=== PATIENT | female | born 1965 | race Caucasian/White ===

== ENCOUNTER 2016-04-26 01:48 | Inpatient (IN) | payer OTHER ==
[~2016-04-26] VITALS: Ht 167.6 cm; Wt 76.4 kg
[~2016-04-26 01:48] MED LIST: CLON-379 PO; DOXY-220 PO; Digoxin PO; FAMO-95 PO; LISI-523 PO; PROP40TA4 PO; RIVA20TA PO; TAP5 PO
--- NOTE | 2016-04-26 02:28 | RADRPT ---
PROCEDURE: XR Chest. CLINICAL INDICATION: Patient experiencing possible Sepsis TECHNIQUE: Portable single view of the chest COMPARISON: 08/25/2015 FINDINGS: Shallower lung inflation accentuates the heart size which likely remains top normal or minimally enl arged. There is slight right base subsegmental atelectasis. Early right base infiltrate is also po ssible. Top normal pulmonary vascularity. No left lung infiltrate or large effusion. There may be a tiny right effusion. No acute bony abnormality. IMPRESSION: Shallow lung inflation. Right base atelectasis and possible early infiltrate. Possible tiny right effusion. RPTAT: [facility] Physician Kayla Date Time Electronically viewed and signed by Carline Owusu Physician on 04/26/2016 02:28 XIMENA/
[2016-04-26] MEDS ORDERED: DILTIAZEM 25 MG INJ IV ONE (02:30)
[2016-04-26 02:46] LABS: BASOPHIL # 0.1 10^3/ul (0.0-0.1); BASOPHILS % 0.7 % (0.0-2.0); EOSINOPHILS % 0.5 % (0.0-7.0); HEMATOCRIT 35.5 % (37.0-47.0); HEMOGLOBIN 11.3 g/dl (12.0-16.0); LYMPHOCYTES # 2.6 10^3/ul (0.8-2.9); LYMPHOCYTES % 29.1 % (15.0-51.0); MEAN CORPUSCULAR HGB CONC 31.7 g/dl (32.0-37.0); MEAN PLATELET VOLUME 8.2 fl (7.4-10.4); MONOCYTE # 0.8 10^3/ul (0.3-0.9); NEUTROPHIL # 5.5 10^3/ul (1.6-7.5); NEUTROPHILS % 60.7 % (39.0-77.0); PLATELET COUNT 316 10^3/UL (140-440); RED CELL DISTRIBUTION WIDTH 16.6 % (11.5-14.5)
[2016-04-26 02:47] LABS: ALBUMIN 3.5 g/dl (3.3-4.9)
[2016-04-26 02:48] LABS: POTASSIUM 4.5 mmol/L (3.5-5.1)
[2016-04-26 02:49] LABS: INR 1.44; PROTIME 17.6 Sec (12.2-14.2); PT RATIO 1.4
[2016-04-26 02:50] LABS: ALBUMIN/GLOBULIN RATIO 0.94; BILIRUBIN,INDIRECT 0.6 mg/dl (0-1.1); BILIRUBIN,TOTAL 0.6 mg/dl (0.2-1.3); CREATININE 0.8 mg/dl (0.44-1.00); TOTAL PROTEIN 7.2 g/dl (6.1-8.1)
[2016-04-26 02:51] LABS: CALCIUM 9.7 mg/dl (8.4-10.2)
[2016-04-26 02:55] LABS: CONDITION 1; LH ANALYZER COMMENTS 1
[2016-04-26 02:59] LABS: PARTIAL THROMBOPLASTIN TIME 24.2 Sec (25.0-35.0)
[2016-04-26 03:05] LABS: TROPONIN-I 0.585 ng/ml (0.00-0.12)
[2016-04-26] MEDS ORDERED: CEFEPIME 2GM/50 ML (PMX) 50 ML IVPB STA (03:23)
[2016-04-26] MEDS ORDERED: SODIUM CHLORIDE 0.9% 1L BAG IV* STA (03:23)
[2016-04-26] MEDS ORDERED: VANCOMYCIN 1 GM (PMX) 250 ML IVPB ONE (03:30)
[2016-04-26] MEDS ORDERED: ONDANSETRON 4 MG INJ IV STA (03:55)
[2016-04-26] MEDS ORDERED: ONDANSETRON 4 MG INJ ONE (03:57)
--- NOTE | 2016-04-26 04:19 | ERA ---
ER Documentation Chief Complaint Date/Time DATE: 04/26/16 TIME: 04:16 Chief Complaint FLU LIKE SYMPTOMS FOR PAST WEEKS WITH RAPID HEART RATE DENIES CP, SOB HPI This is a 50-year-old female with flulike symptoms for the past week. Patient is homeless. Brought in by rescue. Patient also says that she has had a rapid heart rate. She denies chest pain. She denies shortness of breath. Complains she has had a runny nose and a nonproductive cough. ROS All systems reviewed and are negative except as per history of present illness. Medications Home Meds Active Scripts Doxycycline Monohydrate* (Doxycycline Monohydrate*) 100 Mg Tablet, 100 MG PO BID for 5 Days, TAB Prov:REGPUNEETRKASSIE 08/29/15 Propranolol Hcl* (Propranolol Hcl*) 40 Mg Tab, 40 MG PO QID for 30 Days, TAB Prov:REGIDORKASSIE 08/29/15 Rivaroxaban* (Xarelto*) 20 Mg Tablet, 20 MG PO WITH DINNER for 30 Days, TAB Prov:REGIDORKASSIE 08/29/15 Methimazole* (Methimazole*) 5 Mg Tab, 30 MG PO DAILY for 30 Days, TAB Prov:REGIDORKASSIE 08/29/15 Lisinopril* (Zestril*) 5 Mg Tab, 2.5 MG PO DAILY for 3 Days, TAB Prov:REGIDORKASSIE 08/29/15 Famotidine* (Pepcid* AC) 20 Mg Tab, 20 MG PO BID for 30 Days, TAB Prov:REGPUNEETRKASSIE 08/29/15 Clonidine Hcl* (Clonidine Hcl*) 0.1 Mg Tab, 0.1 MG PO Q4H Y for sbp>160, #20 TAB Prov:REGPUNEETRKASSIE 08/29/15 [Digoxin] 0.25 MG TAB No Conflict Check, 0.25 MG PO DAILY@13 for 30 Days, TAB Prov:REGPUNEETRKASSIE 08/29/15 Allergies Allergies: Coded Allergies: No Known Allergy (Unverified , 03/11/14) PMhx/Soc History of Surgery: Yes Anesthesia Reaction: No Hx Neurological Disorder: No Hx Respiratory Disorders: No Hx Cardiac Disorders: Yes Hx Psychiatric Problems: No Hx Miscellaneous Medical Probl: No Hx Alcohol Use: No Hx Substance Use: No Hx Tobacco Use: No Smoking Status: Current every day smoker Physical Exam Vitals Vital Signs Date Time Temp Pulse Resp B/P Pulse Ox O2 Delivery O2 Flow Rate FiO2 04/26/16 01:51 98.8 125 18 126/64 97 04/26/16 01:51 Nasal Cannula 4 04/26/16 01:51 98.6 125 18 123/64 97 Nasal Cannula 4.0 Physical Exam Const: [] Head: Atraumatic Eyes: Normal Conjunctiva ENT: Normal External Ears, Nose and Mouth. Neck: Full range of motion..~ No meningismus. Resp: Clear to auscultation bilaterally Cardio: Regular rate and rhythm, no murmurs Abd: Soft, non tender, non distended. Normal bowel sounds Skin: No petechiae or rashes Back: No midline or flank tenderness Ext: No cyanosis, or edema Neur: Awake and alert Psych: Normal Mood and Affect Result Diagram: 04/26/1622204/26/16222 Results 24 hrs Laboratory Tests Test 04/26/16 02:23 Activated Partial Thromboplast Time 24.2Sec Alanine Aminotransferase (ALT/SGPT) 56IU/L Albumin 3.5g/dl Albumin/Globulin Ratio 0.94 Alkaline Phosphatase 177IU/L Anion Gap 19 Aspartate Amino Transf (AST/SGOT) 47IU/L Basophils # 0.110^3/ul Basophils % 0.7% Blood Morphology Comment Blood Urea Nitrogen 22mg/dl Calcium Level 9.7mg/dl Carbon Dioxide Level 23mmol/L Chloride Level 101mmol/L Creatinine 0.80mg/dl Direct Bilirubin 0.00mg/dl Eosinophils # 0.010^3/ul Eosinophils % 0.5% Globulin 3.70g/dl Glucose Level 99mg/dl Hematocrit 35.5% Hemoglobin 11.3g/dl INR International Normalized Ratio 1.44 Indirect Bilirubin 0.6mg/dl Lactic Acid Level 2.3mmol/L Lymphocytes # 2.610^3/ul Lymphocytes % 29.1% Mean Corpuscular Hemoglobin 25.0pg Mean Corpuscular Hemoglobin Concent 31.7g/dl Mean Corpuscular Volume 79.0fl Mean Platelet Volume 8.2fl Monocytes # 0.810^3/ul Monocytes % 9.0% Neutrophils # 5.510^3/ul Neutrophils % 60.7% Nucleated Red Blood Cells # 0.010^3/ul Nucleated Red Blood Cells % 0.0/100WBC Platelet Count 71402^3/UL Potassium Level 4.5mmol/L Prothrombin Time 17.6Sec Prothrombin Time Ratio 1.4 Red Blood Count 4.5010^6/ul Red Cell Distribution Width 16.6% Sodium Level 138mmol/L Total Bilirubin 0.6mg/dl Total Protein 7.2g/dl Troponin I 0.585ng/ml White Blood Count 9.010^3/ul Current Medications Medications (Trade) Dose Ordered Sig/Nichol Route PRN Reason Start Time Stop Time Status Last Admin Dose Admin Diltiazem HCl (Cardizem Iv) 20 mg ONCE ONCE IV 04/26/16 02:30 04/26/16 02:31 DC 04/26/16 03:10 Sodium Chloride 2020 ml 2,020 ml BOLUS OVER 2 HOURS STAT IV* 04/26/16 03:23 04/26/16 03:29 DC 04/26/16 03:50 Cefepime HCl 50 ml @ 100 mls/hr ONCE STAT IVPB 04/26/16 03:23 04/26/16 03:52 DC 04/26/16 03:45 Vancomycin HCl (Vancocin) 250 ml @ 125 mls/hr ONCE ONCE IVPB 04/26/16 03:30 04/26/16 05:29 Ondansetron HCl (Zofran Inj) 4 mg ONCE STAT IV 04/26/16 03:55 04/26/16 03:59 DC 04/26/16 04:03 Ondansetron HCl (Zofran Inj) 4 mg STK-MED ONCE .ROUTE 04/26/16 03:57 04/26/16 03:58 DC Procedures/MDM EKG: Rate/Rhythm: Irregular rate, tachycardic at 1 44 bpm QRS, ST, T-waves: [No changes consistent w/ acute ischemia] Impression: A. fib with RVR Chest X-ray 1V Interpreted by me: Soft Tissue: No acute abnormalities Bones: No acute abnormalities Mediastinum/Cardiac Silhouette/Lungs: Right lower lobe pneumonia Patient's infectious symptoms have not stabilized and the patient is at risk of rapid decompensation. The patient will be admitted for careful hydration, antibiotic therapy, and infectious source control. Severe Sepsis Assessment: Infectious Source: Pneumonia End organ damage indicated by: [Lactate > 2.0 mmol/L Severe Sepsis Managment: Blood Cultures X 2 before broad spectrum antibiotics initiated within 3 hours of recognition. 30 ml/kg NS bolus Completed Initial Lactate: 2.3 Repeat Lactate pending Critical Care: Time: 45 minutes Treatments/Evaluations: Emergent fluid management, while maintaining close respiratory support. Immediate broad spectrum antibiotic therapy. Simultaneous assessment for possible sources in order to direct therapy. Consideration for invasive and chemical support to prevent respiratory or cardiac collapse. Septic Shock Assessment (1 hour post 30 ml/kg fluid bolus): Hypotension (SBP < 90 or 40 mmHg drop, MAP < 65): [No] Lactic acid > 4.0 [No] Perfusion Reassessment for Septic Shock: Temp 98.6, Pulse 120], RR 18, BP 137/87 Heart Exam: [Tachycardic] Lung Exam: [No Crackles] Capillary Refill: [Delayed] Peripheral Pulses: [Radially present] Skin: [Mottled, pale] Patient also has atrial fibrillation with rapid ventricular response. Patient has known history of A. fib, but has been noncompliant. Patient has a positive troponin. Patient's non-STEMI has been treated with aspirin therapy. hospitalist made aware Accepting Care Team: Current data and ongoing care discussed. Time: 4 AM Primary Provider: geovanna Consulting: None Outstanding Data: none Departure Diagnosis: Primary Impression: Sepsis Qualified Code: A41.9 - Sepsis, due to unspecified organism Additional Impressions: Atrial fibrillation with rapid ventricular response Non-STEMI (non-ST elevated myocardial infarction) Pneumonia Qualified Code: J18.9 - Pneumonia of right lower lobe due to infectious organism Condition: Critical ZARI VALLADARES Apr 26, 2016 04:19
[2016-04-26] MEDS ORDERED: ASPIRIN 81 MG TAB PO ONE (04:30)
[2016-04-26] MEDS ORDERED: DILTIAZEM-D5W 125MG/125ML DRIP 125 ML IV SCH (07:00)
[2016-04-26] MEDS ORDERED: SOD CHLORIDE 0.9% 1,000 ML IV SCH (08:00)
[2016-04-26 08:30] LABS: CK-MB 4.37 ng/ml (0.0-2.4)
[2016-04-26 08:35] LABS: TOTAL PROTEIN 6.4 g/dl (6.1-8.1)
[2016-04-26 08:39] LABS: TROPONIN-I 0.522 ng/ml (0.00-0.12)
[2016-04-26] MEDS ORDERED: SOD CHLORIDE 0.9% 1,000 ML IV STA (08:48)
[2016-04-26 08:52] LABS: IRON 77 ug/dl (35-150)
[2016-04-26] MEDS: LISINOPRIL 5 MG TAB PO SCH (09:00)
[2016-04-26] MEDS ORDERED: PROPRANOLOL 40 MG TAB PO SCH (09:00)
[2016-04-26] MEDS: ASPIRIN (EC) 81 MG TAB PO SCH (09:00)
[2016-04-26] MEDS: FAMOTIDINE 20 MG TAB PO SCH ×2 (09:00→22:37)
[2016-04-26 09:02] LABS: TOTAL IRON BINDING CAPACITY 391 ug/dl (241-421)
--- NOTE | 2016-04-26 09:24 | HP ---
DATE OF ADMISSION: 04/26/2016 PRESENTING COMPLAINT: Flu-like symptoms, palpitations and a feeling of having a rapid heart rate. HISTORY OF PRESENTING COMPLAINT: This is a 50-year-old female known to our service because of a his tory thyrotoxicosis, atrial fibrillation, noncompliance with therapy, who was brought in today by [facility] [place] because of runny nose, cold and cough, congestion and palpitations. In the emergency r oom, she was found to be in atrial fibrillation with rapid ventricular response and a preliminary wo rkup did show she has an elevated troponin and she is being admitted for further management and inte rvention. PAST MEDICAL HISTORY: Positive for the followin. Thyrotoxicosis, hypothyroidism, likely secondary to Graves' disease. 2. Atrial fibrillation, chronic. 3. High blood pressure. 4. Chronic heart failure secondary to thyroid disease as well as AFib. 5. Chronic tobacco dependence. PAST SURGICAL HISTORY: Positive for and tumor removal on her scalp. ALLERGIES: THE PATIENT HAS NO KNOWN DRUG ALLERGIES. SOCIAL HISTORY: She is a current every day smoker. Denies illicit drug use or alcohol use. The pat ely has remote history of cocaine and methamphetamine use in the past. She is also sober at this t [facility], used to drink alcohol heavily in the past as well FAMILY HISTORY: Positive for heart disease in her grandmother, diabetes in her mother. PHYSICAL EXAMINATION VITAL SIGNS: Temperature 98.8, pulse anywhere from 133 to 155, respirations 18, blood pressure 119/ 80, saturations 99% on room air. GENERAL: I found a somewhat frail lady who is sleepy at time of my review, but arousable and once a roused, able to answer questions appropriately. HEENT: Head is normocephalic. Pupils equal and reactive with mild conjunctival pallor. RESPIRATORY: Clear to auscultation with good air entry. CARDIOVASCULAR: Tachycardic with irregularly irregular rhythm. No murmurs noted though. Trace low er extremity edema bilaterally. ABDOMEN: Soft, nontender, nondistended with normoactive bowel sounds. EXTREMITIES: She has no joint swelling or deformities. NEUROLOGIC: She has no focal deficits other than that she was lethargic and sleepy. SKIN: Negative for ____ . LABORATORY VALUES: The following abnormalities were pertinent: 1. BUN of 22. 2. Troponin 0.585, which is elevated. 3. Elevated AST of 47 as well as an alkaline phosphatase of 177. 4. Hypochromic microcytic anemia that is chronic for her, with a hemoglobin of 11, which is actuall y better than her previous baseline. IMAGING: EKG shows atrial fibrillation with rapid ventricular response. Chest x-ray shows shallow lung inflation with right base atelectasis and a possible early infiltrate on the right and echocardiogram July of 2015 showed EF of 35%. Moderate mitral regurgitation, peak arterial pressure of 24, normal, mild concentric left ventricular hypertrophy and trace tricuspid r egurgitation. IMPRESSION: A 50-year-old female with the followin. Atrial fibrillation with rapid ventricular response, likely secondary to #3. 2. Non-ST elevation myocardial infarction, likely secondary to #1. 3. Hypothyroidism with likely thyrotoxicosis thought to be secondary to underlying Graves' disease with probable noncompliance with therapy. 4. Chronic cardiomyopathy with last known ejection fraction of 35%, drug induced versus ischemic. 5. Probable mild congestive heart failure exacerbation. It is an acute variable systolic congestive heart failure exacerbation. 6. Acute community-acquired pneumonia with probable early sepsis and lactic acidosis with tachycard ia and lactic acidosis. 7. The patient has history of polysubstance abuse to include meth, heroin as well as alcohol. PLAN: Admit the patient to telemetry floor, complete ACS rule out. Continue the patient on anticoagu lation with home Xarelto, and patient will be also continued on digoxin therapy. The patient to be resumed on her home medication propranolol as well as methimazole and continue her ANGELIQUE inhibitor whi le she is here. Throughout time the patient was here, she was also on Lasix therapy daily. This does not reflect in her home meds. I will go ahead and resume that and I will barry culture her to include blood and urin e cultures and also commence empiric antibiotics for community-acquired pneumonia until our antibiot ics according to our findings. For her rapid AFib she is put on a Cardizem drip while we wait for he r oral medications to kick in and she will need close monitoring and further interventions will depe nd on our findings. For prophylaxis she is on Xarelto and Pepcid and further interventions will dep end on clinical course. Consultations will be obtained with cardiology, Dr. Umana and endocrinology, Dr. Santos. Dictated By: JOSE PALOMINO MD BA/NTS Conf#: [id number] DID#: [id number]
[2016-04-26] MEDS ORDERED: DIGOXIN 500 MCG INJ IV ONE ×3 (10:00→22:00)
[2016-04-26] MEDS ORDERED: ESMOLOL 250 ML IV SCH (10:00)
--- NOTE | 2016-04-26 10:08 | QN ---
Documentation Comment Observation Note: Time: 4 hours Family Hx: Negative for diabetes Evaluation: Multiple exams showed improving symptoms and no evidence of clinical decompensation. ROYAL DINERO MD Apr 26, 2016 10:08
--- NOTE | 2016-04-26 10:15 | CONS ---
Date/Time of Note Date/Time of Note DATE: 04/26/16 TIME: 10:05 Assessment/Plan Assessment/Plan Chief Complaint/Hosp Course Acute on chronic systolic/diastolic heart failure: The patient is decompensated currently. Her EF is known to be ~35%. Unclear what the trigger was but possibly thyrotoxicosis leading to afib with RVR leading to CHF. Needs diuresis Afib with RVR: Secondary to thyrotoxicosis but exacerbating and exacerbated by heart failure Thyrotoxicosis NSTEMI: type 2 in setting of all three above. EF known to be low. As she is asymptomatic, at this time further ischemic evaluation may be difficult as she has multiple admissions due to noncompliance and if she would need a stent, this would make the situation more difficult. Once she has established outpt follow up she certainly needs ischemic eval. Cardiomyopathy: EF 35%. Most likely nonischemic but needs ischemic eval at some point Hyperthyroidism -stop IVF -start lasix 40mg IV BID -switch cardizem drip to esmolol as the pt has low EF and heart failure and would be better for her thyrotoxicosis as well -reload with digoxin as her levels are low and pt admits to not taking her meds -increase propranolol to 80mg q6h. Ideally eventually should be switched to a BB approved for cardiomyopathy Problems: Consultation Date/Type/Reason Admit Date/Time Date of Consultation: Apr 26, 2016 Type of Consultation: Cardiology Referring Provider: JOSE PALOMINO Hx of Present Illness 50 yo homeless female with a h/o med noncompliance, hyperthyroidism, afib on Xarelto, chronic systolic heart failure (EF 35%), who presented with "flu like symptoms" and was found to have thyrotoxicosis, afib with RVR, NSTEMI. The patient notes that she does not receive outpt follow up and so has not been taking any of her meds. She notes that she has been having a "flu" which she notes is associate with SOB, rapid heart rate, nausea/vomiting/diarrhea. She currently still feels ill. She denies ever having chest pain. per HPI Past Medical History per HPI Past Surgical History Past Surgical Hx: other Social History Smoking Status: Current every day smoker Exam/Review of Systems Vital Signs Vitals Vital Signs Date Time Temp Pulse Resp B/P Pulse Ox O2 Delivery O2 Flow Rate FiO2 04/26/16 09:18 120 20 107/43 99 Room Air 04/26/16 01:51 98.8 04/26/16 01:51 4 Exam Constitutional: alert, distress (mild respiratory ), oriented, other ( disheveled, unkempt) Head: atraumatic, normocephalic Neck: jvd (10cm) Respiratory: crackles/rales, wheezing, No clear to auscultation Cardiovascular: edema (1+), No regular rate and rhythm (IRIR, tachycardic), No systolic murmur Gastrointestinal: distended, non-tender, soft Neurological: nl mental status, nl speech Skin: No rash or lesions Results Result Diagram: 04/26/1622204/26/16222 Results 24 hrs Laboratory Tests Test 04/26/16 02:23 04/26/16 07:55 Activated Partial Thromboplast Time 24.2 L Alanine Aminotransferase (ALT/SGPT) 56 55 Albumin 3.5 3.0 L Albumin/Globulin Ratio 0.94 Alkaline Phosphatase 177 H 159 H Anion Gap 19 H Aspartate Amino Transf (AST/SGOT) 47 H 61 H Basophils # 0.1 Basophils % 0.7 Blood Morphology Comment Blood Urea Nitrogen 22 H Calcium Level 9.7 Carbon Dioxide Level 23 Chloride Level 101 Creatinine 0.80 Direct Bilirubin 0.00 0.00 Eosinophils # 0.0 Eosinophils % 0.5 Globulin 3.70 H Glucose Level 99 Hematocrit 35.5 L Hemoglobin 11.3 L INR International Normalized Ratio 1.44 Indirect Bilirubin 0.6 1.0 Lactic Acid Level 2.3 H 2.5 H Lymphocytes # 2.6 Lymphocytes % 29.1 Mean Corpuscular Hemoglobin 25.0 L Mean Corpuscular Hemoglobin Concent 31.7 L Mean Corpuscular Volume 79.0 L Mean Platelet Volume 8.2 Monocytes # 0.8 Monocytes % 9.0 Neutrophils # 5.5 Neutrophils % 60.7 Nucleated Red Blood Cells # 0.0 Nucleated Red Blood Cells % 0.0 Platelet Count 316 # Potassium Level 4.5 Prothrombin Time 17.6 H Prothrombin Time Ratio 1.4 Red Blood Count 4.50 Red Cell Distribution Width 16.6 H Sodium Level 138 Total Bilirubin 0.6 1.0 Total Protein 7.2 6.4 Troponin I 0.585 *H 0.522 *H White Blood Count 9.0 # Creatine Kinase 55 Creatine Kinase Index 7.9 Creatinine Kinase MB (Mass) 4.37 H Digoxin Level < 0.4 L Iron Level 77 Magnesium Level 1.5 L Percent Iron Saturation 20 L Thyroid Stimulating Hormone (TSH) < 0.015 L Total Iron Binding Capacity 391 Medications Medications Current Medications Famotidine (Pepcid) 20 mg BID PO ; Start 04/26/16 at 09:00 Lisinopril (Zestril) 2.5 mg DAILY PO ; Start 04/26/16 at 09:00 Methimazole (Tapazole) 30 mg DAILY PO ; Start 04/26/16 at 09:00; Status UNV Propranolol HCl (Inderal) 40 mg QID PO ; Start 04/26/16 at 09:00 Digoxin (Digoxin) 0.25 mg DAILY@13 PO ; Start 04/26/16 at 13:00 Aspirin 81 mg 81 mg DAILY PO ; Start 04/26/16 at 09:00 Sodium Chloride 1,000 ml @ 100 mls/hr Q10H IV ; Start 04/26/16 at 08:00; Stop 04/26/16 at 17:59 Diltiazem HCl 125 ml @ 5 mls/hr TITRATE IV Last administered on 04/26/16at 07: 33; Admin Dose 5 MLS/HR; Start 04/26/16 at 07:00 Ceftriaxone Sodium 50 ml @ 100 mls/hr Q24H IVPB ; Start 04/26/16 at 09:00 Azithromycin (Zithromax 500mg/ NS (Pmx)) 250 ml @ 250 mls/hr Q24H IVPB ; Start 04/26/16 at 08:00 JELLY COOK Apr 26, 2016 10:15
[2016-04-26] MEDS ORDERED: MAGNESIUM SULFATE 2 GM/50 ML 50 ML IVPB ONE (10:30)
--- NOTE | 2016-04-26 10:31 | RADRPT ---
Echocardiogram Report Patient Name: CHRISTOPHER NOGUEIRA Gender: Female Date: 1965 Study Date: 26-Apr-2016 Wool Grader: Fallon Degroot RDCS Location: [facility] Ref. Physician: JOSE PALOMINO Quality: Good Procedures: Transthoracic echocardiogram with complete 2D, M-Mode, and doppler examination. Indications: NSTEMI. 2D/M Mode Doppler Measurement Value Normal Ranges Measurement Value Normal Ranges LVIDd 2D 5.5 3.5 - 5.6 cm AV Peak Kris 1.2 m/sec LVIDs 2D 3.9 2.1 - 4.1 cm AV Peak PG 6.0 mmHg LVPWd 2D 1.0 0.6 - 1.1 cm LVOT Peak Kris 0.8 m/sec IVSd 2D 1.0 0.6 - 1.1 cm LVOT Peak PG 2.4 mmHg AoR Diam 2D 2.7 2.0 - 3.7 cm TR Peak Kris 3.3 m/sec EDV 2D 145.7 cm3 TR Peak PG 44.8 mmHg ESV 2D 60.7 cm3 RVSP 60.0 mmHg LA Dimen 2D 3.8 2.3 - 4.0 cm Findings Left Ventricle: Normal left ventricular wall thickness. Mild enlargement of left ventricle cavity. Severe left ventricular systolic dysfunction. Ejection fraction is visually estimated at 3035 %. Resting Segmental Wall Motion Analysis: Overall global hypokinesis but the septum appears worse. Right Ventricle: Mild enlargement of right ventricle. Mild right ventricular hypokinesis. Left Atrium: There is severe enlargement of left atrium. Right Atrium: There is moderate enlargement of right atrium. Mitral Valve: Mitral valve leaflets appear mildly thickened. Severe mitral valve regurgitation. Aortic Valve: Normal appearance of the aortic valve. No significant aortic stenosis or insufficiency. Tricuspid Valve: Normal appearance of the tricuspid valve. Estimated peak PA systolic pressure 65 mmHg. There is moderate to severe tricuspid regurgitation. Pulmonic Valve: Normal pulmonic valve appearance. There is trace pulmonic regurgitation. Pericardium: Normal pericardium with no significant pericardial effusion. Aorta: Normal aortic root. IVC: Dilated IVC without respiratory collapse consistent with elevated right atrial pressure. Pulmonary Artery: Normal pulmonary artery size. Conclusions 1.Normal left ventricular wall thickness. Mild enlargement of left ventricle cavity. Severe left ventricular systolic dysfunction. Ejection fraction is visually estimated at 30-35 %. Overall global hypokinesis but the septum appears worse. 2.Mild enlargement of right ventricle. Mild right ventricular hypokinesis. 3.Severe mitral valve regurgitation. 4.There is moderate to severe tricuspid regurgitation. 5.There is severe enlargement of left atrium. There is moderate enlargement of the right atrium. 6.PAP is estimated to be 65 mmHg based on RA pressure of 15 mmHg. Electronically Signed By: Francisco Javier Adames 26-Apr-2016 10:30:20 -0800 Patient Name: CHRISTOPHER NOGUEIRA Study Date: 26-Apr-2016 [id number]
[2016-04-26] MEDS: ONDANSETRON 4 MG INJ IV PRN (10:56)
[2016-04-26] MEDS: CEFTRIAXONE 1 GM/50 ML (PMX) 50 ML IVPB SCH (11:14)
[2016-04-26 11:21] LABS: T3 UPTAKE 48.9 % (23.5-40.5)
--- NOTE | 2016-04-26 11:41 | QN ---
Documentation Comment Received a call from laboratory at approximately 11:20 AM with a lactic acid of 5.6. This would change the diagnosis from sepsis to septic shock. Time of diagnosis of septic shock at 11:20 AM. The patient already had fluid bolus and reperfusion examination done by Dr. Aguirre. ROYAL DINERO MD Apr 26, 2016 11:41
[2016-04-26] MEDS: AZITHROMYCIN 500MG/NS (PMX) 250 ML IVPB SCH (11:57)
[2016-04-26] MEDS: PROPRANOLOL 40 MG TAB PO SCH ×2 (12:49→17:00)
[2016-04-26] MEDS ORDERED: DIGOXIN 0.25 MG TAB PO SCH (13:00)
[2016-04-26 16:23] VITALS: TEMP 97.2
[2016-04-26 17:12] LABS: CK-MB 4.15 ng/ml (0.0-2.4)
[2016-04-26 17:16] LABS: TROPONIN-I 0.42 ng/ml (0.00-0.12)
[2016-04-26] MEDS: METHIMAZOLE 5 MG TAB PO SCH (18:26)
--- NOTE | 2016-04-26 18:30 | CONS ---
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 Pt. already on esmolol drip. Pt. not in thyroid storm by criteria. Pt. NEEDS radioactive iodine ablation of her gland and this will not be done here, inpatient or outpatient. Therefore, she must be sent to a [facility] facility for this intervention. Qualifiers: Qualified Code: E05.00 - Thyrotoxicosis with diffuse goiter and without thyroid storm Consultation Date/Type/Reason Admit Date/Time 04/26/2016 @ ? Date of Consultation: Apr 26, 2016 Type of Consultation: Endocrinology Reason for Consultation Thyrotoxicosis Referring Provider: JOSE PALOMINO Hx of Present Illness 50 y/o C F w/ h/o Graves disease x 20 y, homelessness, IVDA, in [facility] until 8 months ago when she was admitted to [facility] w/ her 1st episode of A-fib w/ RVR and CHF. Pt. treated, stabilized and d/c'ed. At that time I instructed the pt. to self-refer to [facility] to get radioactive iodine therapy for her Grave's disease. Pt. admits that after that she felt well so she decided not to go. Notes that 3 months ago began to have SOB. [place] it could not be PNA b/c was too warm outside. SOB worsening off and on over the last 3 months until last night when it became severe and was associated w/ chest pains. Pt. had a friend call 911. Brought in to [facility] where she was found to be in A-fib w/ RVR, CHF, troponins (+). ECHO shows depressed LV systolic fxn, MVR, LAE, elevated PA pressures. Constitutional: no complaints Eyes: no complaints ENT: no complaints Respiratory: pleuritic pain, shortness of breath Cardiovascular: chest pain, palpitations Gastrointestinal: no complaints Genitourinary: no complaints Musculoskeletal: no complaints Neurologic: no complaints Past Medical History Medical History: congestive heart failure, hyperthyroid, other (A-fib) Past Surgical History Past Surgical Hx: other ( section as well as scalp tumor removal) Family History Significant Family History: heart disease, diabetes, other (colitis) Social History b. 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, , 3 children Alcohol Use: sober (used to drink heavily) Smoking Status: Current every day smoker Drug Use: cocaine (quit), other (meth, quit) Exam/Review of Systems Vital Signs Vitals VS - Last 72 Hours, by Label Date Time Temp Pulse Resp B/P Pulse Ox O2 Delivery O2 Flow Rate FiO2 04/26/16 16:23 97.2 109 20 145/95 100 Room Air 04/26/16 15:12 97 21 99/65 96 Room Air 04/26/16 13:27 102 25 95/68 95 Room Air 04/26/16 11:58 97.5 104 22 124/80 99 Room Air 04/26/16 11:43 97 112/91 04/26/16 11:14 120 103/75 04/26/16 11:06 119 102/72 04/26/16 09:54 118 105/81 04/26/16 09:18 120 20 107/43 99 Room Air 04/26/16 08:21 128 121/92 04/26/16 07:52 158 111/73 04/26/16 06:50 132 23 103/90 96 Room Air 04/26/16 04:31 155 18 119/88 99 Room Air 04/26/16 01:51 98.8 125 18 126/64 97 04/26/16 01:51 Nasal Cannula 4 04/26/16 01:51 98.6 125 18 123/64 97 Nasal Cannula 4.0 Vital Signs Date Time Temp Pulse Resp B/P Pulse Ox O2 Delivery O2 Flow Rate FiO2 04/26/16 16:23 97.2 109 20 145/95 100 Room Air 04/26/16 01:51 4 Exam Constitutional: alert, frail, oriented Psych: nl mood/affect, no complaints Eyes: EOMI, PERRL, nl conjunctiva, nl lids, nl sclera ENMT: mucosa pink and moist, nl external ears & nose Neck: non-tender, supple, No bruits, No masses, No thyromegaly Respiratory: crackles/rales (R base) Cardiovascular: irregular rhythm (and tachycardic), No edema, No murmurs/extra sounds, No regular rate and rhythm, No rub Gastrointestinal: bowel sounds, nl liver, spleen, non-tender, soft, No mass, No rebound or guarding Musculoskeletal: nl extremities to inspection Extremities: normal pulses, No clubbing, No cyanosis, No edema Neurological: MACHINIST BENCH II-XII intact, nl mental status, nl speech, nl strength Results Result Diagram: 04/26/163 04/26/16222 Results 24 hrs Laboratory Tests Test 04/26/16 02:23 04/26/16 07:55 04/26/16 11:10 04/26/16 16:30 Activated Partial Thromboplast Time 24.2 L Alanine Aminotransferase (ALT/SGPT) 56 55 Albumin 3.5 3.0 L Albumin/Globulin Ratio 0.94 Alkaline Phosphatase 177 H 159 H Anion Gap 19 H Aspartate Amino Transf (AST/SGOT) 47 H 61 H Basophils # 0.1 Basophils % 0.7 Blood Morphology Comment Blood Urea Nitrogen 22 H Calcium Level 9.7 Carbon Dioxide Level 23 Chloride Level 101 Creatinine 0.80 Direct Bilirubin 0.00 0.00 Eosinophils # 0.0 Eosinophils % 0.5 Free Thyroxine Index 9.24 H Globulin 3.70 H Glucose Level 99 Hematocrit 35.5 L Hemoglobin 11.3 L INR International Normalized Ratio 1.44 Indirect Bilirubin 0.6 1.0 Lactic Acid Level 2.3 H 2.5 H 5.6 *H Lymphocytes # 2.6 Lymphocytes % 29.1 Mean Corpuscular Hemoglobin 25.0 L Mean Corpuscular Hemoglobin Concent 31.7 L Mean Corpuscular Volume 79.0 L Mean Platelet Volume 8.2 Monocytes # 0.8 Monocytes % 9.0 Neutrophils # 5.5 Neutrophils % 60.7 Nucleated Red Blood Cells # 0.0 Nucleated Red Blood Cells % 0.0 Platelet Count 316 # Potassium Level 4.5 Prothrombin Time 17.6 H Prothrombin Time Ratio 1.4 Red Blood Count 4.50 Red Cell Distribution Width 16.6 H Sodium Level 138 Thyroxine (T4) 18.9 H Total Bilirubin 0.6 1.0 Total Protein 7.2 6.4 Triiodothyronine (T3) Uptake 48.9 H Troponin I 0.585 *H 0.522 *H 0.420 *H White Blood Count 9.0 # Creatine Kinase 55 50 Creatine Kinase Index 7.9 8.3 Creatinine Kinase MB (Mass) 4.37 H 4.15 H Digoxin Level < 0.4 L Iron Level 77 Magnesium Level 1.5 L Percent Iron Saturation 20 L Thyroid Stimulating Hormone (TSH) < 0.015 L Total Iron Binding Capacity 391 Medications Medications Current Medications Famotidine (Pepcid) 20 mg BID PO Last administered on 04/26/16at 09:00; Admin Dose 20 MG; Start 04/26/16 at 09:00 Lisinopril (Zestril) 2.5 mg DAILY PO ; Start 04/26/16 at 09:00 Methimazole (Tapazole) 30 mg DAILY PO ; Start 04/26/16 at 09:00; Status UNV Aspirin 81 mg 81 mg DAILY PO ; Start 04/26/16 at 09:00 Diltiazem HCl 125 ml @ 5 mls/hr TITRATE IV Last administered on 04/26/16at 07: 33; Admin Dose 5 MLS/HR; Start 04/26/16 at 07:00 Ceftriaxone Sodium 50 ml @ 100 mls/hr Q24H IVPB Last administered on at 11:14; Admin Dose 100 MLS/HR; Start 04/26/16 at 09:00 Azithromycin (Zithromax 500mg/ NS (Pmx)) 250 ml @ 250 mls/hr Q24H IVPB Last administered on 04/26/16at 11:57; Admin Dose 250 MLS/HR; Start 04/26/16 at 08: 00 Digoxin (Digoxin) 0.25 mg DAILY@13 PO ; Start 04/27/16 at 13:00 Propranolol HCl (Inderal) 80 mg QID PO ; Start 04/26/16 at 13:00 Digoxin 250 mcg 250 mcg ONCE ONCE IV ; Start 04/26/16 at 22:00; Stop at 22:01 Esmolol HCl/ Sodium Chloride (Brevibloc) 250 ml @ 0 mls/hr TITRATE IV Last administered on 04/26/16at 10:50; Admin Dose 19.5 MLS/HR; Start 04/26/16 at 10: 00 Ondansetron HCl (Zofran Inj) 4 mg Q4 PRN IV nausea Last administered on at 10:56; Admin Dose 4 MG; Start 04/26/16 at 11:00 VIRI ROSALES MD Apr 26, 2016 18:30
[2016-04-26] MEDS: FUROSEMIDE 40 MG INJ IV SCH ×2 (18:42→18:43)
[2016-04-26] MEDS: RIVAROXABAN 20 MG TABLET PO SCH (18:45)
[2016-04-26 21:30] VITALS: BP 128/78; RESP 20
[2016-04-26 21:41] VITALS: PULSE 102
[2016-04-26 23:18] VITALS: PULSE 167
[2016-04-27] VITALS (13 sets, daily range): BP systolic 107–122; BP diastolic 62–82; PULSE 36–122; RESP 18–20; Ht 167.6 cm; Wt 76.4 kg
[2016-04-27] MEDS: PROPRANOLOL 40 MG TAB PO SCH ×2 (00:20→08:38)
[2016-04-27 00:25] LABS: ADD UMIC YES; URINE BILIRUBIN (Dip) NEGATIVE (NEGATIVE); URINE BLOOD (Dip) TRACE (NEGATIVE); URINE COLOR LT. YELLOW (YELLOW); URINE GLUCOSE (Dip) NEGATIVE (NEGATIVE); URINE KETONES (Dip) NEGATIVE (NEGATIVE); URINE LEUKOCYTE ESTERASE (Dip) NEGATIVE (NEGATIVE); URINE NITRITE (Dip) NEGATIVE (NEGATIVE); URINE TOTAL PROTEIN (Dip) NEGATIVE (NEGATIVE); URINE UROBILINOGEN (Dip) 0.2 E.U./dL (0.1-1.0)
[2016-04-27 01:09] LABS: MUCUS,URINE FEW; SQUAMOUS EPITHELIAL CELL,UR FEW
[2016-04-27 01:23] LABS: BARBITURATES NEGATIVE (NEGATIVE); BENZODIAZEPINES NEGATIVE (NEGATIVE); CANNABINOIDS NEGATIVE (NEGATIVE); COCAINE NEGATIVE (NEGATIVE); OPIATES NEGATIVE (NEGATIVE)
[2016-04-27] MEDS: FUROSEMIDE 40 MG INJ IV SCH ×2 (05:37→17:16)
[2016-04-27 07:38] LABS: BASOPHILS % 0.6 % (0.0-2.0); EOSINOPHILS # 0.1 10^3/ul (0.0-0.5); EOSINOPHILS % 1.8 % (0.0-7.0); HEMATOCRIT 30.6 % (37.0-47.0); HEMOGLOBIN 9.7 g/dl (12.0-16.0); LYMPHOCYTES % 14.9 % (15.0-51.0); MEAN CORPUSCULAR HEMOGLOBIN 25.3 pg (29.0-33.0); MEAN CORPUSCULAR HGB CONC 31.6 g/dl (32.0-37.0); MEAN PLATELET VOLUME 8.1 fl (7.4-10.4); MONOCYTE # 0.7 10^3/ul (0.3-0.9); MONOCYTES % 10.2 % (0.0-11.0); NEUTROPHIL # 5.1 10^3/ul (1.6-7.5); NEUTROPHILS % 72.5 % (39.0-77.0); PLATELET COUNT 254 10^3/UL (140-440); RED BLOOD COUNT 3.82 10^6/ul (4.20-5.40); RED CELL DISTRIBUTION WIDTH 16.9 % (11.5-14.5)
[2016-04-27 07:39] LABS: CONDITION 1; LH ANALYZER COMMENTS 1
[2016-04-27 07:51] LABS: POTASSIUM 4.1 mmol/L (3.5-5.1)
[2016-04-27 07:53] LABS: CREATININE 0.86 mg/dl (0.44-1.00)
[2016-04-27 07:54] LABS: CALCIUM 8.9 mg/dl (8.4-10.2); CHOL/HDL RATIO 3.4 RATIO
[2016-04-27] MEDS: METHIMAZOLE 5 MG TAB PO SCH (08:37)
[2016-04-27] MEDS: LISINOPRIL 5 MG TAB PO SCH (08:38)
[2016-04-27] MEDS: ASPIRIN (EC) 81 MG TAB PO SCH (08:38)
[2016-04-27] MEDS: FAMOTIDINE 20 MG TAB PO SCH ×2 (08:38→21:23)
[2016-04-27] MEDS: CEFTRIAXONE 1 GM/50 ML (PMX) 50 ML IVPB SCH (08:46)
[2016-04-27] MEDS: AZITHROMYCIN 500MG/NS (PMX) 250 ML IVPB SCH (09:52)
--- NOTE | 2016-04-27 11:19 | CONS ---
Date/Time of Note Date/Time of Note DATE: 04/27/16 TIME: 11:15 Assessment/Plan Assessment/Plan Chief Complaint/Hosp Course Acute on chronic systolic/diastolic heart failure: The patient is decompensated currently. Her EF is ~30-35%. Unclear what the trigger was but possibly thyrotoxicosis leading to afib with RVR leading to CHF. Needs diuresis but improving Afib with RVR: Secondary to thyrotoxicosis but exacerbating and exacerbated by heart failure. 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 EF 30-35%. As she is asymptomatic , at this time further ischemic evaluation may be difficult as she has multiple admissions due to noncompliance and if she would need a stent, this would make the situation more difficult. Once she has established outpt follow up she certainly needs ischemic eval. Cardiomyopathy: EF 35%. Most likely nonischemic but needs ischemic eval at some point Hyperthyroidism -continue lasix 40mg IV BID -continue digoxin, check level tomorrow -switch propranolol to bisoprolol 10mg daily as better for cardiomyopathy as well -will follow Problems: Consultation Date/Type/Reason Admit Date/Time Apr 26, 2016 at 03:59 Initial Consult Date 04/26/16 Type of Consultation: Cardiology Referring Provider: JOSE PALOMINO 24 HR Interval Summary Free Text/Dictation HR much better controlled and now off esmolol drip. No I/O recorded but pt notes that she is urinating frequently. Exam/Review of Systems Vital Signs Vitals Vital Signs Date Time Temp Pulse Resp B/P Pulse Ox O2 Delivery O2 Flow Rate FiO2 04/27/16 08:39 77 04/27/16 07:52 97.8 18 122/74 94 04/26/16 20:22 Room Air 04/26/16 01:51 4 Intake and Output 04/26/16 04/26/16 04/27/16 14:59 22:59 06:59 Intake Total 450 ml Balance 450 ml Exam Constitutional: alert, oriented Psych: no complaints Neck: jvd (10cm) Respiratory: crackles/rales Cardiovascular: edema (1+), systolic murmur (2/6 systolic ), No regular rate and rhythm (regular rate, irregular rhythm ) Gastrointestinal: non-tender, soft Neurological: nl mental status, nl speech Results Result Diagram: 04/27/16 0655 04/27/16 0655 Results 24 hrs Laboratory Tests Test 04/26/16 16:30 04/26/16 23:30 04/27/16 06:55 04/27/16 10:34 Creatine Kinase 50 Creatine Kinase Index 8.3 Creatinine Kinase MB (Mass) 4.15 H Troponin I 0.420 *H Urine Amphetamines Screen NEGATIVE Urine Barbiturates NEGATIVE Urine Benzodiazepines Screen NEGATIVE Urine Bilirubin NEGATIVE Urine Cannabinoids NEGATIVE Urine Clarity CLEAR Urine Cocaine Screen NEGATIVE Urine Color LT. YELLOW Urine Glucose NEGATIVE Urine Hemoglobin TRACE Urine Ketones NEGATIVE Urine Leukocyte Esterase NEGATIVE Urine Microscopic RBC 2-5 Urine Microscopic WBC 0-2 Urine Mucus FEW Urine Nitrite NEGATIVE Urine Opiates Screen NEGATIVE Urine Specific [place] 1.010 Urine Squamous Epithelial Cells FEW Urine Total Protein NEGATIVE Urine Urobilinogen 0.2 E.U./dL Urine pH 5.5 Anion Gap 17 H Basophils # 0.0 Basophils % 0.6 Blood Morphology Comment Blood Urea Nitrogen 26 H Calcium Level 8.9 Carbon Dioxide Level 23 Chloride Level 101 Cholesterol Level 83 L Cholesterol/HDL Ratio 3.4 Creatinine 0.86 Eosinophils # 0.1 Eosinophils % 1.8 Glucose Level 92 HDL Cholesterol 24 L Hematocrit 30.6 L Hemoglobin 9.7 L LDL Cholesterol, Calculated 45 Lymphocytes # 1.0 Lymphocytes % 14.9 L Mean Corpuscular Hemoglobin 25.3 L Mean Corpuscular Hemoglobin Concent 31.6 L Mean Corpuscular Volume 80.0 L Mean Platelet Volume 8.1 Monocytes # 0.7 Monocytes % 10.2 Neutrophils # 5.1 Neutrophils % 72.5 Nucleated Red Blood Cells # 0.0 Nucleated Red Blood Cells % 0.0 Platelet Count 254 Potassium Level 4.1 Red Blood Count 3.82 L Red Cell Distribution Width 16.9 H Sodium Level 137 Triglycerides Level 71 White Blood Count 7.0 # Lactic Acid Level 3.7 H Medications Medications Current Medications Famotidine (Pepcid) 20 mg BID PO Last administered on 04/27/16at 08:38; Admin Dose 20 MG; Start 04/26/16 at 09:00 Lisinopril (Zestril) 2.5 mg DAILY PO Last administered on 04/27/16at 08:38; Admin Dose 2.5 MG; Start 04/26/16 at 09:00 Methimazole (Tapazole) 30 mg DAILY PO Last administered on 04/27/16 08:37; Admin Dose 30 MG; Start 04/26/16 at 18:00 Aspirin 81 mg 81 mg DAILY PO Last administered on 04/27/16 08:38; Admin Dose 81 MG; Start 04/26/16 at 09:00 Diltiazem HCl 125 ml @ 5 mls/hr TITRATE IV Last administered on 04/26/16 07: 33; Admin Dose 5 MLS/HR; Start 04/26/16 at 07:00 Ceftriaxone Sodium 50 ml @ 100 mls/hr Q24H IVPB Last administered on 08:46; Admin Dose 100 MLS/HR; Start 04/26/16 at 09:00 Azithromycin (Zithromax 500mg/ NS (Pmx)) 250 ml @ 250 mls/hr Q24H IVPB Last administered on 04/27/16 09:52; Admin Dose 250 MLS/HR; Start 04/26/16 at 08: 00 Digoxin (Digoxin) 0.25 mg DAILY@13 PO ; Start 04/27/16 at 13:00 Propranolol HCl (Inderal) 80 mg QID PO Last administered on 04/27/16 08:38; Admin Dose 80 MG; Start 04/26/16 at 13:00 Ondansetron HCl (Zofran Inj) 4 mg Q4 PRN IV nausea Last administered on 10:56; Admin Dose 4 MG; Start 04/26/16 at 11:00 JELLY COOK Apr 27, 2016 11:19
[2016-04-27] MEDS: BISOPROLOL 5 MG TAB PO SCH (13:08)
[2016-04-27] MEDS: DIGOXIN 0.25 MG TAB PO SCH (13:08)
--- NOTE | 2016-04-27 13:16 | PN ---
Date/Time of Note Date/Time of Note DATE: 04/27/16 TIME: 13:11 Assessment/Plan VTE Prophylaxis VTE Prophylaxis Intervention: heparin Lines/Catheters IV Catheter Type (from Nrsg): Saline Lock Assessment/Plan Assessment/Plan 1. Atrial fibrillation with rapid ventricular response, likely secondary to #3. 2. Non-ST elevation myocardial infarction 3. Hypothyroidism with thyrotoxicosis thought to be secondary to underlying Graves' disease with probable noncompliance with therapy. 4. Cardiomyopathy with last known ejection fraction of 35%, drug induced versus ischemic. 5. Congestive heart failure exacerbation. It is an acute variable systolic congestive heart failure exacerbation. 6. Acute community-acquired pneumonia with probable early sepsis and lactic acidosis with tachycardia and lactic acidosis. 7. Hx of Polysubstance abuse to include meth, heroin as well as alcohol. PLAN Cont current medical mgmt. Rate is controlled. Appreciate cardiology and endocrine Cont telemetry monitoring Cont abx. will trend lactate. will give IVF bolus Subjective 24 Hr Interval Summary Free Text/Dictation c/o dizziness when ambulating Exam/Review of Systems Vital Signs Vitals Vital Signs Date Time Temp Pulse Resp B/P Pulse Ox O2 Delivery O2 Flow Rate FiO2 04/27/16 12:01 98.2 69 18 107/66 96 04/26/16 20:22 Room Air 04/26/16 01:51 4 Intake and Output 04/26/16 04/26/16 04/27/16 14:59 22:59 06:59 Intake Total 450 ml Balance 450 ml Exam Constitutional: alert, oriented, other (appears weak and sleepy) Head: atraumatic, normocephalic Eyes: EOMI, PERRL Respiratory: clear to auscultation, normal air movement Cardiovascular: nl pulses, regular rate and rhythm Gastrointestinal: non-tender, soft Extremities: normal pulses Results Result Diagram: 04/27/16 0655 04/27/16 0655 Results 24 hrs Laboratory Tests Test 04/26/16 16:30 04/26/16 23:30 04/27/16 06:55 04/27/16 10:34 Creatine Kinase 50 Creatine Kinase Index 8.3 Creatinine Kinase MB (Mass) 4.15 H Troponin I 0.420 *H Urine Amphetamines Screen NEGATIVE Urine Barbiturates NEGATIVE Urine Benzodiazepines Screen NEGATIVE Urine Bilirubin NEGATIVE Urine Cannabinoids NEGATIVE Urine Clarity CLEAR Urine Cocaine Screen NEGATIVE Urine Color LT. YELLOW Urine Glucose NEGATIVE Urine Hemoglobin TRACE Urine Ketones NEGATIVE Urine Leukocyte Esterase NEGATIVE Urine Microscopic RBC 2-5 Urine Microscopic WBC 0-2 Urine Mucus FEW Urine Nitrite NEGATIVE Urine Opiates Screen NEGATIVE Urine Specific [place] 1.010 Urine Squamous Epithelial Cells FEW Urine Total Protein NEGATIVE Urine Urobilinogen 0.2 E.U./dL Urine pH 5.5 Anion Gap 17 H Basophils # 0.0 Basophils % 0.6 Blood Morphology Comment Blood Urea Nitrogen 26 H Calcium Level 8.9 Carbon Dioxide Level 23 Chloride Level 101 Cholesterol Level 83 L Cholesterol/HDL Ratio 3.4 Creatinine 0.86 Eosinophils # 0.1 Eosinophils % 1.8 Glucose Level 92 HDL Cholesterol 24 L Hematocrit 30.6 L Hemoglobin 9.7 L LDL Cholesterol, Calculated 45 Lymphocytes # 1.0 Lymphocytes % 14.9 L Mean Corpuscular Hemoglobin 25.3 L Mean Corpuscular Hemoglobin Concent 31.6 L Mean Corpuscular Volume 80.0 L Mean Platelet Volume 8.1 Monocytes # 0.7 Monocytes % 10.2 Neutrophils # 5.1 Neutrophils % 72.5 Nucleated Red Blood Cells # 0.0 Nucleated Red Blood Cells % 0.0 Platelet Count 254 Potassium Level 4.1 Red Blood Count 3.82 L Red Cell Distribution Width 16.9 H Sodium Level 137 Triglycerides Level 71 White Blood Count 7.0 # Lactic Acid Level 3.7 H Medications Medications Current Medications Famotidine (Pepcid) 20 mg BID PO Last administered on 04/27/16 08:38; Admin Dose 20 MG; Start 04/26/16 at 09:00 Lisinopril (Zestril) 2.5 mg DAILY PO Last administered on 04/27/16 08:38; Admin Dose 2.5 MG; Start 04/26/16 at 09:00 Methimazole (Tapazole) 30 mg DAILY PO Last administered on 04/27/16 08:37; Admin Dose 30 MG; Start 04/26/16 at 18:00 Aspirin 81 mg 81 mg DAILY PO Last administered on 04/27/16 08:38; Admin Dose 81 MG; Start 04/26/16 at 09:00 Diltiazem HCl 125 ml @ 5 mls/hr TITRATE IV Last administered on 04/26/16 07: 33; Admin Dose 5 MLS/HR; Start 04/26/16 at 07:00 Ceftriaxone Sodium 50 ml @ 100 mls/hr Q24H IVPB Last administered on 08:46; Admin Dose 100 MLS/HR; Start 04/26/16 at 09:00 Azithromycin (Zithromax 500mg/ NS (Pmx)) 250 ml @ 250 mls/hr Q24H IVPB Last administered on 04/27/16 09:52; Admin Dose 250 MLS/HR; Start 04/26/16 at 08: 00 Digoxin (Digoxin) 0.25 mg DAILY@13 PO Last administered on 04/27/16at 13:08; Admin Dose 0.25 MG; Start 04/27/16 at 13:00 Ondansetron HCl (Zofran Inj) 4 mg Q4 PRN IV nausea Last administered on at 10:56; Admin Dose 4 MG; Start 04/26/16 at 11:00 Bisoprolol Fumarate 10 mg 10 mg DAILY PO Last administered on 04/27/16 13:08 ; Admin Dose 10 MG; Start 04/27/16 at 13:00 Sodium Chloride (NS) 500 ml @ 500 mls/hr Q1H ONCE IV ; Start 04/27/16 at 13:30 ; Stop 04/27/16 at 14:29; Status UNV ZARI NUNO MD Apr 27, 2016 13:16
--- NOTE | 2016-04-27 13:24 | CONS ---
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 methimazole 30 mg/d. Now that pt. is off esmolol is on bisoprolol and HR in good control. Pt. needs good guidance to get to [facility] after d/c to get radioactive iodine definitive therapy for her thyroid, regardless of etiology of thyrotoxicosis after 20 years of the disease. Qualifiers: Thyrotoxicosis type: with diffuse goiter Qualified Code: E05.00 - Thyrotoxicosis with diffuse goiter and without thyroid storm Consultation Date/Type/Reason Admit Date/Time Apr 26, 2016 at 03:59 Initial Consult Date 04/26/16 Type of Consultation: Endocrinology Reason for Consultation Thyrotoxicosis Referring Provider: JOSE PALOMINO 24 HR Interval Summary Constitutional: improved, no complaints Detailed Summary Respiratory: no complaints, No pleuritic pain, No shortness of breath Cardiovascular: no complaints, No chest pain Gastrointestinal: no complaints Genitourinary: no complaints Musculoskeletal: no complaints Neurologic: other (diffuse weakness on standing) Exam/Review of Systems Vital Signs Vitals VS - Last 72 Hours, by Label Date Time Temp Pulse Resp B/P Pulse Ox O2 Delivery O2 Flow Rate FiO2 04/27/16 12:16 80 04/27/16 12:01 98.2 69 18 107/66 96 04/27/16 08:39 77 04/27/16 07:52 97.8 65 18 122/74 94 04/27/16 04:05 78 04/27/16 03:21 97.5 87 18 117/69 95 04/27/16 01:46 36 04/27/16 00:09 97.6 110 18 122/82 96 04/27/16 00:05 122 04/26/16 23:18 167 04/26/16 21:41 102 04/26/16 21:30 97.4 82 20 128/78 98 04/26/16 20:52 99 142/76 04/26/16 20:22 139 23 129/112 95 Room Air 04/26/16 16:23 97.2 109 20 145/95 100 Room Air 04/26/16 15:12 97 21 99/65 96 Room Air 04/26/16 13:27 102 25 95/68 95 Room Air 04/26/16 11:58 97.5 104 22 124/80 99 Room Air 04/26/16 11:43 97 112/91 04/26/16 11:14 120 103/75 04/26/16 11:06 119 102/72 04/26/16 09:54 118 105/81 04/26/16 09:18 120 20 107/43 99 Room Air 04/26/16 08:21 128 121/92 04/26/16 07:52 158 111/73 04/26/16 06:50 132 23 103/90 96 Room Air 04/26/16 04:31 155 18 119/88 99 Room Air 04/26/16 01:51 98.8 125 18 126/64 97 04/26/16 01:51 Nasal Cannula 4 04/26/16 01:51 98.6 125 18 123/64 97 Nasal Cannula 4.0 Vital Signs Date Time Temp Pulse Resp B/P Pulse Ox O2 Delivery O2 Flow Rate FiO2 04/27/16 12:16 80 04/27/16 12:01 98.2 18 107/66 96 04/26/16 20:22 Room Air 04/26/16 01:51 4 Intake and Output 04/26/16 04/26/16 04/27/16 15:00 23:00 07:00 Intake Total 450 ml Balance 450 ml Exam Constitutional: alert, oriented, well developed Psych: nl mood/affect, no complaints Respiratory: clear to auscultation, normal air movement Cardiovascular: nl pulses, regular rate and rhythm, No edema, No murmurs/extra sounds, No rub Gastrointestinal: bowel sounds, nl liver, spleen, non-tender, soft, No mass, No rebound or guarding Musculoskeletal: nl extremities to inspection Extremities: normal pulses, No clubbing, No cyanosis, No edema Neurological: SPECIALIST PHYSICIAN II-XII intact, nl mental status, nl speech, nl strength Results Result Diagram: 04/27/1655 04/27/16 0655 Results 24 hrs Laboratory Tests Test 04/26/16 16:30 04/26/16 23:30 04/27/16 06:55 04/27/16 10:34 Creatine Kinase 50 Creatine Kinase Index 8.3 Creatinine Kinase MB (Mass) 4.15 H Troponin I 0.420 *H Urine Amphetamines Screen NEGATIVE Urine Barbiturates NEGATIVE Urine Benzodiazepines Screen NEGATIVE Urine Bilirubin NEGATIVE Urine Cannabinoids NEGATIVE Urine Clarity CLEAR Urine Cocaine Screen NEGATIVE Urine Color LT. YELLOW Urine Glucose NEGATIVE Urine Hemoglobin TRACE Urine Ketones NEGATIVE Urine Leukocyte Esterase NEGATIVE Urine Microscopic RBC 2-5 Urine Microscopic WBC 0-2 Urine Mucus FEW Urine Nitrite NEGATIVE Urine Opiates Screen NEGATIVE Urine Specific [place] 1.010 Urine Squamous Epithelial Cells FEW Urine Total Protein NEGATIVE Urine Urobilinogen 0.2 E.U./dL Urine pH 5.5 Anion Gap 17 H Basophils # 0.0 Basophils % 0.6 Blood Morphology Comment Blood Urea Nitrogen 26 H Calcium Level 8.9 Carbon Dioxide Level 23 Chloride Level 101 Cholesterol Level 83 L Cholesterol/HDL Ratio 3.4 Creatinine 0.86 Eosinophils # 0.1 Eosinophils % 1.8 Glucose Level 92 HDL Cholesterol 24 L Hematocrit 30.6 L Hemoglobin 9.7 L LDL Cholesterol, Calculated 45 Lymphocytes # 1.0 Lymphocytes % 14.9 L Mean Corpuscular Hemoglobin 25.3 L Mean Corpuscular Hemoglobin Concent 31.6 L Mean Corpuscular Volume 80.0 L Mean Platelet Volume 8.1 Monocytes # 0.7 Monocytes % 10.2 Neutrophils # 5.1 Neutrophils % 72.5 Nucleated Red Blood Cells # 0.0 Nucleated Red Blood Cells % 0.0 Platelet Count 254 Potassium Level 4.1 Red Blood Count 3.82 L Red Cell Distribution Width 16.9 H Sodium Level 137 Triglycerides Level 71 White Blood Count 7.0 # Lactic Acid Level 3.7 H Medications Medications Current Medications Famotidine (Pepcid) 20 mg BID PO Last administered on 04/27/16 08:38; Admin Dose 20 MG; Start 04/26/16 at 09:00 Lisinopril (Zestril) 2.5 mg DAILY PO Last administered on 04/27/16 08:38; Admin Dose 2.5 MG; Start 04/26/16 at 09:00 Methimazole (Tapazole) 30 mg DAILY PO Last administered on 04/27/16 08:37; Admin Dose 30 MG; Start 04/26/16 at 18:00 Aspirin 81 mg 81 mg DAILY PO Last administered on 04/27/16 08:38; Admin Dose 81 MG; Start 04/26/16 at 09:00 Diltiazem HCl 125 ml @ 5 mls/hr TITRATE IV Last administered on 04/26/16 07: 33; Admin Dose 5 MLS/HR; Start 04/26/16 at 07:00 Ceftriaxone Sodium 50 ml @ 100 mls/hr Q24H IVPB Last administered on 08:46; Admin Dose 100 MLS/HR; Start 04/26/16 at 09:00 Azithromycin (Zithromax 500mg/ NS (Pmx)) 250 ml @ 250 mls/hr Q24H IVPB Last administered on 04/27/16 09:52; Admin Dose 250 MLS/HR; Start 04/26/16 at 08: 00 Digoxin (Digoxin) 0.25 mg DAILY@13 PO Last administered on 04/27/16 13:08; Admin Dose 0.25 MG; Start 04/27/16 at 13:00 Ondansetron HCl (Zofran Inj) 4 mg Q4 PRN IV nausea Last administered on at 10:56; Admin Dose 4 MG; Start 04/26/16 at 11:00 Bisoprolol Fumarate 10 mg 10 mg DAILY PO Last administered on 04/27/16 13:08 ; Admin Dose 10 MG; Start 04/27/16 at 13:00 Sodium Chloride (NS) 500 ml @ 500 mls/hr Q1H ONCE IV ; Start 04/27/16 at 13:30 ; Stop 04/27/16 at 14:29 VIRI ROSALES MD Apr 27, 2016 13:24
[2016-04-27] MEDS ORDERED: SOD CHLORIDE 0.9% 500 ML IV ONE (13:30)
[2016-04-27] MEDS: RIVAROXABAN 20 MG TABLET PO SCH (17:16)
[2016-04-27] MEDS: ACETAMINOPHEN 325 MG TAB PO PRN (17:28)
[2016-04-28] VITALS (12 sets, daily range): BP systolic 119–135; BP diastolic 63–83; PULSE 76–101; RESP 18–22
[2016-04-28] MEDS: DIPHENOXYLATE/ATROPINE TAB PO PRN (00:13)
[2016-04-28] MEDS: FUROSEMIDE 40 MG INJ IV SCH ×2 (05:46→17:54)
[2016-04-28 06:48] LABS: EOSINOPHILS # 0.2 10^3/ul (0.0-0.5); EOSINOPHILS % 3.1 % (0.0-7.0); HEMATOCRIT 28.9 % (37.0-47.0); HEMOGLOBIN 9.3 g/dl (12.0-16.0); LYMPHOCYTES # 0.7 10^3/ul (0.8-2.9); LYMPHOCYTES % 12.3 % (15.0-51.0); MEAN CORPUSCULAR HEMOGLOBIN 25.6 pg (29.0-33.0); MEAN CORPUSCULAR VOLUME 80.1 fl (82.0-101.0); MEAN PLATELET VOLUME 8.1 fl (7.4-10.4); MONOCYTE # 0.4 10^3/ul (0.3-0.9); MONOCYTES % 7.1 % (0.0-11.0); NEUTROPHIL # 4.5 10^3/ul (1.6-7.5); NEUTROPHILS % 77.5 % (39.0-77.0); PLATELET COUNT 239 10^3/UL (140-440); RED BLOOD COUNT 3.61 10^6/ul (4.20-5.40); RED CELL DISTRIBUTION WIDTH 16.6 % (11.5-14.5); UNCORRECTED WBC 5.8 10^3/ul (4.8-10.8); WHITE BLOOD COUNT 5.8 10^3/ul (4.8-10.8)
[2016-04-28 06:55] LABS: POTASSIUM 3.6 mmol/L (3.5-5.1)
[2016-04-28 06:57] LABS: CREATININE 0.99 mg/dl (0.44-1.00)
[2016-04-28 06:58] LABS: CALCIUM 8.3 mg/dl (8.4-10.2)
[2016-04-28 07:01] LABS: CONDITION 1; LH ANALYZER COMMENTS 1
[2016-04-28] MEDS: AZITHROMYCIN 500MG/NS (PMX) 250 ML IVPB SCH (08:43)
[2016-04-28] MEDS: FAMOTIDINE 20 MG TAB PO SCH ×2 (08:44→21:29)
[2016-04-28] MEDS: METHIMAZOLE 5 MG TAB PO SCH (08:44)
[2016-04-28] MEDS: LISINOPRIL 5 MG TAB PO SCH (08:44)
[2016-04-28] MEDS: ASPIRIN (EC) 81 MG TAB PO SCH (08:44)
[2016-04-28] MEDS: BISOPROLOL 5 MG TAB PO SCH (08:45)
[2016-04-28] MEDS: CEFTRIAXONE 1 GM/50 ML (PMX) 50 ML IVPB SCH (08:45)
[2016-04-28] MEDS: ACETAMINOPHEN 325 MG TAB PO PRN (08:49)
[2016-04-28] MEDS ORDERED: POTASSIUM CHLORIDE 20 MEQ POWDER FOR ORAL SOLN PO ONE (09:00)
--- NOTE | 2016-04-28 09:09 | CONS ---
Date/Time of Note Date/Time of Note DATE: 04/28/16 TIME: 09:06 Assessment/Plan Assessment/Plan Chief Complaint/Hosp Course Acute on chronic systolic/diastolic heart failure: The patient is decompensated currently. Her EF is ~30-35%. Unclear what the trigger was but possibly thyrotoxicosis leading to afib with RVR leading to CHF. Improving but still volume overloaded Afib with RVR: Secondary to thyrotoxicosis but exacerbating and exacerbated by heart failure. 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 EF 30-35%. As she is asymptomatic , at this time further ischemic evaluation may be difficult as she has multiple admissions due to noncompliance and if she would need a stent, this would make the situation more difficult. Once she has established outpt follow up she certainly needs ischemic eval. Cardiomyopathy: EF 35%. Most likely nonischemic but needs ischemic eval at some point Hyperthyroidism -continue lasix 40mg IV BID -continue digoxin, check level today -decrease bisoprolol to 5mg daily (already received 10mg this am) Problems: Consultation Date/Type/Reason Admit Date/Time Apr 26, 2016 at 03:59 Initial Consult Date 04/26/16 Type of Consultation: Endocrinology Referring Provider: JOSE PALOMINO 24 HR Interval Summary Free Text/Dictation Doing much better. HR controlled. Had radha down to 30s while sleeping this am. Exam/Review of Systems Vital Signs Vitals Vital Signs Date Time Temp Pulse Resp B/P Pulse Ox O2 Delivery O2 Flow Rate FiO2 04/28/16 08:27 88 04/28/16 07:54 99.5 18 124/83 96 04/26/16 20:22 Room Air 04/26/16 01:51 4 Intake and Output 04/27/16 04/27/16 04/28/16 15:00 23:00 07:00 Intake Total 1450 ml 650 ml Balance 1450 ml 650 ml Exam Constitutional: alert, oriented Psych: no complaints Head: atraumatic, normocephalic Neck: jvd (8cm) Respiratory: crackles/rales, No clear to auscultation Cardiovascular: No regular rate and rhythm Gastrointestinal: non-tender, soft Neurological: nl mental status, nl speech Results Result Diagram: 04/28/16 0536 04/28/16529 Results 24 hrs Laboratory Tests Test 04/27/16 10:34 04/27/16 18:08 04/28/16 05:30 04/28/16 05:36 Lactic Acid Level 3.7 H 3.5 H Anion Gap 16 Blood Urea Nitrogen 22 H Calcium Level 8.3 L Carbon Dioxide Level 26 Chloride Level 101 Creatinine 0.99 Glucose Level 113 Potassium Level 3.6 Sodium Level 139 Basophils # 0.0 Basophils % 0.0 Blood Morphology Comment Eosinophils # 0.2 Eosinophils % 3.1 Hematocrit 28.9 L Hemoglobin 9.3 L Lymphocytes # 0.7 L Lymphocytes % 12.3 L Mean Corpuscular Hemoglobin 25.6 L Mean Corpuscular Hemoglobin Concent 32.0 Mean Corpuscular Volume 80.1 L Mean Platelet Volume 8.1 Monocytes # 0.4 Monocytes % 7.1 Neutrophils # 4.5 Neutrophils % 77.5 H Nucleated Red Blood Cells # 0.0 Nucleated Red Blood Cells % 0.0 Platelet Count 239 Red Blood Count 3.61 L Red Cell Distribution Width 16.6 H White Blood Count 5.8 Medications Medications Current Medications Famotidine (Pepcid) 20 mg BID PO Last administered on 04/28/16 08:44; Admin Dose 20 MG; Start 04/26/16 at 09:00 Lisinopril (Zestril) 2.5 mg DAILY PO Last administered on 04/28/16 08:44; Admin Dose 2.5 MG; Start 04/26/16 at 09:00 Methimazole (Tapazole) 30 mg DAILY PO Last administered on 04/28/16 08:44; Admin Dose 30 MG; Start 04/26/16 at 18:00 Aspirin 81 mg 81 mg DAILY PO Last administered on 04/28/16 08:44; Admin Dose 81 MG; Start 04/26/16 at 09:00 Diltiazem HCl 125 ml @ 5 mls/hr TITRATE IV Last administered on 04/26/16 07: 33; Admin Dose 5 MLS/HR; Start 04/26/16 at 07:00 Ceftriaxone Sodium 50 ml @ 100 mls/hr Q24H IVPB Last administered on 08:45; Admin Dose 100 MLS/HR; Start 04/26/16 at 09:00 Azithromycin (Zithromax 500mg/ NS (Pmx)) 250 ml @ 250 mls/hr Q24H IVPB Last administered on 04/28/16 08:43; Admin Dose 250 MLS/HR; Start 04/26/16 at 08: 00 Digoxin (Digoxin) 0.25 mg DAILY@13 PO Last administered on 04/27/16 13:08; Admin Dose 0.25 MG; Start 04/27/16 at 13:00 Ondansetron HCl (Zofran Inj) 4 mg Q4 PRN IV nausea Last administered on 10:56; Admin Dose 4 MG; Start 04/26/16 at 11:00 Bisoprolol Fumarate (Zebeta) 10 mg DAILY PO Last administered on 04/28/16 08: 45; Admin Dose 10 MG; Start 04/27/16 at 13:00 Acetaminophen (Tylenol Tab) 650 mg Q6H PRN PO PAIN AND OR ELEVATED TEMP Last administered on 04/28/16 08:49; Admin Dose 650 MG; Start 04/27/16 at 17:30 Diphenoxylate HCl/ Atropine (Lomotil) 2 tab Q6H PRN PO DIARRHEA Last administered on 04/28/16 00:13; Admin Dose 2 TAB; Start 04/27/16 at 23:30 Potassium Chloride (Potassium Chloride Pwd/Soln) 40 meq ONCE ONCE PO Last administered on 04/28/16 08:53; Admin Dose 40 MEQ; Start 04/28/16 at 09:00; Stop 04/28/16 at 09:01 JELLY COOK Apr 28, 2016 09:09
[2016-04-28] MEDS: ONDANSETRON 4 MG INJ IV PRN (09:29)
[2016-04-28] MEDS: METOCLOPRAMIDE 10 MG INJ IV PRN (10:12)
[2016-04-28] MEDS: LORAZEPAM 2 MG INJ IV PRN (10:12)
[2016-04-28] MEDS ORDERED: ONDANSETRON INJ 8 MG in DEXTROSE 5% 50 ML IV PRN (10:30)
--- NOTE | 2016-04-28 11:37 | PN ---
Date/Time of Note Date/Time of Note DATE: 04/28/16 TIME: 11:36 Assessment/Plan VTE Prophylaxis VTE Prophylaxis Intervention: SCD's Lines/Catheters IV Catheter Type (from Nrs): Saline Lock Assessment/Plan Assessment/Plan IMPRESSION 1. Atrial fibrillation with rapid ventricular response, likely secondary to #3. 2. Non-ST elevation myocardial infarction 3. Hypothyroidism with thyrotoxicosis thought to be secondary to underlying Graves' disease with probable noncompliance with therapy. 4. Cardiomyopathy with last known ejection fraction of 35%, drug induced versus ischemic. 5. Congestive heart failure exacerbation. It is an acute variable systolic congestive heart failure exacerbation. 6. Acute community-acquired pneumonia with probable early sepsis and lactic acidosis with tachycardia and lactic acidosis. 7. Hx of Polysubstance abuse to include meth, heroin as well as alcohol. PLAN Cont current medical mgmt. Rate is controlled. Appreciate cardiology and endocrine Cont telemetry monitoring Cont abx. will trend lactate. will give IVF bolus Subjective 24 Hr Interval Summary Free Text/Dictation pt c/o anxiety and vomiting Exam/Review of Systems Vital Signs Vitals Vital Signs Date Time Temp Pulse Resp B/P Pulse Ox O2 Delivery O2 Flow Rate FiO2 04/28/16 08:27 88 04/28/16 07:54 99.5 18 124/83 96 04/26/16 20:22 Room Air 04/26/16 01:51 4 Intake and Output 04/27/16 04/27/16 04/28/16 15:00 23:00 07:00 Intake Total 1450 ml 650 ml Balance 1450 ml 650 ml Exam Constitutional: alert, oriented, other (appears weak and sleepy) Head: atraumatic, normocephalic Eyes: EOMI, PERRL Respiratory: clear to auscultation, normal air movement Cardiovascular: nl pulses, regular rate and rhythm Gastrointestinal: non-tender, soft Extremities: normal pulses Results Result Diagram: 04/28/16 0536 04/28/16 0530 Results 24 hrs Laboratory Tests Test 04/27/16 18:08 04/28/16 05:30 04/28/16 05:36 Lactic Acid Level 3.5 H Anion Gap 16 Blood Urea Nitrogen 22 H Calcium Level 8.3 L Carbon Dioxide Level 26 Chloride Level 101 Creatinine 0.99 Glucose Level 113 Potassium Level 3.6 Sodium Level 139 Basophils # 0.0 Basophils % 0.0 Blood Morphology Comment Eosinophils # 0.2 Eosinophils % 3.1 Hematocrit 28.9 L Hemoglobin 9.3 L Lymphocytes # 0.7 L Lymphocytes % 12.3 L Mean Corpuscular Hemoglobin 25.6 L Mean Corpuscular Hemoglobin Concent 32.0 Mean Corpuscular Volume 80.1 L Mean Platelet Volume 8.1 Monocytes # 0.4 Monocytes % 7.1 Neutrophils # 4.5 Neutrophils % 77.5 H Nucleated Red Blood Cells # 0.0 Nucleated Red Blood Cells % 0.0 Platelet Count 239 Red Blood Count 3.61 L Red Cell Distribution Width 16.6 H White Blood Count 5.8 Medications Medications Current Medications Famotidine (Pepcid) 20 mg BID PO Last administered on 04/28/16 08:44; Admin Dose 20 MG; Start 04/26/16 at 09:00 Lisinopril (Zestril) 2.5 mg DAILY PO Last administered on 04/28/16 08:44; Admin Dose 2.5 MG; Start 04/26/16 at 09:00 Methimazole (Tapazole) 30 mg DAILY PO Last administered on 04/28/16 08:44; Admin Dose 30 MG; Start 04/26/16 at 18:00 Aspirin 81 mg 81 mg DAILY PO Last administered on 04/28/16 08:44; Admin Dose 81 MG; Start 04/26/16 at 09:00 Diltiazem HCl 125 ml @ 5 mls/hr TITRATE IV Last administered on 04/26/16 07: 33; Admin Dose 5 MLS/HR; Start 04/26/16 at 07:00 Ceftriaxone Sodium 50 ml @ 100 mls/hr Q24H IVPB Last administered on 08:45; Admin Dose 100 MLS/HR; Start 04/26/16 at 09:00 Azithromycin (Zithromax 500mg/ NS (Pmx)) 250 ml @ 250 mls/hr Q24H IVPB Last administered on 04/28/16 08:43; Admin Dose 250 MLS/HR; Start 04/26/16 at 08: 00 Digoxin (Digoxin) 0.25 mg DAILY@13 PO Last administered on 04/27/16 13:08; Admin Dose 0.25 MG; Start 04/27/16 at 13:00 Acetaminophen (Tylenol Tab) 650 mg Q6H PRN PO PAIN AND OR ELEVATED TEMP Last administered on 04/28/16 08:49; Admin Dose 650 MG; Start 04/27/16 at 17:30 Diphenoxylate HCl/ Atropine (Lomotil) 2 tab Q6H PRN PO DIARRHEA Last administered on 04/28/16 00:13; Admin Dose 2 TAB; Start 04/27/16 at 23:30 Bisoprolol Fumarate 5 mg 5 mg DAILY PO ; Start 04/29/16 at 09:00 Ondansetron HCl/ Dextrose (Zofran Inj/D5W) 54 ml @ 108 mls/hr Q6H PRN IV NAUSEA AND/OR VOMITING; Start 04/28/16 at 10:30 Metoclopramide HCl (Reglan) 10 mg Q6H PRN IV N/V Last administered on 10:12; Admin Dose 10 MG; Start 04/28/16 at 10:30 Lorazepam (Ativan) 1 mg Q3H PRN IV anxiety Last administered on 04/28/16 10: 12; Admin Dose 1 MG; Start 04/28/16 at 10:30 ZARI NUNO MD Apr 28, 2016 11:37
--- NOTE | 2016-04-28 12:41 | CONS ---
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 w/ controlled heart rate w/ beta blockade. Cont. methimazole 30 mg daily. Will need radioactive iodine ablation at [facility] [place] as soon as she is discharged. Qualifiers: Thyrotoxicosis type: with diffuse goiter Qualified Code: E05.00 - Thyrotoxicosis with diffuse goiter and without thyroid storm Consultation Date/Type/Reason Admit Date/Time Apr 26, 2016 at 03:59 Initial Consult Date 04/26/16 Type of Consultation: Endocrinology Reason for Consultation Thyrotoxicosis Referring Provider: JOSE PALOMINO 24 HR Interval Summary Subjective hx not possible: pt non-verbal (sleeping) Exam/Review of Systems Vital Signs Vitals VS - Last 72 Hours, by Label Date Time Temp Pulse Resp B/P Pulse Ox O2 Delivery O2 Flow Rate FiO2 04/28/16 12:23 80 04/28/16 11:54 98.4 79 18 135/63 94 04/28/16 08:27 88 04/28/16 07:54 99.5 104 18 124/83 96 04/28/16 04:19 76 04/28/16 04:00 97.6 86 22 132/66 97 04/28/16 00:54 77 04/28/16 00:00 98.1 71 22 134/68 98 04/27/16 20:11 87 04/27/16 19:37 97.4 76 18 111/62 95 04/27/16 16:29 84 04/27/16 15:46 96.3 82 20 116/77 93 04/27/16 12:16 80 04/27/16 12:01 98.2 69 18 107/66 96 04/27/16 08:39 77 04/27/16 07:52 97.8 65 18 122/74 94 04/27/16 04:05 78 04/27/16 03:21 97.5 87 18 117/69 95 04/27/16 01:46 36 04/27/16 00:09 97.6 110 18 122/82 96 04/27/16 00:05 122 04/26/16 23:18 167 04/26/16 21:41 102 04/26/16 21:30 97.4 82 20 128/78 98 04/26/16 20:52 99 142/76 04/26/16 20:22 139 23 129/112 95 Room Air 04/26/16 16:23 97.2 109 20 145/95 100 Room Air 04/26/16 15:12 97 21 99/65 96 Room Air 04/26/16 13:27 102 25 95/68 95 Room Air 04/26/16 11:58 97.5 104 22 124/80 99 Room Air 04/26/16 11:43 97 112/91 04/26/16 11:14 120 103/75 04/26/16 11:06 119 102/72 04/26/16 09:54 118 105/81 04/26/16 09:18 120 20 107/43 99 Room Air 04/26/16 08:21 128 121/92 04/26/16 07:52 158 111/73 04/26/16 06:50 132 23 103/90 96 Room Air 04/26/16 04:31 155 18 119/88 99 Room Air 04/26/16 01:51 98.8 125 18 126/64 97 04/26/16 01:51 Nasal Cannula 4 04/26/16 01:51 98.6 125 18 123/64 97 Nasal Cannula 4.0 Vital Signs Date Time Temp Pulse Resp B/P Pulse Ox O2 Delivery O2 Flow Rate FiO2 04/28/16 12:23 80 04/28/16 11:54 98.4 18 135/63 94 04/26/16 20:22 Room Air 04/26/16 01:51 4 Intake and Output 04/27/16 04/27/16 04/28/16 15:00 23:00 07:00 Intake Total 1450 ml 650 ml Balance 1450 ml 650 ml Exam Constitutional: No alert (sleeping) Respiratory: clear to auscultation, normal air movement Cardiovascular: nl pulses, regular rate and rhythm, No edema, No murmurs/extra sounds, No rub Gastrointestinal: bowel sounds, nl liver, spleen, non-tender, soft, No mass, No rebound or guarding Musculoskeletal: nl extremities to inspection Extremities: normal pulses Neurological: FIRESETTER II-XII intact Results Result Diagram: 04/28/16 0536 04/28/16 0530 Results 24 hrs Laboratory Tests Test 04/27/16 18:08 04/28/16 05:30 04/28/16 05:36 Lactic Acid Level 3.5 H Anion Gap 16 Blood Urea Nitrogen 22 H Calcium Level 8.3 L Carbon Dioxide Level 26 Chloride Level 101 Creatinine 0.99 Glucose Level 113 Potassium Level 3.6 Sodium Level 139 Basophils # 0.0 Basophils % 0.0 Blood Morphology Comment Eosinophils # 0.2 Eosinophils % 3.1 Hematocrit 28.9 L Hemoglobin 9.3 L Lymphocytes # 0.7 L Lymphocytes % 12.3 L Mean Corpuscular Hemoglobin 25.6 L Mean Corpuscular Hemoglobin Concent 32.0 Mean Corpuscular Volume 80.1 L Mean Platelet Volume 8.1 Monocytes # 0.4 Monocytes % 7.1 Neutrophils # 4.5 Neutrophils % 77.5 H Nucleated Red Blood Cells # 0.0 Nucleated Red Blood Cells % 0.0 Platelet Count 239 Red Blood Count 3.61 L Red Cell Distribution Width 16.6 H White Blood Count 5.8 Medications Medications Current Medications Famotidine (Pepcid) 20 mg BID PO Last administered on 04/28/16 08:44; Admin Dose 20 MG; Start 04/26/16 at 09:00 Lisinopril (Zestril) 2.5 mg DAILY PO Last administered on 04/28/16 08:44; Admin Dose 2.5 MG; Start 04/26/16 at 09:00 Methimazole (Tapazole) 30 mg DAILY PO Last administered on 04/28/16 08:44; Admin Dose 30 MG; Start 04/26/16 at 18:00 Aspirin 81 mg 81 mg DAILY PO Last administered on 04/28/16 08:44; Admin Dose 81 MG; Start 04/26/16 at 09:00 Diltiazem HCl 125 ml @ 5 mls/hr TITRATE IV Last administered on 04/26/16 07: 33; Admin Dose 5 MLS/HR; Start 04/26/16 at 07:00 Ceftriaxone Sodium 50 ml @ 100 mls/hr Q24H IVPB Last administered on 08:45; Admin Dose 100 MLS/HR; Start 04/26/16 at 09:00 Azithromycin (Zithromax 500mg/ NS (Pmx)) 250 ml @ 250 mls/hr Q24H IVPB Last administered on 12/30/16at 08:43; Admin Dose 250 MLS/HR; Start 04/26/16 at 08: 00 Digoxin (Digoxin) 0.25 mg DAILY@13 PO Last administered on 04/27/16at 13:08; Admin Dose 0.25 MG; Start 04/27/16 at 13:00 Acetaminophen (Tylenol Tab) 650 mg Q6H PRN PO PAIN AND OR ELEVATED TEMP Last administered on 04/28/16at 08:49; Admin Dose 650 MG; Start 04/27/16 at 17:30 Diphenoxylate HCl/ Atropine (Lomotil) 2 tab Q6H PRN PO DIARRHEA Last administered on 04/28/16at 00:13; Admin Dose 2 TAB; Start 04/27/16 at 23:30 Bisoprolol Fumarate 5 mg 5 mg DAILY PO ; Start 04/29/16 at 09:00 Ondansetron HCl/ Dextrose (Zofran Inj/D5W) 54 ml @ 108 mls/hr Q6H PRN IV NAUSEA AND/OR VOMITING; Start 04/28/16 at 10:30 Metoclopramide HCl (Reglan) 10 mg Q6H PRN IV N/V Last administered on at 10:12; Admin Dose 10 MG; Start 04/28/16 at 10:30 Lorazepam (Ativan) 1 mg Q3H PRN IV anxiety Last administered on 04/28/16at 10: 12; Admin Dose 1 MG; Start 04/28/16 at 10:30 VIRI ROSALES MD Apr 28, 2016 12:41
[2016-04-28] MEDS: DIGOXIN 0.25 MG TAB PO SCH (13:01)
[2016-04-28] MEDS: RIVAROXABAN 20 MG TABLET PO SCH (17:54)
[2016-04-29] VITALS (12 sets, daily range): BP systolic 104–127; BP diastolic 58–70; PULSE 100–121; RESP 18–20
[2016-04-29] MEDS: FUROSEMIDE 40 MG INJ IV SCH ×2 (06:06→18:23)
[2016-04-29 07:16] LABS: BASOPHIL # 0.1 10^3/ul (0.0-0.1); BASOPHILS % 0.8 % (0.0-2.0); EOSINOPHILS # 0.2 10^3/ul (0.0-0.5); EOSINOPHILS % 3.5 % (0.0-7.0); HEMATOCRIT 29.7 % (37.0-47.0); HEMOGLOBIN 9.4 g/dl (12.0-16.0); LYMPHOCYTES # 1.2 10^3/ul (0.8-2.9); LYMPHOCYTES % 18.9 % (15.0-51.0); MEAN CORPUSCULAR HEMOGLOBIN 25.3 pg (29.0-33.0); MEAN CORPUSCULAR HGB CONC 31.7 g/dl (32.0-37.0); MEAN CORPUSCULAR VOLUME 79.8 fl (82.0-101.0); MONOCYTE # 0.7 10^3/ul (0.3-0.9); MONOCYTES % 11.7 % (0.0-11.0); NEUTROPHIL # 4.1 10^3/ul (1.6-7.5); NEUTROPHILS % 65.1 % (39.0-77.0); PLATELET COUNT 258 10^3/UL (140-440); RED BLOOD COUNT 3.72 10^6/ul (4.20-5.40); RED CELL DISTRIBUTION WIDTH 16.8 % (11.5-14.5); UNCORRECTED WBC 6.3 10^3/ul (4.8-10.8); WHITE BLOOD COUNT 6.3 10^3/ul (4.8-10.8)
[2016-04-29 07:17] LABS: CONDITION 1; LH ANALYZER COMMENTS 1
[2016-04-29 07:25] LABS: POTASSIUM 3.6 mmol/L (3.5-5.1)
[2016-04-29 07:28] LABS: CREATININE 0.76 mg/dl (0.44-1.00)
[2016-04-29 07:29] LABS: CALCIUM 8.6 mg/dl (8.4-10.2)
--- NOTE | 2016-04-29 07:33 | CONS ---
Date/Time of Note Date/Time of Note DATE: 04/29/16 TIME: 07:30 Assessment/Plan Assessment/Plan Problems: (1) Homelessness Status: Acute Comment: Will need to have social work involved. 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 Due to the severity of this and due to the positive troponins I am going to give a dose of PTU to rapidly try and correct the hyperthyroidism this is a treatment for storm this patient is not in storm however she is a special circumstance Qualifiers: Thyrotoxicosis type: with diffuse goiter Qualified Code: E05.00 - Thyrotoxicosis with diffuse goiter and without thyroid storm Consultation Date/Type/Reason Admit Date/Time Apr 26, 2016 at 03:59 Initial Consult Date 04/26/16 Type of Consultation: Endocrinology Reason for Consultation Hyperthyroidism Referring Provider: JOSE PALOMINO 24 HR Interval Summary Free Text/Dictation Patient reports that she had been off of her medication for at least 8 months at her first dose yesterday. Constitutional: other (Complains of constantly hungry) Detailed Summary Respiratory: no complaints Cardiovascular: palpitations Gastrointestinal: no complaints Genitourinary: no complaints Exam/Review of Systems Vital Signs Vitals Vital Signs Date Time Temp Pulse Resp B/P Pulse Ox O2 Delivery O2 Flow Rate FiO2 04/29/16 07:07 98.8 90 20 107/58 95 04/26/16 20:22 Room Air 04/26/16 01:51 4 Intake and Output 04/28/16 04/28/16 04/29/16 15:00 23:00 07:00 Intake Total 800 ml 300 ml Balance 800 ml 300 ml Exam Obviously hyperthyroid female lying in bed Constitutional: alert, oriented Neck: non-tender, supple, thyromegaly Respiratory: clear to auscultation, normal air movement Cardiovascular: irregular rhythm, nl pulses Gastrointestinal: nl liver, spleen, non-tender, soft Results Result Diagram: 04/29/16 0540 04/28/16 0530 Results 24 hrs Laboratory Tests Test 04/28/16 13:05 04/29/16 05:40 Digoxin Level 0.9 L Basophils # 0.1 Basophils % 0.8 Blood Morphology Comment Eosinophils # 0.2 Eosinophils % 3.5 Hematocrit 29.7 L Hemoglobin 9.4 L Lymphocytes # 1.2 Lymphocytes % 18.9 Mean Corpuscular Hemoglobin 25.3 L Mean Corpuscular Hemoglobin Concent 31.7 L Mean Corpuscular Volume 79.8 L Mean Platelet Volume 8.0 Monocytes # 0.7 Monocytes % 11.7 H Neutrophils # 4.1 Neutrophils % 65.1 Nucleated Red Blood Cells # 0.0 Nucleated Red Blood Cells % 0.0 Platelet Count 258 Red Blood Count 3.72 L Red Cell Distribution Width 16.8 H White Blood Count 6.3 Medications Medications Current Medications Famotidine (Pepcid) 20 mg BID PO Last administered on 04/28/16 21:29; Admin Dose 20 MG; Start 04/26/16 at 09:00 Lisinopril (Zestril) 2.5 mg DAILY PO Last administered on 04/28/16 08:44; Admin Dose 2.5 MG; Start 04/26/16 at 09:00 Methimazole (Tapazole) 30 mg DAILY PO Last administered on 04/28/16 08:44; Admin Dose 30 MG; Start 04/26/16 at 18:00 Aspirin 81 mg 81 mg DAILY PO Last administered on 04/28/16 08:44; Admin Dose 81 MG; Start 04/26/16 at 09:00 Diltiazem HCl 125 ml @ 5 mls/hr TITRATE IV Last administered on 04/26/16 07: 33; Admin Dose 5 MLS/HR; Start 04/26/16 at 07:00 Ceftriaxone Sodium 50 ml @ 100 mls/hr Q24H IVPB Last administered on 08:45; Admin Dose 100 MLS/HR; Start 04/26/16 at 09:00 Azithromycin (Zithromax 500mg/ NS (Pmx)) 250 ml @ 250 mls/hr Q24H IVPB Last administered on 04/28/16 08:43; Admin Dose 250 MLS/HR; Start 04/26/16 at 08: 00 Digoxin (Digoxin) 0.25 mg DAILY@13 PO Last administered on 04/28/16 13:01; Admin Dose 0.25 MG; Start 04/27/16 at 13:00 Acetaminophen (Tylenol Tab) 650 mg Q6H PRN PO PAIN AND OR ELEVATED TEMP Last administered on 04/28/16at 08:49; Admin Dose 650 MG; Start 04/27/16 at 17:30 Diphenoxylate HCl/ Atropine (Lomotil) 2 tab Q6H PRN PO DIARRHEA Last administered on 04/28/16at 00:13; Admin Dose 2 TAB; Start 04/27/16 at 23:30 Bisoprolol Fumarate 5 mg 5 mg DAILY PO ; Start 04/29/16 at 09:00 Ondansetron HCl/ Dextrose (Zofran Inj/D5W) 54 ml @ 108 mls/hr Q6H PRN IV NAUSEA AND/OR VOMITING; Start 04/28/16 at 10:30 Metoclopramide HCl (Reglan) 10 mg Q6H PRN IV N/V Last administered on at 10:12; Admin Dose 10 MG; Start 04/28/16 at 10:30 Lorazepam (Ativan) 1 mg Q3H PRN IV anxiety Last administered on 04/28/16at 10: 12; Admin Dose 1 MG; Start 04/28/16 at 10:30 ARIEL GHOSH MD Apr 29, 2016 07:33
[2016-04-29] MEDS ORDERED: BISOPROLOL 5 MG TAB PO SCH (09:00)
--- NOTE | 2016-04-29 10:38 | PN ---
Date/Time of Note Date/Time of Note DATE: 04/29/16 TIME: 10:33 Assessment/Plan VTE Prophylaxis VTE Prophylaxis Intervention: SCD's Lines/Catheters IV Catheter Type (from Nrs): Saline Lock Assessment/Plan Assessment/Plan IMPRESSION 1. Atrial fibrillation with rapid ventricular response, likely secondary to #3. 2. Non-ST elevation myocardial infarction 3. Hypothyroidism with thyrotoxicosis thought to be secondary to underlying Graves' disease with probable noncompliance with therapy. 4. Cardiomyopathy with last known ejection fraction of 35%, drug induced versus ischemic. 5. Congestive heart failure exacerbation. It is an acute variable systolic congestive heart failure exacerbation. 6. Acute community-acquired pneumonia with probable early sepsis and lactic acidosis with tachycardia and lactic acidosis. 7. Hx of Polysubstance abuse to include meth, heroin as well as alcohol. 8. Normocytic Anemia, likely 2/2 chronic disease PLAN Cont current medical mgmt. Rate currently is not controlled, she has been upto 120s. Appreciate cardiology and endocrine pt will need Radioactive Iodine ablation therapy at [facility] upon discharge. front desk worker is on board to also address possible homelessness Cont telemetry monitoring Cont abx. will trend lactate. will give IVF bolus Subjective 24 Hr Interval Summary Free Text/Dictation sleepy, but arousable. at times, she appears anxious Exam/Review of Systems Vital Signs Vitals Vital Signs Date Time Temp Pulse Resp B/P Pulse Ox O2 Delivery O2 Flow Rate FiO2 04/29/16 08:04 103 04/29/16 07:07 98.8 20 107/58 95 04/26/16 20:22 Room Air 04/26/16 01:51 4 Intake and Output 04/28/16 04/28/16 04/29/16 15:00 23:00 07:00 Intake Total 800 ml 300 ml Balance 800 ml 300 ml Exam Constitutional: sleepy, but arousable. at times, she appears anxious Head: atraumatic, normocephalic Eyes: EOMI, PERRL Respiratory: clear to auscultation, normal air movement Cardiovascular: nl pulses, regular rate and rhythm Gastrointestinal: non-tender, soft Extremities: normal pulses Results Result Diagram: 04/29/16 0540 04/29/16 0540 Results 24 hrs Laboratory Tests Test 04/28/16 13:05 04/29/16 05:40 Digoxin Level 0.9 L Anion Gap 16 Basophils # 0.1 Basophils % 0.8 Blood Morphology Comment Blood Urea Nitrogen 20 Calcium Level 8.6 Carbon Dioxide Level 27 Chloride Level 101 Creatinine 0.76 Eosinophils # 0.2 Eosinophils % 3.5 Glucose Level 90 Hematocrit 29.7 L Hemoglobin 9.4 L Lymphocytes # 1.2 Lymphocytes % 18.9 Mean Corpuscular Hemoglobin 25.3 L Mean Corpuscular Hemoglobin Concent 31.7 L Mean Corpuscular Volume 79.8 L Mean Platelet Volume 8.0 Monocytes # 0.7 Monocytes % 11.7 H Neutrophils # 4.1 Neutrophils % 65.1 Nucleated Red Blood Cells # 0.0 Nucleated Red Blood Cells % 0.0 Platelet Count 258 Potassium Level 3.6 Red Blood Count 3.72 L Red Cell Distribution Width 16.8 H Sodium Level 140 White Blood Count 6.3 Medications Medications Current Medications Famotidine (Pepcid) 20 mg BID PO Last administered on 04/28/16 21:29; Admin Dose 20 MG; Start 04/26/16 at 09:00 Lisinopril (Zestril) 2.5 mg DAILY PO Last administered on 04/28/16 08:44; Admin Dose 2.5 MG; Start 04/26/16 at 09:00 Methimazole (Tapazole) 30 mg DAILY PO Last administered on 04/28/16 08:44; Admin Dose 30 MG; Start 04/26/16 at 18:00 Aspirin 81 mg 81 mg DAILY PO Last administered on 04/28/16 08:44; Admin Dose 81 MG; Start 04/26/16 at 09:00 Diltiazem HCl 125 ml @ 5 mls/hr TITRATE IV Last administered on 04/26/16 07: 33; Admin Dose 5 MLS/HR; Start 04/26/16 at 07:00 Ceftriaxone Sodium 50 ml @ 100 mls/hr Q24H IVPB Last administered on 08:45; Admin Dose 100 MLS/HR; Start 04/26/16 at 09:00 Azithromycin (Zithromax 500mg/ NS (Pmx)) 250 ml @ 250 mls/hr Q24H IVPB Last administered on 04/28/16 08:43; Admin Dose 250 MLS/HR; Start 04/26/16 at 08: 00 Digoxin (Digoxin) 0.25 mg DAILY@13 PO Last administered on 04/28/16at 13:01; Admin Dose 0.25 MG; Start 04/27/16 at 13:00 Acetaminophen (Tylenol Tab) 650 mg Q6H PRN PO PAIN AND OR ELEVATED TEMP Last administered on 04/28/16at 08:49; Admin Dose 650 MG; Start 04/27/16 at 17:30 Diphenoxylate HCl/ Atropine (Lomotil) 2 tab Q6H PRN PO DIARRHEA Last administered on 04/28/16at 00:13; Admin Dose 2 TAB; Start 04/27/16 at 23:30 Bisoprolol Fumarate 5 mg 5 mg DAILY PO ; Start 04/29/16 at 09:00 Ondansetron HCl/ Dextrose (Zofran Inj/D5W) 54 ml @ 108 mls/hr Q6H PRN IV NAUSEA AND/OR VOMITING; Start 04/28/16 at 10:30 Metoclopramide HCl (Reglan) 10 mg Q6H PRN IV N/V Last administered on at 10:12; Admin Dose 10 MG; Start 04/28/16 at 10:30 Lorazepam (Ativan) 1 mg Q3H PRN IV anxiety Last administered on 04/28/16at 10: 12; Admin Dose 1 MG; Start 04/28/16 at 10:30 Propylthiouracil (Ptu) 200 mg TID PO ; Start 04/29/16 at 09:00; Stop 04/30/16 at 08:59 ZARI NUNO MD Apr 29, 2016 10:38
[2016-04-29] MEDS: FAMOTIDINE 20 MG TAB PO SCH ×2 (10:44→20:26)
[2016-04-29] MEDS: CEFTRIAXONE 1 GM/50 ML (PMX) 50 ML IVPB SCH (10:44)
[2016-04-29] MEDS: LISINOPRIL 5 MG TAB PO SCH (10:45)
[2016-04-29] MEDS: ASPIRIN (EC) 81 MG TAB PO SCH (10:45)
[2016-04-29] MEDS: PROPYLTHIOURACIL 50 MG TAB PO SCH ×3 (10:46→20:26)
[2016-04-29] MEDS: METHIMAZOLE 5 MG TAB PO SCH (10:46)
[2016-04-29] MEDS: AZITHROMYCIN 500MG/NS (PMX) 250 ML IVPB SCH (10:51)
[2016-04-29] MEDS ORDERED: SOD CHLORIDE 0.9% 500 ML IV ONE (11:00)
[2016-04-29] MEDS: DIGOXIN 0.25 MG TAB PO SCH (13:34)
[2016-04-29] MEDS: RIVAROXABAN 20 MG TABLET PO SCH (18:24)
[2016-04-29] MEDS ORDERED: POTASSIUM CHLORIDE 20 MEQ POWDER FOR ORAL SOLN PO ONE (19:00)
[2016-04-29] MEDS ORDERED: BISOPROLOL 5 MG TAB PO ONE (19:00)
--- NOTE | 2016-04-29 19:00 | CONS ---
Date/Time of Note Date/Time of Note DATE: 04/29/16 TIME: 18:58 Assessment/Plan Assessment/Plan Chief Complaint/Hosp Course Acute on chronic systolic/diastolic heart failure: The patient is decompensated currently. Her EF is ~30-35%. Unclear what the trigger was but possibly thyrotoxicosis leading to afib with RVR leading to CHF. Significant improvement but still volume overloaded Afib with RVR: Secondary to thyrotoxicosis but exacerbating and exacerbated by heart failure. 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 EF 30-35%. As she is asymptomatic , at this time further ischemic evaluation may be difficult as she has multiple admissions due to noncompliance and if she would need a stent, this would make the situation more difficult. Once she has established outpt follow up she certainly needs ischemic eval. Cardiomyopathy: EF 35%. Most likely nonischemic but needs ischemic eval at some point Hyperthyroidism -continue lasix 40mg IV BID -continue digoxin -increase bisoprolol back to 10mg daily (including one 5mg now) Problems: Consultation Date/Type/Reason Admit Date/Time Apr 26, 2016 at 03:59 Initial Consult Date 04/26/16 Type of Consultation: Cardiology Referring Provider: JOSE PALOMINO 24 HR Interval Summary Free Text/Dictation HR worse after decreasing bisoprolol dose. Otherwise feels better Exam/Review of Systems Vital Signs Vitals Vital Signs Date Time Temp Pulse Resp B/P Pulse Ox O2 Delivery O2 Flow Rate FiO2 04/29/16 16:13 100 04/29/16 15:31 98.2 18 104/59 100 04/26/16 20:22 Room Air 04/26/16 01:51 4 Intake and Output 04/28/16 04/28/16 04/29/16 15:00 23:00 07:00 Intake Total 800 ml 300 ml Balance 800 ml 300 ml Exam Constitutional: alert, oriented Psych: no complaints Head: atraumatic, normocephalic Neck: jvd (9cm) Respiratory: crackles/rales, No clear to auscultation Cardiovascular: No regular rate and rhythm, No systolic murmur Gastrointestinal: soft Neurological: nl mental status, nl speech Results Result Diagram: 04/29/16 0540 04/29/16 0540 Results 24 hrs Laboratory Tests Test 12/31/16 05:40 04/29/16 12:05 Anion Gap 16 Basophils # 0.1 Basophils % 0.8 Blood Morphology Comment Blood Urea Nitrogen 20 Calcium Level 8.6 Carbon Dioxide Level 27 Chloride Level 101 Creatinine 0.76 Eosinophils # 0.2 Eosinophils % 3.5 Glucose Level 90 Hematocrit 29.7 L Hemoglobin 9.4 L Lymphocytes # 1.2 Lymphocytes % 18.9 Mean Corpuscular Hemoglobin 25.3 L Mean Corpuscular Hemoglobin Concent 31.7 L Mean Corpuscular Volume 79.8 L Mean Platelet Volume 8.0 Monocytes # 0.7 Monocytes % 11.7 H Neutrophils # 4.1 Neutrophils % 65.1 Nucleated Red Blood Cells # 0.0 Nucleated Red Blood Cells % 0.0 Platelet Count 258 Potassium Level 3.6 Red Blood Count 3.72 L Red Cell Distribution Width 16.8 H Sodium Level 140 White Blood Count 6.3 Lactic Acid Level 2.3 H Medications Medications Current Medications Famotidine (Pepcid) 20 mg BID PO Last administered on 04/29/16 10:44; Admin Dose 20 MG; Start 04/26/16 at 09:00 Lisinopril (Zestril) 2.5 mg DAILY PO Last administered on 04/29/16 10:45; Admin Dose 2.5 MG; Start 04/26/16 at 09:00 Methimazole (Tapazole) 30 mg DAILY PO Last administered on 04/29/16 10:46; Admin Dose 30 MG; Start 04/26/16 at 18:00 Aspirin 81 mg 81 mg DAILY PO Last administered on 04/29/16 10:45; Admin Dose 81 MG; Start 04/26/16 at 09:00 Diltiazem HCl 125 ml @ 5 mls/hr TITRATE IV Last administered on 04/26/16 07: 33; Admin Dose 5 MLS/HR; Start 04/26/16 at 07:00 Ceftriaxone Sodium 50 ml @ 100 mls/hr Q24H IVPB Last administered on 10:44; Admin Dose 100 MLS/HR; Start 04/26/16 at 09:00 Azithromycin (Zithromax 500mg/ NS (Pmx)) 250 ml @ 250 mls/hr Q24H IVPB Last administered on 12/31/16at 10:51; Admin Dose 250 MLS/HR; Start 04/26/16 at 08: 00 Digoxin (Digoxin) 0.25 mg DAILY@13 PO Last administered on 04/29/16at 13:34; Admin Dose 0.25 MG; Start 04/27/16 at 13:00 Acetaminophen (Tylenol Tab) 650 mg Q6H PRN PO PAIN AND OR ELEVATED TEMP Last administered on 04/28/16 08:49; Admin Dose 650 MG; Start 04/27/16 at 17:30 Diphenoxylate HCl/ Atropine 2 tab 2 tab Q6H PRN PO DIARRHEA Last administered on 04/28/16 00:13; Admin Dose 2 TAB; Start 04/27/16 at 23:30 Ondansetron HCl/ Dextrose (Zofran Inj/D5W) 54 ml @ 108 mls/hr Q6H PRN IV NAUSEA AND/OR VOMITING; Start 04/28/16 at 10:30 Metoclopramide HCl (Reglan) 10 mg Q6H PRN IV N/V Last administered on at 10:12; Admin Dose 10 MG; Start 04/28/16 at 10:30 Lorazepam (Ativan) 1 mg Q3H PRN IV anxiety Last administered on 04/28/16at 10: 12; Admin Dose 1 MG; Start 04/28/16 at 10:30 Propylthiouracil (Ptu) 200 mg TID PO Last administered on 04/29/16 13:00; Admin Dose 200 MG; Start 04/29/16 at 09:00; Stop 04/30/16 at 08:59 Bisoprolol Fumarate (Zebeta) 10 mg DAILY PO ; Start 04/30/16 at 09:00 Bisoprolol Fumarate (Zebeta) 5 mg ONCE ONCE PO ; Start 04/29/16 at 19:00; Stop 04/29/16 at 19:01 Potassium Chloride (Potassium Chloride Pwd/Soln) 40 meq ONCE ONCE PO ; Start 04/29/16 at 19:00; Stop 04/29/16 at 19:01 JELLY COOK Apr 29, 2016 19:00
[2016-04-29] MEDS ORDERED: VITAMIN A & D 5 GM OINT PACKET TOP ONE (23:06)
[2016-04-29] MEDS: DIPHENOXYLATE/ATROPINE TAB PO PRN (23:15)
[2016-04-30] VITALS (13 sets, daily range): BP systolic 105–125; BP diastolic 49–62; PULSE 60–105; RESP 15–20
[2016-04-30] MEDS: DIPHENOXYLATE/ATROPINE TAB PO PRN (05:18)
[2016-04-30] MEDS: FUROSEMIDE 40 MG INJ IV SCH ×2 (05:18→17:24)
[2016-04-30 06:53] LABS: EOSINOPHILS # 0.4 10^3/ul (0.0-0.5); EOSINOPHILS % 5.2 % (0.0-7.0); HEMATOCRIT 28.7 % (37.0-47.0); HEMOGLOBIN 9.1 g/dl (12.0-16.0); LYMPHOCYTES # 2.5 10^3/ul (0.8-2.9); MEAN CORPUSCULAR HEMOGLOBIN 25.4 pg (29.0-33.0); MEAN CORPUSCULAR HGB CONC 31.9 g/dl (32.0-37.0); MEAN CORPUSCULAR VOLUME 79.7 fl (82.0-101.0); MEAN PLATELET VOLUME 7.9 fl (7.4-10.4); MONOCYTE # 0.8 10^3/ul (0.3-0.9); NEUTROPHIL # 3.3 10^3/ul (1.6-7.5); NEUTROPHILS % 47.8 % (39.0-77.0); PLATELET COUNT 264 10^3/UL (140-440); UNCORRECTED WBC 6.8 10^3/ul (4.8-10.8); WHITE BLOOD COUNT 6.8 10^3/ul (4.8-10.8)
[2016-04-30 07:12] LABS: CONDITION 1; LH ANALYZER COMMENTS 1
[2016-04-30 07:19] LABS: ALBUMIN 2.8 g/dl (3.3-4.9); POTASSIUM 5.2 mmol/L (3.5-5.1)
[2016-04-30 07:22] LABS: ALBUMIN/GLOBULIN RATIO 0.87; BILIRUBIN,INDIRECT 0.1 mg/dl (0-1.1); BILIRUBIN,TOTAL 0.1 mg/dl (0.2-1.3); CALCIUM 8.8 mg/dl (8.4-10.2); CREATININE 0.75 mg/dl (0.44-1.00)
--- NOTE | 2016-04-30 09:29 | CONS ---
Date/Time of Note Date/Time of Note DATE: 04/30/16 TIME: 09:26 Assessment/Plan Assessment/Plan Problems: (1) Thyrotoxicosis without thyroid storm Status: Chronic Comment: She is improving with treatment. She should be able to be discharged on the methimazole as soon as the other issues are stabilized. It is entirely possible that her cardiomyopathy is due to the long-term untreated hyperthyroidism which is which if it is the case would be partially reversible Qualifiers: Thyrotoxicosis type: with diffuse goiter Qualified Code: E05.00 - Thyrotoxicosis with diffuse goiter and without thyroid storm (2) Atrial fibrillation with rapid ventricular response Status: Acute Comment: Rate control is fair. I expect this will improve as we get her free T4 levels down (3) CHF (congestive heart failure) Status: Acute Comment: She is improving but probably need slightly more diuresis. Qualifiers: Congestive heart failure type: combined Congestive heart failure chronicity : acute on chronic Qualified Code: I50.43 - Acute on chronic combined systolic and diastolic congestive heart failure Consultation Date/Type/Reason Admit Date/Time Apr 26, 2016 at 03:59 Initial Consult Date 04/26/16 Type of Consultation: Endocrinology Reason for Consultation Hyperthyroid Referring Provider: JOSE PALOMINO 24 HR Interval Summary Constitutional: no complaints Detailed Summary Respiratory: no complaints (Improved) Cardiovascular: palpitations Gastrointestinal: no complaints Exam/Review of Systems Vital Signs Vitals Vital Signs Date Time Temp Pulse Resp B/P Pulse Ox O2 Delivery O2 Flow Rate FiO2 04/30/16 08:23 90 04/30/16 07:00 98.1 20 105/62 99 04/26/16 20:22 Room Air Intake and Output 04/29/16 04/29/16 04/30/16 15:00 23:00 07:00 Intake Total 1060 ml 450 ml Balance 1060 ml 450 ml Exam Constitutional: alert, oriented Respiratory: clear to auscultation, normal air movement Cardiovascular: irregular rhythm, nl pulses Gastrointestinal: nl liver, spleen, non-tender, soft Results Result Diagram: 04/30/16 0600 04/30/16 0600 Results 24 hrs Laboratory Tests Test 04/29/16 12:05 04/30/16 06:00 Lactic Acid Level 2.3 H Alanine Aminotransferase (ALT/SGPT) 35 Albumin 2.8 L Albumin/Globulin Ratio 0.87 Alkaline Phosphatase 132 H Anion Gap 14 Aspartate Amino Transf (AST/SGOT) 29 Basophils # Pending Basophils % Pending Blood Morphology Comment Blood Urea Nitrogen 27 H Calcium Level 8.8 Carbon Dioxide Level 28 Chloride Level 99 Creatinine 0.75 Direct Bilirubin 0.00 Eosinophils # Pending Eosinophils % Pending Globulin 3.20 Glucose Level 89 Hematocrit 28.7 L Hemoglobin 9.1 L Indirect Bilirubin 0.1 Lymphocytes # Pending Lymphocytes % Pending Mean Corpuscular Hemoglobin 25.4 L Mean Corpuscular Hemoglobin Concent 31.9 L Mean Corpuscular Volume 79.7 L Mean Platelet Volume 7.9 Monocytes # Pending Monocytes % Pending Neutrophils # Pending Neutrophils % Pending Nucleated Red Blood Cells # Pending Nucleated Red Blood Cells % Pending Platelet Count 264 Potassium Level 5.2 H Red Blood Count 3.60 L Red Cell Distribution Width 17.0 H Sodium Level 136 Total Bilirubin 0.1 L Total Protein 6.0 L White Blood Count 6.8 Medications Medications Current Medications Famotidine (Pepcid) 20 mg BID PO Last administered on 04/29/16 20:26; Admin Dose 20 MG; Start 04/26/16 at 09:00 Lisinopril (Zestril) 2.5 mg DAILY PO Last administered on 04/29/16 10:45; Admin Dose 2.5 MG; Start 04/26/16 at 09:00 Methimazole (Tapazole) 30 mg DAILY PO Last administered on 04/29/16 10:46; Admin Dose 30 MG; Start 04/26/16 at 18:00 Aspirin 81 mg 81 mg DAILY PO Last administered on 04/29/16 10:45; Admin Dose 81 MG; Start 04/26/16 at 09:00 Diltiazem HCl 125 ml @ 5 mls/hr TITRATE IV Last administered on 04/26/16 07: 33; Admin Dose 5 MLS/HR; Start 04/26/16 at 07:00 Ceftriaxone Sodium 50 ml @ 100 mls/hr Q24H IVPB Last administered on 10:44; Admin Dose 100 MLS/HR; Start 04/26/16 at 09:00 Azithromycin (Zithromax 500mg/ NS (Pmx)) 250 ml @ 250 mls/hr Q24H IVPB Last administered on 04/29/16 10:51; Admin Dose 250 MLS/HR; Start 04/26/16 at 08: 00 Digoxin (Digoxin) 0.25 mg DAILY@13 PO Last administered on 04/29/16 13:34; Admin Dose 0.25 MG; Start 04/27/16 at 13:00 Acetaminophen (Tylenol Tab) 650 mg Q6H PRN PO PAIN AND OR ELEVATED TEMP Last administered on 04/28/16 08:49; Admin Dose 650 MG; Start 04/27/16 at 17:30 Diphenoxylate HCl/ Atropine 2 tab 2 tab Q6H PRN PO DIARRHEA Last administered on 04/30/16t 05:18; Admin Dose 2 TAB; Start 04/27/16 at 23:30 Ondansetron HCl/ Dextrose (Zofran Inj/D5W) 54 ml @ 108 mls/hr Q6H PRN IV NAUSEA AND/OR VOMITING; Start 04/28/16 at 10:30 Metoclopramide HCl (Reglan) 10 mg Q6H PRN IV N/V Last administered on at 10:12; Admin Dose 10 MG; Start 04/28/16 at 10:30 Lorazepam (Ativan) 1 mg Q3H PRN IV anxiety Last administered on 04/28/16at 10: 12; Admin Dose 1 MG; Start 04/28/16 at 10:30 Bisoprolol Fumarate (Zebeta) 10 mg DAILY PO ; Start 04/30/16 at 09:00 ARIEL GHOSH MD Apr 30, 2016 09:28
--- NOTE | 2016-04-30 09:49 | PN ---
Date/Time of Note Date/Time of Note DATE: 04/30/16 TIME: 09:41 Assessment/Plan VTE Prophylaxis VTE Prophylaxis Intervention: other (xarelto) Lines/Catheters IV Catheter Type (from Nrsg): Saline Lock Assessment/Plan Assessment/Plan 1. Atrial fibrillation with rapid ventricular response, likely secondary to # 3. - rate controlled - continue with BB, xarelto 2. Non-ST elevation myocardial infarction - 2/2 demand ischemia - appreciate cardio recs 3. Hypothyroidism with thyrotoxicosis thought to be secondary to underlying Graves' disease with probable noncompliance with therapy - continue methimazole and PTU - appreciate endo recs 4. Cardiomyopathy with last known ejection fraction of 35%, drug induced versus ischemic - possible thyroid disorder induced 5. Congestive heart failure exacerbation. It is an acute variable systolic congestive heart failure exacerbation. - acute on chronic - I/O's - monitor changes 6. Acute community-acquired pneumonia with probable early sepsis and lactic acidosis with tachycardia and lactic acidosis. - continue with Azithro/Rocephin 7. Hx of Polysubstance abuse to include meth, heroin as well as alcohol - psychiatric social worker supervisor consult 8. Normocytic Anemia, likely 2/2 chronic disease - monitor H/H, if < 8 g/dL then transfuse 9. Destitution - psychiatric social worker supervisor for placement 10. GI ppx - pepcid 11. DVT ppx - xarelto dispo - f/u recs, psychiatric social worker supervisor consult, once cleared by consultants, discharge planning. this progress note took greater than 30 minutes to complete Subjective 24 Hr Interval Summary Free Text/Dictation Patient had no overnight events. She is depressed mood. Spoke to her about the care plan. 15 minutes spent. Exam/Review of Systems Vital Signs Vitals Vital Signs Date Time Temp Pulse Resp B/P Pulse Ox O2 Delivery O2 Flow Rate FiO2 04/30/16 08:23 90 04/30/16 07:00 98.1 20 105/62 99 04/26/16 20:22 Room Air Intake and Output 04/29/16 04/29/16 04/30/16 15:00 23:00 07:00 Intake Total 1060 ml 450 ml Balance 1060 ml 450 ml Exam Gen Huber: moderate distress 2/2 depression, AAOx4 HEENT: NC/AT, PERRLA, EOMI, no pharyngeal erythema, no tonsillar exudates, no lymphadenopathy, no JVD, no carotid bruits NECK: supple, no thyromegaly THORAX: symmetrical, no obvious deformities CV: S1S2, irregularly irregular, no M/G/R Lungs: diminished breath sounds to the bases, no overt wheezing Abd: soft, NT/ND, +BS, no rebound, no guarding, neg HSM EXT: no edema, no ecchymosis, no clubbing, FROM, varicosities Neuro: CN II-XII grossly intact, no focal deficits Psych: depressed mood and affect Skin: C/D/I Results Result Diagram: 04/30/16 0600 04/30/16 0600 Results 24 hrs Laboratory Tests Test 04/29/16 12:05 04/30/16 06:00 Lactic Acid Level 2.3 H Alanine Aminotransferase (ALT/SGPT) 35 Albumin 2.8 L Albumin/Globulin Ratio 0.87 Alkaline Phosphatase 132 H Anion Gap 14 Aspartate Amino Transf (AST/SGOT) 29 Basophils # Pending Basophils % Pending Blood Morphology Comment Blood Urea Nitrogen 27 H Calcium Level 8.8 Carbon Dioxide Level 28 Chloride Level 99 Creatinine 0.75 Direct Bilirubin 0.00 Eosinophils # Pending Eosinophils % Pending Globulin 3.20 Glucose Level 89 Hematocrit 28.7 L Hemoglobin 9.1 L Indirect Bilirubin 0.1 Lymphocytes # Pending Lymphocytes % Pending Mean Corpuscular Hemoglobin 25.4 L Mean Corpuscular Hemoglobin Concent 31.9 L Mean Corpuscular Volume 79.7 L Mean Platelet Volume 7.9 Monocytes # Pending Monocytes % Pending Neutrophils # Pending Neutrophils % Pending Nucleated Red Blood Cells # Pending Nucleated Red Blood Cells % Pending Platelet Count 264 Potassium Level 5.2 H Red Blood Count 3.60 L Red Cell Distribution Width 17.0 H Sodium Level 136 Total Bilirubin 0.1 L Total Protein 6.0 L White Blood Count 6.8 Medications Medications Current Medications Famotidine (Pepcid) 20 mg BID PO Last administered on 04/29/16at 20:26; Admin Dose 20 MG; Start 04/26/16 at 09:00 Lisinopril (Zestril) 2.5 mg DAILY PO Last administered on 04/29/16at 10:45; Admin Dose 2.5 MG; Start 04/26/16 at 09:00 Methimazole (Tapazole) 30 mg DAILY PO Last administered on 04/29/16 10:46; Admin Dose 30 MG; Start 04/26/16 at 18:00 Aspirin 81 mg 81 mg DAILY PO Last administered on 04/29/16 10:45; Admin Dose 81 MG; Start 04/26/16 at 09:00 Diltiazem HCl 125 ml @ 5 mls/hr TITRATE IV Last administered on 04/26/16 07: 33; Admin Dose 5 MLS/HR; Start 04/26/16 at 07:00 Ceftriaxone Sodium 50 ml @ 100 mls/hr Q24H IVPB Last administered on 10:44; Admin Dose 100 MLS/HR; Start 04/26/16 at 09:00 Azithromycin (Zithromax 500mg/ NS (Pmx)) 250 ml @ 250 mls/hr Q24H IVPB Last administered on 04/29/16 10:51; Admin Dose 250 MLS/HR; Start 04/26/16 at 08: 00 Digoxin (Digoxin) 0.25 mg DAILY@13 PO Last administered on 04/29/16 13:34; Admin Dose 0.25 MG; Start 04/27/16 at 13:00 Acetaminophen (Tylenol Tab) 650 mg Q6H PRN PO PAIN AND OR ELEVATED TEMP Last administered on 04/28/16 08:49; Admin Dose 650 MG; Start 04/27/16 at 17:30 Diphenoxylate HCl/ Atropine 2 tab 2 tab Q6H PRN PO DIARRHEA Last administered on 04/30/16t 05:18; Admin Dose 2 TAB; Start 04/27/16 at 23:30 Ondansetron HCl/ Dextrose (Zofran Inj/D5W) 54 ml @ 108 mls/hr Q6H PRN IV NAUSEA AND/OR VOMITING; Start 04/28/16 at 10:30 Metoclopramide HCl (Reglan) 10 mg Q6H PRN IV N/V Last administered on 10:12; Admin Dose 10 MG; Start 04/28/16 at 10:30 Lorazepam (Ativan) 1 mg Q3H PRN IV anxiety Last administered on 04/28/16 10: 12; Admin Dose 1 MG; Start 04/28/16 at 10:30 Bisoprolol Fumarate (Zebeta) 10 mg DAILY PO ; Start 04/30/16 at 09:00 KASHIF CARRASCO MD Apr 30, 2016 09:49
[2016-04-30] MEDS: AZITHROMYCIN 500MG/NS (PMX) 250 ML IVPB SCH (10:21)
[2016-04-30] MEDS: FAMOTIDINE 20 MG TAB PO SCH ×2 (10:21→20:16)
[2016-04-30] MEDS: METHIMAZOLE 5 MG TAB PO SCH (10:22)
[2016-04-30] MEDS: BISOPROLOL 5 MG TAB PO SCH (10:22)
[2016-04-30] MEDS: LISINOPRIL 5 MG TAB PO SCH (10:23)
[2016-04-30] MEDS: ASPIRIN (EC) 81 MG TAB PO SCH (10:26)
[2016-04-30] MEDS: CEFTRIAXONE 1 GM/50 ML (PMX) 50 ML IVPB SCH (10:35)
[2016-04-30] MEDS: METOCLOPRAMIDE 10 MG INJ IV PRN (10:35)
[2016-04-30] MEDS: DIGOXIN 0.25 MG TAB PO SCH (12:56)
[2016-04-30] MEDS: RIVAROXABAN 20 MG TABLET PO SCH (17:23)
--- NOTE | 2016-04-30 21:49 | CONS ---
Date/Time of Note Date/Time of Note DATE: 04/30/16 TIME: 21:47 Assessment/Plan Assessment/Plan Chief Complaint/Hosp Course Acute on chronic systolic/diastolic heart failure: The patient is decompensated currently. Her EF is ~30-35%. Unclear what the trigger was but possibly thyrotoxicosis leading to afib with RVR leading to CHF. Significant improvement but still volume overloaded Afib with RVR: Secondary to thyrotoxicosis but exacerbating and exacerbated by heart failure. 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 EF 30-35%. As she is asymptomatic , at this time further ischemic evaluation may be difficult as she has multiple admissions due to noncompliance and if she would need a stent, this would make the situation more difficult. Once she has established outpt follow up she certainly needs ischemic eval. Cardiomyopathy: EF 35%. Most likely nonischemic but needs ischemic eval at some point Hyperthyroidism -continue lasix 40mg IV BID (still overloaded by exam) -continue digoxin -continue bisoprolol 10mg daily Problems: Consultation Date/Type/Reason Admit Date/Time Apr 26, 2016 at 03:59 Initial Consult Date 04/26/16 Type of Consultation: Cardiology Referring Provider: JOSE PALOMINO 24 HR Interval Summary Free Text/Dictation No o/n events. Feels about the same Exam/Review of Systems Vital Signs Vitals Vital Signs Date Time Temp Pulse Resp B/P Pulse Ox O2 Delivery O2 Flow Rate FiO2 04/30/16 20:02 98.3 15 112/57 97 04/30/16 16:21 89 04/26/16 20:22 Room Air Intake and Output 04/29/16 04/29/16 04/30/16 15:00 23:00 07:00 Intake Total 1060 ml 450 ml Balance 1060 ml 450 ml Exam Constitutional: alert, oriented Neck: jvd (8cm) Respiratory: crackles/rales, No clear to auscultation Cardiovascular: edema (1+), No regular rate and rhythm Gastrointestinal: non-tender, soft Results Result Diagram: 04/30/16 0600 04/30/16 0600 Results 24 hrs Laboratory Tests Test 04/30/16 06:00 Alanine Aminotransferase (ALT/SGPT) 35 Albumin 2.8 L Albumin/Globulin Ratio 0.87 Alkaline Phosphatase 132 H Anion Gap 14 Aspartate Amino Transf (AST/SGOT) 29 Basophils # 0.0 Basophils % 0.0 Blood Morphology Comment Blood Urea Nitrogen 27 H Calcium Level 8.8 Carbon Dioxide Level 28 Chloride Level 99 Creatinine 0.75 Differential Comment AUTO w/SCAN Direct Bilirubin 0.00 Eosinophils # 0.4 Eosinophils % 5.2 Globulin 3.20 Glucose Level 89 Hematocrit 28.7 L Hemoglobin 9.1 L Indirect Bilirubin 0.1 Lymphocytes # 2.5 Lymphocytes % 36.0 Mean Corpuscular Hemoglobin 25.4 L Mean Corpuscular Hemoglobin Concent 31.9 L Mean Corpuscular Volume 79.7 L Mean Platelet Volume 7.9 Monocytes # 0.8 Monocytes % 11.0 Neutrophils # 3.3 Neutrophils % 47.8 Nucleated Red Blood Cells # 0.0 Nucleated Red Blood Cells % 0.0 Platelet Count 264 Potassium Level 5.2 H Red Blood Count 3.60 L Red Cell Distribution Width 17.0 H Sodium Level 136 Total Bilirubin 0.1 L Total Protein 6.0 L White Blood Count 6.8 Medications Medications Current Medications Famotidine (Pepcid) 20 mg BID PO Last administered on 04/30/16 20:16; Admin Dose 20 MG; Start 04/26/16 at 09:00 Lisinopril (Zestril) 2.5 mg DAILY PO Last administered on 04/30/16 10:23; Admin Dose 2.5 MG; Start 04/26/16 at 09:00 Methimazole (Tapazole) 30 mg DAILY PO Last administered on 04/30/16 10:22; Admin Dose 30 MG; Start 04/26/16 at 18:00 Aspirin 81 mg 81 mg DAILY PO Last administered on 04/30/16 10:26; Admin Dose 81 MG; Start 04/26/16 at 09:00 Diltiazem HCl 125 ml @ 5 mls/hr TITRATE IV Last administered on 04/26/16at 07: 33; Admin Dose 5 MLS/HR; Start 04/26/16 at 07:00 Ceftriaxone Sodium 50 ml @ 100 mls/hr Q24H IVPB Last administered on 04/30/16 10:35; Admin Dose 100 MLS/HR; Start 04/26/16 at 09:00 Azithromycin (Zithromax 500mg/ NS (Pmx)) 250 ml @ 250 mls/hr Q24H IVPB Last administered on 04/30/16 10:21; Admin Dose 250 MLS/HR; Start 04/26/16 at 08:00 Digoxin (Digoxin) 0.25 mg DAILY@13 PO Last administered on 04/30/16 12:56; Admin Dose 0.25 MG; Start 04/27/16 at 13:00 Acetaminophen (Tylenol Tab) 650 mg Q6H PRN PO PAIN AND OR ELEVATED TEMP Last administered on 04/28/16at 08:49; Admin Dose 650 MG; Start 04/27/16 at 17:30 Diphenoxylate HCl/ Atropine 2 tab 2 tab Q6H PRN PO DIARRHEA Last administered on 04/30/16 05:18; Admin Dose 2 TAB; Start 04/27/16 at 23:30 Ondansetron HCl/ Dextrose (Zofran Inj/D5W) 54 ml @ 108 mls/hr Q6H PRN IV NAUSEA AND/OR VOMITING; Start 04/28/16 at 10:30 Metoclopramide HCl (Reglan) 10 mg Q6H PRN IV N/V Last administered on 04/30/16 10:35; Admin Dose 10 MG; Start 04/28/16 at 10:30 Lorazepam (Ativan) 1 mg Q3H PRN IV anxiety Last administered on 04/28/16at 10: 12; Admin Dose 1 MG; Start 04/28/16 at 10:30 Bisoprolol Fumarate (Zebeta) 10 mg DAILY PO Last administered on 04/30/16 10:22 ; Admin Dose 10 MG; Start 04/30/16 at 09:00 JELLY COOK Apr 30, 2016 21:48
[2016-05-01] VITALS (11 sets, daily range): BP systolic 101–128; BP diastolic 57–76; PULSE 70–117; RESP 15–18
[2016-05-01] MEDS: FUROSEMIDE 40 MG INJ IV SCH ×2 (05:48→17:37)
--- NOTE | 2016-05-01 07:46 | CONS ---
Date/Time of Note Date/Time of Note DATE: 05/01/16 TIME: 07:45 Assessment/Plan Assessment/Plan Chief Complaint/Hosp Course Acute on chronic systolic/diastolic heart failure: The patient is decompensated currently. Her EF is ~30-35%. Unclear what the trigger was but possibly thyrotoxicosis leading to afib with RVR leading to CHF. Significant improvement but still volume overloaded Afib with RVR: Secondary to thyrotoxicosis but exacerbating and exacerbated by heart failure. 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 EF 30-35%. As she is asymptomatic , at this time further ischemic evaluation may be difficult as she has multiple admissions due to noncompliance and if she would need a stent, this would make the situation more difficult. Once she has established outpt follow up she certainly needs ischemic eval. Cardiomyopathy: EF 35%. Most likely nonischemic but needs ischemic eval at some point Hyperthyroidism -continue lasix 40mg IV BID (maybe switch to PO tomorrow) -continue digoxin -continue bisoprolol 10mg daily Problems: Consultation Date/Type/Reason Admit Date/Time Apr 26, 2016 at 03:59 Initial Consult Date 04/26/16 Type of Consultation: Cardiology Referring Provider: JOSE PALOMINO 24 HR Interval Summary Free Text/Dictation No o/n events. Rates controlled Exam/Review of Systems Vital Signs Vitals Vital Signs Date Time Temp Pulse Resp B/P Pulse Ox O2 Delivery O2 Flow Rate FiO2 05/01/16 04:00 70 05/01/16 04:00 98.3 15 119/69 95 Intake and Output 04/30/16 04/30/16 05/01/16 14:59 22:59 06:59 Intake Total 300 ml 1180 ml 250 ml Balance 300 ml 1180 ml 250 ml Exam Constitutional: alert, oriented Psych: no complaints Neck: jvd (8cm) Respiratory: crackles/rales, No clear to auscultation Cardiovascular: No edema, No regular rate and rhythm Gastrointestinal: non-tender, soft Neurological: nl mental status, nl speech Results Result Diagram: 04/30/16 0600 04/30/16 0600 Medications Medications Current Medications Famotidine (Pepcid) 20 mg BID PO Last administered on 04/30/16t 20:16; Admin Dose 20 MG; Start 04/26/16 at 09:00 Lisinopril (Zestril) 2.5 mg DAILY PO Last administered on 04/30/16 10:23; Admin Dose 2.5 MG; Start 04/26/16 at 09:00 Methimazole (Tapazole) 30 mg DAILY PO Last administered on 04/30/16 10:22; Admin Dose 30 MG; Start 04/26/16 at 18:00 Aspirin 81 mg 81 mg DAILY PO Last administered on 04/30/16 10:26; Admin Dose 81 MG; Start 04/26/16 at 09:00 Diltiazem HCl 125 ml @ 5 mls/hr TITRATE IV Last administered on 04/26/16at 07: 33; Admin Dose 5 MLS/HR; Start 04/26/16 at 07:00 Ceftriaxone Sodium 50 ml @ 100 mls/hr Q24H IVPB Last administered on 04/30/16 10:35; Admin Dose 100 MLS/HR; Start 04/26/16 at 09:00 Azithromycin (Zithromax 500mg/ NS (Pmx)) 250 ml @ 250 mls/hr Q24H IVPB Last administered on 04/30/16 10:21; Admin Dose 250 MLS/HR; Start 04/26/16 at 08:00 Digoxin (Digoxin) 0.25 mg DAILY@13 PO Last administered on 04/30/16 12:56; Admin Dose 0.25 MG; Start 04/27/16 at 13:00 Acetaminophen (Tylenol Tab) 650 mg Q6H PRN PO PAIN AND OR ELEVATED TEMP Last administered on 04/28/16at 08:49; Admin Dose 650 MG; Start 04/27/16 at 17:30 Diphenoxylate HCl/ Atropine 2 tab 2 tab Q6H PRN PO DIARRHEA Last administered on 04/30/16 05:18; Admin Dose 2 TAB; Start 04/27/16 at 23:30 Ondansetron HCl/ Dextrose (Zofran Inj/D5W) 54 ml @ 108 mls/hr Q6H PRN IV NAUSEA AND/OR VOMITING; Start 04/28/16 at 10:30 Metoclopramide HCl (Reglan) 10 mg Q6H PRN IV N/V Last administered on 04/30/16 10:35; Admin Dose 10 MG; Start 04/28/16 at 10:30 Lorazepam (Ativan) 1 mg Q3H PRN IV anxiety Last administered on 04/28/16at 10: 12; Admin Dose 1 MG; Start 04/28/16 at 10:30 Bisoprolol Fumarate (Zebeta) 10 mg DAILY PO Last administered on 04/30/16 10:22 ; Admin Dose 10 MG; Start 04/30/16 at 09:00 JELLY COOK May 01, 2016 07:46
[2016-05-01] MEDS: AZITHROMYCIN 500MG/NS (PMX) 250 ML IVPB SCH (08:32)
[2016-05-01] MEDS: METHIMAZOLE 5 MG TAB PO SCH (08:33)
[2016-05-01] MEDS: LISINOPRIL 5 MG TAB PO SCH (08:33)
[2016-05-01] MEDS: BISOPROLOL 5 MG TAB PO SCH (08:34)
[2016-05-01] MEDS: FAMOTIDINE 20 MG TAB PO SCH ×2 (08:34→19:58)
[2016-05-01] MEDS: ASPIRIN (EC) 81 MG TAB PO SCH (08:34)
[2016-05-01] MEDS: CEFTRIAXONE 1 GM/50 ML (PMX) 50 ML IVPB SCH (09:32)
[2016-05-01] MEDS: METOCLOPRAMIDE 10 MG INJ IV PRN (09:34)
--- NOTE | 2016-05-01 11:30 | PN ---
Date/Time of Note Date/Time of Note DATE: 05/01/16 TIME: 11:26 Assessment/Plan VTE Prophylaxis VTE Prophylaxis Intervention: other (Xarelto) Lines/Catheters IV Catheter Type (from Nrs): Saline Lock Assessment/Plan Chief Complaint/Hosp Course Assessment/Plan 1. Atrial fibrillation with rapid ventricular response, likely secondary to # 3. - rate controlled now - continue with BB, xarelto - f/u any further CV rec's 2. Non-ST elevation myocardial infarction - 2/2 demand ischemia likely from her CHF and afib w/ RVR, EF 30-35%. appreciate cardio recs - will likely need outpt CAD w/u when care can be more firmly established - f/u Cv rec's 3. Hypothyroidism with thyrotoxicosis thought to be secondary to underlying Graves' disease with probable noncompliance with therapy -- continue methimazole, appreciate endo recs 4. Cardiomyopathy with last known ejection fraction of 35%, drug induced versus ischemic - possible thyroid disorder induced 5. Congestive heart failure exacerbation. It is an acute variable systolic congestive heart failure exacerbation. - acute on chronic EF = 30-35% - per CV, continue IV lasix BID today, switch to PO in 24 hrs - I/O's - monitor changes 6. Acute community-acquired pneumonia with probable early sepsis and lactic acidosis with tachycardia and lactic acidosis. Clinically improving. - continue with Azithro/Rocephin 7. Hx of Polysubstance abuse to include meth, heroin as well as alcohol - child welfare social worker consult 8. Normocytic Anemia, likely 2/2 chronic disease - monitor H/H, if < 8 g/dL then transfuse 9. Destitution - child welfare social worker for placement 10. GI ppx - pepcid 11. DVT ppx - xarelto dispo - f/u recs, child welfare social worker consult, once cleared by consultants, discharge planning. Problems: Subjective 24 Hr Interval Summary Free Text/Dictation No acute events overnight, seen by CV team this AM. Exam/Review of Systems Vital Signs Vitals Vital Signs Date Time Temp Pulse Resp B/P Pulse Ox O2 Delivery O2 Flow Rate FiO2 05/01/16 08:22 117 05/01/16 07:56 98.0 18 127/68 98 Intake and Output 04/30/16 04/30/16 05/01/16 14:59 22:59 06:59 Intake Total 300 ml 1180 ml 250 ml Balance 300 ml 1180 ml 250 ml Exam Gen Huber: moderate distress 2/2 depression, AAOx4 HEENT: NC/AT, PERRLA, EOMI NECK: supple, no thyromegaly THORAX: symmetrical, no obvious deformities CV: S1S2, irregularly irregular, no M/G/R Lungs: diminished breath sounds to the bases, no overt wheezing Abd: soft, NT/ND, +BS, no rebound, no guarding, neg HSM EXT: no edema, no ecchymosis, no clubbing, FROM, varicosities Neuro: CN II-XII grossly intact, no focal deficits Psych: depressed mood and affect Skin: C/D/I Results Result Diagram: 04/30/16 0600 04/30/16 0600 Medications Medications Current Medications Famotidine (Pepcid) 20 mg BID PO Last administered on 05/01/16 08:34; Admin Dose 20 MG; Start 04/26/16 at 09:00 Lisinopril (Zestril) 2.5 mg DAILY PO Last administered on 05/01/16 08:33; Admin Dose 2.5 MG; Start 04/26/16 at 09:00 Methimazole (Tapazole) 30 mg DAILY PO Last administered on 05/01/16 08:33; Admin Dose 30 MG; Start 04/26/16 at 18:00 Aspirin 81 mg 81 mg DAILY PO Last administered on 05/01/16 08:34; Admin Dose 81 MG; Start 04/26/16 at 09:00 Diltiazem HCl 125 ml @ 5 mls/hr TITRATE IV Last administered on 04/26/16at 07: 33; Admin Dose 5 MLS/HR; Start 04/26/16 at 07:00 Ceftriaxone Sodium 50 ml @ 100 mls/hr Q24H IVPB Last administered on 05/01/16 09:32; Admin Dose 100 MLS/HR; Start 04/26/16 at 09:00 Azithromycin (Zithromax 500mg/ NS (Pmx)) 250 ml @ 250 mls/hr Q24H IVPB Last administered on 05/01/16 08:32; Admin Dose 250 MLS/HR; Start 04/26/16 at 08:00 Digoxin (Digoxin) 0.25 mg DAILY@13 PO Last administered on 04/30/16 12:56; Admin Dose 0.25 MG; Start 04/27/16 at 13:00 Acetaminophen (Tylenol Tab) 650 mg Q6H PRN PO PAIN AND OR ELEVATED TEMP Last administered on 04/28/16 08:49; Admin Dose 650 MG; Start 04/27/16 at 17:30 Diphenoxylate HCl/ Atropine 2 tab 2 tab Q6H PRN PO DIARRHEA Last administered on 04/30/16 05:18; Admin Dose 2 TAB; Start 04/27/16 at 23:30 Ondansetron HCl/ Dextrose (Zofran Inj/D5W) 54 ml @ 108 mls/hr Q6H PRN IV NAUSEA AND/OR VOMITING; Start 04/28/16 at 10:30 Metoclopramide HCl (Reglan) 10 mg Q6H PRN IV N/V Last administered on 05/01/16 09:34; Admin Dose 10 MG; Start 04/28/16 at 10:30 Lorazepam (Ativan) 1 mg Q3H PRN IV anxiety Last administered on 04/28/16at 10: 12; Admin Dose 1 MG; Start 04/28/16 at 10:30 Bisoprolol Fumarate (Zebeta) 10 mg DAILY PO Last administered on 05/01/16 08:34 ; Admin Dose 10 MG; Start 04/30/16 at 09:00 ISABELL GUERRA May 01, 2016 11:30
[2016-05-01] MEDS: DIPHENOXYLATE/ATROPINE TAB PO PRN (12:55)
[2016-05-01] MEDS: DIGOXIN 0.25 MG TAB PO SCH (12:55)
--- NOTE | 2016-05-01 13:47 | CONS ---
Date/Time of Note Date/Time of Note DATE: 05/01/16 TIME: 13:46 Assessment/Plan Assessment/Plan Problems: (1) Thyrotoxicosis without thyroid storm Status: Chronic Comment: Patient is stabilizing in the methimazole will kick in slowly over the next 5-6 weeks. Again when the social issues are stabilized she may be discharged to follow-up. When he right her discharge prescriptions make sure that is done with refills. While this is not typically how we do it in this particular patient to make sure we do not lose her following through the cracks I would appreciate it Qualifiers: Thyrotoxicosis type: with diffuse goiter Qualified Code: E05.00 - Thyrotoxicosis with diffuse goiter and without thyroid storm Consultation Date/Type/Reason Admit Date/Time Apr 26, 2016 at 03:59 Initial Consult Date 04/26/16 Type of Consultation: Endocrinology Reason for Consultation Hyperthyroidism with atrial fibrillation Referring Provider: JOSE PALOMINO 24 HR Interval Summary Constitutional: improved Exam/Review of Systems Vital Signs Vitals Vital Signs Date Time Temp Pulse Resp B/P Pulse Ox O2 Delivery O2 Flow Rate FiO2 05/01/16 12:10 94 05/01/16 12:08 97.0 18 113/57 98 Intake and Output 04/30/16 04/30/16 05/01/16 15:00 23:00 07:00 Intake Total 300 ml 1180 ml 250 ml Balance 300 ml 1180 ml 250 ml Exam Constitutional: alert, oriented Respiratory: clear to auscultation, normal air movement Extremities: other (Tremulous) Results Result Diagram: 04/30/16 0600 04/30/16 0600 Medications Medications Current Medications Famotidine (Pepcid) 20 mg BID PO Last administered on 05/01/16 08:34; Admin Dose 20 MG; Start 04/26/16 at 09:00 Lisinopril (Zestril) 2.5 mg DAILY PO Last administered on 05/01/16 08:33; Admin Dose 2.5 MG; Start 04/26/16 at 09:00 Methimazole (Tapazole) 30 mg DAILY PO Last administered on 05/01/16 08:33; Admin Dose 30 MG; Start 04/26/16 at 18:00 Aspirin 81 mg 81 mg DAILY PO Last administered on 05/01/16 08:34; Admin Dose 81 MG; Start 04/26/16 at 09:00 Diltiazem HCl 125 ml @ 5 mls/hr TITRATE IV Last administered on 04/26/16 07: 33; Admin Dose 5 MLS/HR; Start 04/26/16 at 07:00 Ceftriaxone Sodium 50 ml @ 100 mls/hr Q24H IVPB Last administered on 05/01/16 09:32; Admin Dose 100 MLS/HR; Start 04/26/16 at 09:00 Azithromycin (Zithromax 500mg/ NS (Pmx)) 250 ml @ 250 mls/hr Q24H IVPB Last administered on 05/01/16 08:32; Admin Dose 250 MLS/HR; Start 04/26/16 at 08:00 Digoxin (Digoxin) 0.25 mg DAILY@13 PO Last administered on 05/01/16 12:55; Admin Dose 0.25 MG; Start 04/27/16 at 13:00 Acetaminophen (Tylenol Tab) 650 mg Q6H PRN PO PAIN AND OR ELEVATED TEMP Last administered on 04/28/16at 08:49; Admin Dose 650 MG; Start 04/27/16 at 17:30 Diphenoxylate HCl/ Atropine 2 tab 2 tab Q6H PRN PO DIARRHEA Last administered on 05/01/16 12:55; Admin Dose 2 TAB; Start 04/27/16 at 23:30 Ondansetron HCl/ Dextrose (Zofran Inj/D5W) 54 ml @ 108 mls/hr Q6H PRN IV NAUSEA AND/OR VOMITING; Start 04/28/16 at 10:30 Metoclopramide HCl (Reglan) 10 mg Q6H PRN IV N/V Last administered on 05/01/16 09:34; Admin Dose 10 MG; Start 04/28/16 at 10:30 Lorazepam (Ativan) 1 mg Q3H PRN IV anxiety Last administered on 04/28/16 10: 12; Admin Dose 1 MG; Start 04/28/16 at 10:30 Bisoprolol Fumarate (Zebeta) 10 mg DAILY PO Last administered on 05/01/16 08:34 ; Admin Dose 10 MG; Start 04/30/16 at 09:00 ARIEL GHOSH MD May 01, 2016 13:47
[2016-05-01] MEDS: RIVAROXABAN 20 MG TABLET PO SCH (17:43)
[2016-05-02] VITALS (13 sets, daily range): BP systolic 114–142; BP diastolic 59–78; PULSE 84–105; RESP 15–23
[2016-05-02] MEDS: FUROSEMIDE 40 MG INJ IV SCH (05:15)
[2016-05-02 05:57] LABS: HEMATOCRIT 26.9 % (37.0-47.0); HEMOGLOBIN 8.7 g/dl (12.0-16.0); MEAN CORPUSCULAR HEMOGLOBIN 25.5 pg (29.0-33.0); MEAN CORPUSCULAR HGB CONC 32.3 g/dl (32.0-37.0); MEAN CORPUSCULAR VOLUME 79.2 fl (82.0-101.0); MEAN PLATELET VOLUME 7.7 fl (7.4-10.4); PLATELET COUNT 270 10^3/UL (140-440); UNCORRECTED WBC 7.2 10^3/ul (4.8-10.8); WHITE BLOOD COUNT 7.2 10^3/ul (4.8-10.8)
[2016-05-02 06:03] LABS: POTASSIUM 4.4 mmol/L (3.5-5.1)
[2016-05-02 06:06] LABS: CALCIUM 8.9 mg/dl (8.4-10.2); CREATININE 0.88 mg/dl (0.44-1.00)
[2016-05-02 06:13] LABS: CONDITION 1; LH ANALYZER COMMENTS 1
[2016-05-02] MEDS: METOCLOPRAMIDE 10 MG INJ IV PRN (06:21)
[2016-05-02] MEDS: ACETAMINOPHEN 325 MG TAB PO PRN ×2 (06:23→17:27)
[2016-05-02] MEDS: AZITHROMYCIN 500MG/NS (PMX) 250 ML IVPB SCH (07:45)
--- NOTE | 2016-05-02 08:56 | CONS ---
Date/Time of Note Date/Time of Note DATE: 05/02/16 TIME: 08:54 Assessment/Plan Assessment/Plan Chief Complaint/Hosp Course Acute on chronic systolic/diastolic heart failure: The patient is decompensated currently. Her EF is ~30-35%. Unclear what the trigger was but possibly thyrotoxicosis leading to afib with RVR leading to CHF. Significant improvement , now ~euvolemic Afib with RVR: Secondary to thyrotoxicosis but exacerbating and exacerbated by heart failure. 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 EF 30-35%. As she is asymptomatic , at this time further ischemic evaluation may be difficult as she has multiple admissions due to noncompliance and if she would need a stent, this would make the situation more difficult. Once she has established outpt follow up she certainly needs ischemic eval. Cardiomyopathy: EF 35%. Most likely nonischemic but needs ischemic eval at some point Hyperthyroidism -switch to lasix 40mg PO daily -continue digoxin -continue bisoprolol 10mg daily -lisinopril -Xarelto Problems: Consultation Date/Type/Reason Admit Date/Time Apr 26, 2016 at 03:59 Initial Consult Date 04/26/16 Type of Consultation: Cardiology Referring Provider: JOSE PALOMINO 24 HR Interval Summary Free Text/Dictation Breathing is ok but has significant diarrhea every time she received antibiotics Exam/Review of Systems Vital Signs Vitals Vital Signs Date Time Temp Pulse Resp B/P Pulse Ox O2 Delivery O2 Flow Rate FiO2 05/02/16 08:22 97.9 80 22 114/66 98 05/02/16 04:01 Room Air Intake and Output 05/01/16 05/01/16 05/02/16 15:00 23:00 07:00 Intake Total 300 ml 900 ml 500 ml Balance 300 ml 900 ml 500 ml Exam Constitutional: alert, oriented Psych: no complaints Head: normocephalic Neck: jvd (7cm) Respiratory: clear to auscultation Cardiovascular: regular rate and rhythm, systolic murmur (2/6) Gastrointestinal: non-tender, soft Extremities: normal pulses Neurological: nl mental status, nl speech Results Result Diagram: 05/02/16 0519 05/02/16 0519 Results 24 hrs Laboratory Tests Test 05/01/16 17:20 05/02/16 05:19 Lactic Acid Level 2.1 Anion Gap 14 Blood Morphology Comment Blood Urea Nitrogen 30 H Calcium Level 8.9 Carbon Dioxide Level 32 H Chloride Level 97 Creatinine 0.88 Glucose Level 99 Hematocrit 26.9 L Hemoglobin 8.7 L Mean Corpuscular Hemoglobin 25.5 L Mean Corpuscular Hemoglobin Concent 32.3 Mean Corpuscular Volume 79.2 L Mean Platelet Volume 7.7 Platelet Count 270 Potassium Level 4.4 Red Blood Count 3.40 L Red Cell Distribution Width 17.0 H Sodium Level 139 White Blood Count 7.2 Medications Medications Current Medications Famotidine (Pepcid) 20 mg BID PO Last administered on 05/01/16 19:58; Admin Dose 20 MG; Start 04/26/16 at 09:00 Lisinopril (Zestril) 2.5 mg DAILY PO Last administered on 05/01/16 08:33; Admin Dose 2.5 MG; Start 04/26/16 at 09:00 Methimazole (Tapazole) 30 mg DAILY PO Last administered on 05/01/16 08:33; Admin Dose 30 MG; Start 04/26/16 at 18:00 Aspirin 81 mg 81 mg DAILY PO Last administered on 05/01/16 08:34; Admin Dose 81 MG; Start 04/26/16 at 09:00 Diltiazem HCl 125 ml @ 5 mls/hr TITRATE IV Last administered on 04/26/16at 07: 33; Admin Dose 5 MLS/HR; Start 04/26/16 at 07:00 Ceftriaxone Sodium 50 ml @ 100 mls/hr Q24H IVPB Last administered on 05/01/16 09:32; Admin Dose 100 MLS/HR; Start 04/26/16 at 09:00 Azithromycin (Zithromax 500mg/ NS (Pmx)) 250 ml @ 250 mls/hr Q24H IVPB Last administered on 05/02/16 07:45; Admin Dose 250 MLS/HR; Start 04/26/16 at 08:00 Digoxin (Digoxin) 0.25 mg DAILY@13 PO Last administered on 05/01/16 12:55; Admin Dose 0.25 MG; Start 04/27/16 at 13:00 Acetaminophen (Tylenol Tab) 650 mg Q6H PRN PO PAIN AND OR ELEVATED TEMP Last administered on 05/02/16 06:23; Admin Dose 650 MG; Start 04/27/16 at 17:30 Diphenoxylate HCl/ Atropine 2 tab 2 tab Q6H PRN PO DIARRHEA Last administered on 05/01/16 12:55; Admin Dose 2 TAB; Start 04/27/16 at 23:30 Ondansetron HCl/ Dextrose (Zofran Inj/D5W) 54 ml @ 108 mls/hr Q6H PRN IV NAUSEA AND/OR VOMITING; Start 04/28/16 at 10:30 Metoclopramide HCl (Reglan) 10 mg Q6H PRN IV N/V Last administered on 05/02/16 06:21; Admin Dose 10 MG; Start 04/28/16 at 10:30 Lorazepam (Ativan) 1 mg Q3H PRN IV anxiety Last administered on 04/28/16at 10: 12; Admin Dose 1 MG; Start 04/28/16 at 10:30 Bisoprolol Fumarate (Zebeta) 10 mg DAILY PO Last administered on 05/01/16 08:34 ; Admin Dose 10 MG; Start 04/30/16 at 09:00 Furosemide (Lasix) 40 mg DAILY PO ; Start 05/03/16 at 09:00 JELLY COOK May 02, 2016 08:56
[2016-05-02] MEDS: CEFTRIAXONE 1 GM/50 ML (PMX) 50 ML IVPB SCH (09:00)
[2016-05-02 09:08] LABS: BASOPHIL # 0.1 10^3/ul (0.0-0.1); EOSINOPHILS # 0.1 10^3/ul (0.0-0.5); LYMPHOCYTES # 1.5 10^3/ul (0.8-2.9); MONOCYTE # 0.6 10^3/ul (0.3-0.9); NEUTROPHIL # 4.9 10^3/ul (1.6-7.5)
[2016-05-02 09:09] LABS: ANISOCYTOSIS 1+; HYPOCHROMASIA 2+; MICROCYTOSIS 1+; PLATELET ESTIMATE PLT APPEAR ADEQUATE
[2016-05-02] MEDS: ASPIRIN (EC) 81 MG TAB PO SCH (09:11)
[2016-05-02] MEDS: METHIMAZOLE 5 MG TAB PO SCH (09:11)
[2016-05-02] MEDS: FAMOTIDINE 20 MG TAB PO SCH ×2 (09:12→20:15)
[2016-05-02] MEDS: BISOPROLOL 5 MG TAB PO SCH (09:12)
[2016-05-02] MEDS: LISINOPRIL 5 MG TAB PO SCH (09:12)
--- NOTE | 2016-05-02 11:06 | PN ---
Date/Time of Note Date/Time of Note DATE: 05/02/16 TIME: 11:00 Assessment/Plan VTE Prophylaxis VTE Prophylaxis Intervention: other (Xarelto) Lines/Catheters IV Catheter Type (from [facility]): Saline Lock Assessment/Plan Chief Complaint/Hosp Course Assessment/Plan 1. Atrial fibrillation with rapid ventricular response, likely secondary to #3 - rate controlled now - continue with BB, xarelto - f/u any further CV rec's 2. Non-ST elevation myocardial infarction - 2/2 demand ischemia likely from her CHF and afib w/ RVR, EF 30-35%. appreciate cardio recs - will need strict outpt CAD w/u when care can be more firmly established - f/u CV rec's 3. 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 Cardiomyopathy with last known ejection fraction of 35%, drug induced versus ischemic - possible thyroid disorder induced 5. Congestive heart failure exacerbation. It is an acute variable systolic congestive heart failure exacerbation. - acute on chronic EF = 30-35% - per CV, continue today PO lasix - I/O's - monitor changes 6. Acute community-acquired pneumonia with probable early sepsis and lactic acidosis with tachycardia and lactic acidosis. Clinically improving. - continue with Azithro/Rocephin 7. Hx of Polysubstance abuse to include meth, heroin as well as alcohol - social science analyst consult 8. Normocytic Anemia, likely 2/2 chronic disease - monitor H/H, if < 8 g/dL then transfuse 9. Destitution - social science analyst for placement 10. GI ppx - pepcid 11. DVT ppx - xarelto dispo - f/u recs, social science analyst consult, once cleared by consultants, discharge planning - strongly recommending SNF placement. Problems: Subjective 24 Hr Interval Summary Free Text/Dictation Pt complaining of some loose stools (c diff was neg). Seen by workforce management consultant teams. other flower no acute events overnight. Exam/Review of Systems Vital Signs Vitals Vital Signs Date Time Temp Pulse Resp B/P Pulse Ox O2 Delivery O2 Flow Rate FiO2 05/02/16 08:22 97.9 80 22 114/66 98 05/02/16 04:01 Room Air Intake and Output 05/01/16 05/01/16 05/02/16 15:00 23:00 07:00 Intake Total 300 ml 900 ml 500 ml Balance 300 ml 900 ml 500 ml Exam Gen Uhber: less distress 2/2 depression, AAOx4 HEENT: NC/AT, PERRLA, EOMI NECK: supple, no thyromegaly THORAX: symmetrical, no obvious deformities CV: S1S2, irregularly irregular, no M/G/R Lungs: diminished breath sounds to the bases, no overt wheezing Abd: soft, NT/ND, +BS, no rebound, no guarding, neg HSM EXT: no edema, no ecchymosis, no clubbing, FROM, varicosities Neuro: CN II-XII grossly intact, no focal deficits Psych: some occasional depressed mood and affect Skin: C/D/I Results Result Diagram: 05/02/1651805/02/16518 Results 24 hrs Laboratory Tests Test 05/01/16 17:20 05/02/16 05:19 Lactic Acid Level 2.1 Anion Gap 14 Anisocytosis 1+ Basophils # 0.1 Basophils % 1.0 Blood Morphology Comment Blood Urea Nitrogen 30 H Calcium Level 8.9 Carbon Dioxide Level 32 H Chloride Level 97 Creatinine 0.88 Eosinophils # 0.1 Eosinophils % 2.0 Glucose Level 99 Hematocrit 26.9 L Hemoglobin 8.7 L Hypochromasia 2+ Lymphocytes # 1.5 Lymphocytes % 21.0 Mean Corpuscular Hemoglobin 25.5 L Mean Corpuscular Hemoglobin Concent 32.3 Mean Corpuscular Volume 79.2 L Mean Platelet Volume 7.7 Microcytosis 1+ Monocytes # 0.6 Monocytes % 8.0 Neutrophils # 4.9 Neutrophils % 68.0 Platelet Count 270 Platelet Estimate PLT APPEAR ADEQUATE Potassium Level 4.4 Red Blood Count 3.40 L Red Cell Distribution Width 17.0 H Sodium Level 139 White Blood Count 7.2 Medications Medications Current Medications Famotidine (Pepcid) 20 mg BID PO Last administered on 05/02/16 09:12; Admin Dose 20 MG; Start 04/26/16 at 09:00 Lisinopril (Zestril) 2.5 mg DAILY PO Last administered on 05/02/16 09:12; Admin Dose 2.5 MG; Start 04/26/16 at 09:00 Methimazole (Tapazole) 30 mg DAILY PO Last administered on 05/02/16 09:11; Admin Dose 30 MG; Start 04/26/16 at 18:00 Aspirin 81 mg 81 mg DAILY PO Last administered on 05/02/16 09:11; Admin Dose 81 MG; Start 04/26/16 at 09:00 Diltiazem HCl (Cardizem-D5W 125 Mg/125 ml Drip) 125 ml @ 5 mls/hr TITRATE IV Last administered on 04/26/16at 07:33; Admin Dose 5 MLS/HR; Start 04/26/16 at 07:00 Digoxin (Digoxin) 0.25 mg DAILY@13 PO Last administered on 05/01/16 12:55; Admin Dose 0.25 MG; Start 04/27/16 at 13:00 Acetaminophen (Tylenol Tab) 650 mg Q6H PRN PO PAIN AND OR ELEVATED TEMP Last administered on 05/02/16 06:23; Admin Dose 650 MG; Start 04/27/16 at 17:30 Diphenoxylate HCl/ Atropine 2 tab 2 tab Q6H PRN PO DIARRHEA Last administered on 05/01/16 12:55; Admin Dose 2 TAB; Start 04/27/16 at 23:30 Ondansetron HCl/ Dextrose (Zofran Inj/D5W) 54 ml @ 108 mls/hr Q6H PRN IV NAUSEA AND/OR VOMITING; Start 04/28/16 at 10:30 Metoclopramide HCl (Reglan) 10 mg Q6H PRN IV N/V Last administered on 05/02/16 06:21; Admin Dose 10 MG; Start 04/28/16 at 10:30 Lorazepam (Ativan) 1 mg Q3H PRN IV anxiety Last administered on 04/28/16at 10: 12; Admin Dose 1 MG; Start 04/28/16 at 10:30 Bisoprolol Fumarate (Zebeta) 10 mg DAILY PO Last administered on 05/02/16 09:12 ; Admin Dose 10 MG; Start 04/30/16 at 09:00 Furosemide (Lasix) 40 mg DAILY PO ; Start 05/03/16 at 09:00 ISABELL GUERRA May 02, 2016 11:06
[2016-05-02] MEDS: DIGOXIN 0.25 MG TAB PO SCH (12:20)
[2016-05-02] MEDS: RIVAROXABAN 20 MG TABLET PO SCH (17:25)
--- NOTE | 2016-05-02 18:52 | CONS ---
Date/Time of Note Date/Time of Note DATE: 05/02/16 TIME: 18:50 Assessment/Plan Assessment/Plan Problems: (1) Thyrotoxicosis without thyroid storm Status: Chronic Comment: Now on methimazole 30 mg/d x 1 week. Will recheck TFT's tomorrow am. Cont. current dose. Qualifiers: Thyrotoxicosis type: with diffuse goiter Qualified Code: E05.00 - Thyrotoxicosis with diffuse goiter and without thyroid storm Consultation Date/Type/Reason Admit Date/Time Apr 26, 2016 at 03:59 Initial Consult Date 04/26/16 Type of Consultation: Endocrinology Reason for Consultation Thyrotoxicosis Referring Provider: JOSE PALOMINO 24 HR Interval Summary Constitutional: improved, no complaints Detailed Summary Respiratory: no complaints Cardiovascular: no complaints Gastrointestinal: no complaints Genitourinary: no complaints Musculoskeletal: other (B foot pain, L > R) Neurologic: no complaints Exam/Review of Systems Vital Signs Vitals VS - Last 72 Hours, by Label Date Time Temp Pulse Resp B/P Pulse Ox O2 Delivery O2 Flow Rate FiO2 05/02/16 16:45 84 05/02/16 16:21 97.6 58 23 142/78 98 05/02/16 12:16 95 05/02/16 12:15 97.6 69 21 118/59 99 05/02/16 08:22 97.9 80 22 114/66 98 05/02/16 08:21 92 05/02/16 04:04 93 05/02/16 04:01 97.3 89 18 115/64 96 Room Air 05/02/16 04:00 97.7 89 17 115/64 96 05/02/16 00:07 105 05/02/16 00:00 98.3 88 17 115/72 97 Room Air 05/02/16 00:00 98.3 87 15 116/72 95 05/01/16 20:26 86 05/01/16 20:00 98.3 82 15 117/76 100 05/01/16 20:00 97.8 87 16 116/76 100 Room Air 05/01/16 16:25 91 05/01/16 15:51 98.0 95 18 128/66 98 05/01/16 12:10 94 05/01/16 12:08 97.0 89 18 113/57 98 05/01/16 08:22 117 05/01/16 07:56 98.0 78 18 127/68 98 05/01/16 04:00 70 05/01/16 04:00 98.3 87 15 119/69 95 05/01/16 00:00 80 05/01/16 00:00 98.3 87 15 124/63 95 04/30/16 20:15 60 04/30/16 20:02 98.3 15 112/57 97 04/30/16 16:21 89 04/30/16 15:14 98.3 68 20 125/49 100 04/30/16 12:46 103 04/30/16 11:45 83 04/30/16 11:34 98.4 56 20 109/59 97 04/30/16 08:23 90 04/30/16 07:00 98.1 111 20 105/62 99 04/30/16 04:20 97.4 92 20 112/60 93 04/30/16 04:16 105 04/30/16 00:29 98.4 93 18 113/62 96 04/30/16 00:00 89 04/29/16 20:18 117 04/29/16 20:10 98.2 74 18 106/59 97 Vital Signs Date Time Temp Pulse Resp B/P Pulse Ox O2 Delivery O2 Flow Rate FiO2 05/02/16 16:45 84 05/02/16 16:21 97.6 23 142/78 98 05/02/16 04:01 Room Air Intake and Output 05/01/16 05/01/16 05/02/16 15:00 23:00 07:00 Intake Total 300 ml 900 ml 500 ml Balance 300 ml 900 ml 500 ml Exam Constitutional: alert, oriented, well developed Psych: nl mood/affect, no complaints Respiratory: clear to auscultation, normal air movement Cardiovascular: nl pulses, regular rate and rhythm, No edema, No murmurs/extra sounds, No rub Gastrointestinal: bowel sounds, mass, nl liver, spleen, non-tender, rebound or guarding, soft Musculoskeletal: nl extremities to inspection Extremities: normal pulses, No clubbing, No cyanosis, No edema Neurological: SHAFT MECHANIC II-XII intact, nl mental status, nl speech, nl strength Results Result Diagram: 05/02/16 0519 05/02/16 0519 Results 24 hrs Laboratory Tests Test 05/02/16 05:19 Anion Gap 14 Anisocytosis 1+ Basophils # 0.1 Basophils % 1.0 Blood Morphology Comment Blood Urea Nitrogen 30 H Calcium Level 8.9 Carbon Dioxide Level 32 H Chloride Level 97 Creatinine 0.88 Eosinophils # 0.1 Eosinophils % 2.0 Glucose Level 99 Hematocrit 26.9 L Hemoglobin 8.7 L Hypochromasia 2+ Lymphocytes # 1.5 Lymphocytes % 21.0 Mean Corpuscular Hemoglobin 25.5 L Mean Corpuscular Hemoglobin Concent 32.3 Mean Corpuscular Volume 79.2 L Mean Platelet Volume 7.7 Microcytosis 1+ Monocytes # 0.6 Monocytes % 8.0 Neutrophils # 4.9 Neutrophils % 68.0 Platelet Count 270 Platelet Estimate PLT APPEAR ADEQUATE Potassium Level 4.4 Red Blood Count 3.40 L Red Cell Distribution Width 17.0 H Sodium Level 139 White Blood Count 7.2 Medications Medications Current Medications Famotidine (Pepcid) 20 mg BID PO Last administered on 05/02/16 09:12; Admin Dose 20 MG; Start 04/26/16 at 09:00 Lisinopril (Zestril) 2.5 mg DAILY PO Last administered on 05/02/16 09:12; Admin Dose 2.5 MG; Start 04/26/16 at 09:00 Methimazole (Tapazole) 30 mg DAILY PO Last administered on 05/02/16 09:11; Admin Dose 30 MG; Start 04/26/16 at 18:00 Aspirin 81 mg 81 mg DAILY PO Last administered on 05/02/16 09:11; Admin Dose 81 MG; Start 04/26/16 at 09:00 Diltiazem HCl (Cardizem-D5W 125 Mg/125 ml Drip) 125 ml @ 5 mls/hr TITRATE IV Last administered on 04/26/16at 07:33; Admin Dose 5 MLS/HR; Start 04/26/16 at 07:00 Digoxin (Digoxin) 0.25 mg DAILY@13 PO Last administered on 05/02/16 12:20; Admin Dose 0.25 MG; Start 04/27/16 at 13:00 Acetaminophen (Tylenol Tab) 650 mg Q6H PRN PO PAIN AND OR ELEVATED TEMP Last administered on 05/02/16 17:27; Admin Dose 650 MG; Start 04/27/16 at 17:30 Diphenoxylate HCl/ Atropine 2 tab 2 tab Q6H PRN PO DIARRHEA Last administered on 05/01/16 12:55; Admin Dose 2 TAB; Start 04/27/16 at 23:30 Ondansetron HCl/ Dextrose (Zofran Inj/D5W) 54 ml @ 108 mls/hr Q6H PRN IV NAUSEA AND/OR VOMITING; Start 04/28/16 at 10:30 Metoclopramide HCl (Reglan) 10 mg Q6H PRN IV N/V Last administered on 05/02/16 06:21; Admin Dose 10 MG; Start 04/28/16 at 10:30 Lorazepam (Ativan) 1 mg Q3H PRN IV anxiety Last administered on 04/28/16at 10: 12; Admin Dose 1 MG; Start 04/28/16 at 10:30 Bisoprolol Fumarate (Zebeta) 10 mg DAILY PO Last administered on 05/02/16 09:12 ; Admin Dose 10 MG; Start 04/30/16 at 09:00 Furosemide (Lasix) 40 mg DAILY PO ; Start 05/03/16 at 09:00 VIRI ROSALES MD May 02, 2016 18:52
[2016-05-02] MEDS: LORAZEPAM 2 MG INJ IV PRN (21:04)
[2016-05-03] VITALS (11 sets, daily range): BP systolic 111–132; BP diastolic 66–80; PULSE 77–103; RESP 18–22
[2016-05-03 06:31] LABS: HEMATOCRIT 28.3 % (37.0-47.0); HEMOGLOBIN 9.1 g/dl (12.0-16.0); MEAN CORPUSCULAR HEMOGLOBIN 25.5 pg (29.0-33.0); MEAN CORPUSCULAR HGB CONC 32.3 g/dl (32.0-37.0); MEAN CORPUSCULAR VOLUME 78.9 fl (82.0-101.0); MEAN PLATELET VOLUME 7.8 fl (7.4-10.4); PLATELET COUNT 288 10^3/UL (140-440); RED BLOOD COUNT 3.59 10^6/ul (4.20-5.40); UNCORRECTED WBC 8.4 10^3/ul (4.8-10.8); WHITE BLOOD COUNT 8.4 10^3/ul (4.8-10.8)
[2016-05-03 06:38] LABS: POTASSIUM 5.3 mmol/L (3.5-5.1)
[2016-05-03 06:41] LABS: CREATININE 0.73 mg/dl (0.44-1.00)
[2016-05-03 06:42] LABS: CALCIUM 9.4 mg/dl (8.4-10.2)
[2016-05-03 06:48] LABS: CONDITION 1; LH ANALYZER COMMENTS 1
[2016-05-03 07:42] LABS: TRIIODOTHYRONINE 2.26 ng/ml (0.97-1.69)
[2016-05-03 07:45] LABS: THYROID STIMULATING HORMONE < 0.015 MIU/L (0.465-4.680)
[2016-05-03] MEDS: METHIMAZOLE 5 MG TAB PO SCH (08:52)
[2016-05-03] MEDS: FAMOTIDINE 20 MG TAB PO SCH ×2 (08:53→20:52)
[2016-05-03] MEDS: LISINOPRIL 5 MG TAB PO SCH (08:53)
[2016-05-03] MEDS: ASPIRIN (EC) 81 MG TAB PO SCH (08:53)
[2016-05-03] MEDS ORDERED: FUROSEMIDE 40 MG TAB PO SCH (09:00)
[2016-05-03 09:43] LABS: EOSINOPHILS # 0.5 10^3/ul (0.0-0.5); LYMPHOCYTES # 1.3 10^3/ul (0.8-2.9); MONOCYTE # 0.7 10^3/ul (0.3-0.9)
[2016-05-03 09:44] LABS: ANISOCYTOSIS 1+; HYPOCHROMASIA 1+; MICROCYTOSIS 1+
[2016-05-03] MEDS: BISOPROLOL 5 MG TAB PO SCH (09:45)
[2016-05-03] MEDS ORDERED: NA POLYST SULFON 15 GM/60 ML BTL PO ONE (11:00)
--- NOTE | 2016-05-03 11:01 | PN ---
Date/Time of Note Date/Time of Note DATE: 05/03/16 TIME: 10:58 Assessment/Plan VTE Prophylaxis VTE Prophylaxis Intervention: other (Xarelto) Lines/Catheters IV [facility] Saline Lock Assessment/Plan Chief Complaint/Hosp Course Assessment/Plan 1. Atrial fibrillation with rapid ventricular response, likely secondary to #3 - rate controlled now - continue with BB, xarelto - f/u any further CV rec's 2. Non-ST elevation myocardial infarction - 2/2 demand ischemia likely from her CHF and afib w/ RVR, EF 30-35%. appreciate cardio recs - will need strict outpt CAD w/u when care can be more firmly established - f/u CV rec's 3. 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 Cardiomyopathy with last known ejection fraction of 35%, drug induced versus ischemic - possible thyroid disorder induced 5. Congestive heart failure exacerbation. It is an acute variable systolic congestive heart failure exacerbation. - acute on chronic EF = 30-35% - per CV, continue today PO lasix - I/O's - monitor changes 6. Acute community-acquired pneumonia with probable early sepsis and lactic acidosis with tachycardia and lactic acidosis. Clinically improving. - continue with Azithro/Rocephin 7. Hx of Polysubstance abuse to include meth, heroin as well as alcohol - executive secretary social welfare consult 8. Normocytic Anemia, likely 2/2 chronic disease - monitor H/H, if < 8 g/dL then transfuse 9. Destitution - executive secretary social welfare for placement 10. GI ppx - pepcid 11. DVT ppx - xarelto dispo - f/u recs, executive secretary social welfare consult, once cleared by consultants, discharge planning - strongly recommending SNF placement. Problems: Subjective 24 Hr Interval Summary Free Text/Dictation No acute events overnight. Seen by CV and Endo teams yersterday. Exam/Review of Systems Vital Signs Vitals Vital Signs Date Time Temp Pulse Resp B/P Pulse Ox O2 Delivery O2 Flow Rate FiO2 05/03/16 08:08 101 05/03/16 08:00 97.5 22 132/72 98 05/02/16 04:01 Room Air Intake and Output 05/02/16 05/02/16 05/03/16 15:00 23:00 07:00 Intake Total 250 ml 800 ml 300 ml Balance 250 ml 800 ml 300 ml Exam Gen Huber: less distress 2/2 depression, AAOx4 HEENT: NC/AT, PERRLA, EOMI NECK: supple, no thyromegaly THORAX: symmetrical, no obvious deformities CV: S1S2, irregularly irregular, no M/G/R Lungs: diminished breath sounds to the bases, no overt wheezing Abd: soft, NT/ND, +BS, no rebound, no guarding, neg HSM EXT: no edema, no ecchymosis, no clubbing, FROM, varicosities Neuro: CN II-XII grossly intact, no focal deficits Psych: some occasional depressed mood and affect Skin: C/D/I Results Result Diagram: 05/03/16 0525 05/03/16 0540 Results 24 hrs Laboratory Tests Test 05/03/16 05:25 05/03/16 05:40 Anisocytosis 1+ Blood Morphology Comment Differential Comment MANUAL DIFF Eosinophils # 0.5 Eosinophils % 6.0 Free Thyroxine 1.83 H Hematocrit 28.3 L Hemoglobin 9.1 L Hypochromasia 1+ Lymphocytes # 1.3 Lymphocytes % 15.0 Mean Corpuscular Hemoglobin 25.5 L Mean Corpuscular Hemoglobin Concent 32.3 Mean Corpuscular Volume 78.9 L Mean Platelet Volume 7.8 Microcytosis 1+ Monocytes # 0.7 Monocytes % 8.0 Neutrophils # 6.0 Neutrophils % 71.0 Platelet Count 288 Red Blood Count 3.59 L Red Cell Distribution Width 17.0 H Thyroid Stimulating Hormone (TSH) < 0.015 L Total Triiodothyronine 2.26 H White Blood Count 8.4 Anion Gap 13 Blood Urea Nitrogen 28 H Calcium Level 9.4 Carbon Dioxide Level 28 Chloride Level 102 Creatinine 0.73 Glucose Level 83 Potassium Level 5.3 H Sodium Level 138 Medications Medications Current Medications Famotidine (Pepcid) 20 mg BID PO Last administered on 05/03/16 08:53; Admin Dose 20 MG; Start 04/26/16 at 09:00 Lisinopril (Zestril) 2.5 mg DAILY PO Last administered on 05/03/16 08:53; Admin Dose 2.5 MG; Start 04/26/16 at 09:00 Methimazole (Tapazole) 30 mg DAILY PO Last administered on 05/03/16 08:52; Admin Dose 30 MG; Start 04/26/16 at 18:00 Aspirin 81 mg 81 mg DAILY PO Last administered on 05/03/16 08:53; Admin Dose 81 MG; Start 04/26/16 at 09:00 Diltiazem HCl (Cardizem-D5W 125 Mg/125 ml Drip) 125 ml @ 5 mls/hr TITRATE IV Last administered on 04/26/16at 07:33; Admin Dose 5 MLS/HR; Start 04/26/16 at 07:00 Digoxin (Digoxin) 0.25 mg DAILY@13 PO Last administered on 05/02/16 12:20; Admin Dose 0.25 MG; Start 04/27/16 at 13:00 Acetaminophen (Tylenol Tab) 650 mg Q6H PRN PO PAIN AND OR ELEVATED TEMP Last administered on 05/02/16 17:27; Admin Dose 650 MG; Start 04/27/16 at 17:30 Diphenoxylate HCl/ Atropine 2 tab 2 tab Q6H PRN PO DIARRHEA Last administered on 05/01/16 12:55; Admin Dose 2 TAB; Start 04/27/16 at 23:30 Ondansetron HCl/ Dextrose (Zofran Inj/D5W) 54 ml @ 108 mls/hr Q6H PRN IV NAUSEA AND/OR VOMITING; Start 04/28/16 at 10:30 Metoclopramide HCl (Reglan) 10 mg Q6H PRN IV N/V Last administered on 05/02/16 06:21; Admin Dose 10 MG; Start 04/28/16 at 10:30 Lorazepam (Ativan) 1 mg Q3H PRN IV anxiety Last administered on 05/02/16 21:04 ; Admin Dose 1 MG; Start 04/28/16 at 10:30 Bisoprolol Fumarate (Zebeta) 10 mg DAILY PO Last administered on 05/03/16 09:45 ; Admin Dose 10 MG; Start 04/30/16 at 09:00 Furosemide (Lasix) 40 mg DAILY PO Last administered on 05/03/16 08:53; Admin Dose 40 MG; Start 05/03/16 at 09:00 Sodium Polystyrene Sulfonate (Kayexalate) 15 gm ONCE ONCE PO ; Start 05/03/16 at 11:00; Stop 05/03/16 at 11:01 ISABELL GUERRA May 03, 2016 11:01
--- NOTE | 2016-05-03 11:07 | CONS ---
Date/Time of Note Date/Time of Note DATE: 05/03/16 TIME: 11:06 Assessment/Plan Assessment/Plan Chief Complaint/Hosp Course Acute on chronic systolic/diastolic heart failure: The patient is decompensated currently. Her EF is ~30-35%. Unclear what the trigger was but possibly thyrotoxicosis leading to afib with RVR leading to CHF. Significant improvement , now ~euvolemic Afib with RVR: Secondary to thyrotoxicosis but exacerbating and exacerbated by heart failure. 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 EF 30-35%. As she is asymptomatic , at this time further ischemic evaluation may be difficult as she has multiple admissions due to noncompliance and if she would need a stent, this would make the situation more difficult. Once she has established outpt follow up she certainly needs ischemic eval. Cardiomyopathy: EF 35%. Most likely nonischemic but needs ischemic eval at some point Hyperthyroidism -lasix 40mg PO daily -continue digoxin -continue bisoprolol 10mg daily -lisinopril -Xarelto Problems: Consultation Date/Type/Reason Admit Date/Time Apr 26, 2016 at 03:59 Initial Consult Date 04/26/16 Type of Consultation: Cardiology Referring Provider: JOSE PALOMINO 24 HR Interval Summary Free Text/Dictation No o/n events. Feeling well. May be transferred to [facility] or to a [facility] Exam/Review of Systems Vital Signs Vitals Vital Signs Date Time Temp Pulse Resp B/P Pulse Ox O2 Delivery O2 Flow Rate FiO2 05/03/16 08:08 101 05/03/16 08:00 97.5 22 132/72 98 05/02/16 04:01 Room Air Intake and Output 05/02/16 05/02/16 05/03/16 15:00 23:00 07:00 Intake Total 250 ml 800 ml 300 ml Balance 250 ml 800 ml 300 ml Exam Constitutional: alert, oriented Head: atraumatic, normocephalic Neck: No jvd Respiratory: clear to auscultation Cardiovascular: No edema, No regular rate and rhythm Gastrointestinal: non-tender, soft Extremities: normal pulses Results Result Diagram: 05/03/16 0525 05/03/16 0540 Results 24 hrs Laboratory Tests Test 05/03/16 05:25 05/03/16 05:40 Anisocytosis 1+ Blood Morphology Comment Differential Comment MANUAL DIFF Eosinophils # 0.5 Eosinophils % 6.0 Free Thyroxine 1.83 H Hematocrit 28.3 L Hemoglobin 9.1 L Hypochromasia 1+ Lymphocytes # 1.3 Lymphocytes % 15.0 Mean Corpuscular Hemoglobin 25.5 L Mean Corpuscular Hemoglobin Concent 32.3 Mean Corpuscular Volume 78.9 L Mean Platelet Volume 7.8 Microcytosis 1+ Monocytes # 0.7 Monocytes % 8.0 Neutrophils # 6.0 Neutrophils % 71.0 Platelet Count 288 Red Blood Count 3.59 L Red Cell Distribution Width 17.0 H Thyroid Stimulating Hormone (TSH) < 0.015 L Total Triiodothyronine 2.26 H White Blood Count 8.4 Anion Gap 13 Blood Urea Nitrogen 28 H Calcium Level 9.4 Carbon Dioxide Level 28 Chloride Level 102 Creatinine 0.73 Glucose Level 83 Potassium Level 5.3 H Sodium Level 138 Medications Medications Current Medications Famotidine (Pepcid) 20 mg BID PO Last administered on 05/03/16 08:53; Admin Dose 20 MG; Start 04/26/16 at 09:00 Lisinopril (Zestril) 2.5 mg DAILY PO Last administered on 05/03/16 08:53; Admin Dose 2.5 MG; Start 04/26/16 at 09:00 Methimazole (Tapazole) 30 mg DAILY PO Last administered on 05/03/16 08:52; Admin Dose 30 MG; Start 04/26/16 at 18:00 Aspirin 81 mg 81 mg DAILY PO Last administered on 05/03/16 08:53; Admin Dose 81 MG; Start 04/26/16 at 09:00 Diltiazem HCl (Cardizem-D5W 125 Mg/125 ml Drip) 125 ml @ 5 mls/hr TITRATE IV Last administered on 04/26/16at 07:33; Admin Dose 5 MLS/HR; Start 04/26/16 at 07:00 Digoxin (Digoxin) 0.25 mg DAILY@13 PO Last administered on 05/02/16 12:20; Admin Dose 0.25 MG; Start 04/27/16 at 13:00 Acetaminophen (Tylenol Tab) 650 mg Q6H PRN PO PAIN AND OR ELEVATED TEMP Last administered on 05/02/16 17:27; Admin Dose 650 MG; Start 04/27/16 at 17:30 Diphenoxylate HCl/ Atropine 2 tab 2 tab Q6H PRN PO DIARRHEA Last administered on 05/01/16 12:55; Admin Dose 2 TAB; Start 04/27/16 at 23:30 Ondansetron HCl/ Dextrose (Zofran Inj/D5W) 54 ml @ 108 mls/hr Q6H PRN IV NAUSEA AND/OR VOMITING; Start 04/28/16 at 10:30 Metoclopramide HCl (Reglan) 10 mg Q6H PRN IV N/V Last administered on 05/02/16 06:21; Admin Dose 10 MG; Start 04/28/16 at 10:30 Lorazepam (Ativan) 1 mg Q3H PRN IV anxiety Last administered on 05/02/16 21:04 ; Admin Dose 1 MG; Start 04/28/16 at 10:30 Bisoprolol Fumarate (Zebeta) 10 mg DAILY PO Last administered on 05/03/16 09:45 ; Admin Dose 10 MG; Start 04/30/16 at 09:00 Furosemide (Lasix) 40 mg DAILY PO Last administered on 05/03/16 08:53; Admin Dose 40 MG; Start 05/03/16 at 09:00 JELLY COOK May 03, 2016 11:07
[2016-05-03] MEDS: DIGOXIN 0.25 MG TAB PO SCH (12:42)
[2016-05-03] MEDS: RIVAROXABAN 20 MG TABLET PO SCH (17:49)
--- NOTE | 2016-05-03 18:01 | CONS ---
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 T4 and T3 levels decreasing. Cont. MMI 30 mg/d. Pt. should have radioactive iodine ablation in the future. Rec. [facility] outpatient endocrine clinic for this. Qualifiers: Thyrotoxicosis type: with diffuse goiter Qualified Code: E05.00 - Thyrotoxicosis with diffuse goiter and without thyroid storm Consultation Date/Type/Reason Admit Date/Time Apr 26, 2016 at 03:59 Initial Consult Date 04/26/16 Type of Consultation: Endocrinology Reason for Consultation Thyrotoxicosis Referring Provider: JOSE PALOMINO 24 HR Interval Summary Constitutional: improved (notes antibiotic made her feel bad. Now feels better ), no complaints Detailed Summary Respiratory: no complaints Cardiovascular: no complaints Gastrointestinal: no complaints Genitourinary: no complaints Musculoskeletal: no complaints Neurologic: no complaints Exam/Review of Systems Vital Signs Vitals VS - Last 72 Hours, by Label Date Time Temp Pulse Resp B/P Pulse Ox O2 Delivery O2 Flow Rate FiO2 05/03/16 16:05 103 05/03/16 15:45 97.7 79 22 126/66 94 05/03/16 12:27 83 05/03/16 11:49 98.0 82 22 129/73 92 05/03/16 08:08 101 05/03/16 08:00 97.5 82 22 132/72 98 05/03/16 04:56 97.8 89 20 131/75 99 05/03/16 04:05 77 05/03/16 00:31 97.5 84 18 129/80 99 05/03/16 00:13 97 05/02/16 20:29 93 05/02/16 20:01 97.7 89 19 136/72 98 05/02/16 16:45 84 05/02/16 16:21 97.6 58 23 142/78 98 05/02/16 12:16 95 05/02/16 12:15 97.6 69 21 118/59 99 05/02/16 08:22 97.9 80 22 114/66 98 05/02/16 08:21 92 05/02/16 04:04 93 05/02/16 04:01 97.3 89 18 115/64 96 Room Air 05/02/16 04:00 97.7 89 17 115/64 96 05/02/16 00:07 105 05/02/16 00:00 98.3 88 17 115/72 97 Room Air 05/02/16 00:00 98.3 87 15 116/72 95 05/01/16 20:26 86 05/01/16 20:00 98.3 82 15 117/76 100 05/01/16 20:00 97.8 87 16 116/76 100 Room Air 05/01/16 16:25 91 05/01/16 15:51 98.0 95 18 128/66 98 05/01/16 12:10 94 05/01/16 12:08 97.0 89 18 113/57 98 05/01/16 08:22 117 05/01/16 07:56 98.0 78 18 127/68 98 05/01/16 04:00 70 05/01/16 04:00 98.3 87 15 119/69 95 05/01/16 00:00 80 05/01/16 00:00 98.3 87 15 124/63 95 04/30/16 20:15 60 04/30/16 20:02 98.3 15 112/57 97 Vital Signs Date Time Temp Pulse Resp B/P Pulse Ox O2 Delivery O2 Flow Rate FiO2 05/03/16 16:05 103 05/03/16 15:45 97.7 22 126/66 94 05/02/16 04:01 Room Air Intake and Output 05/02/16 05/02/16 05/03/16 14:59 22:59 06:59 Intake Total 250 ml 800 ml 300 ml Balance 250 ml 800 ml 300 ml Exam Constitutional: alert, oriented, well developed Psych: nl mood/affect, no complaints Respiratory: clear to auscultation, normal air movement Cardiovascular: nl pulses, regular rate and rhythm, No edema, No murmurs/extra sounds, No rub Gastrointestinal: bowel sounds, nl liver, spleen, non-tender, soft, No mass, No rebound or guarding Musculoskeletal: nl extremities to inspection Extremities: normal pulses, No clubbing, No cyanosis, No edema Neurological: RUBBER TUBING BACKER II-XII intact, nl mental status, nl speech, nl strength Results Result Diagram: 05/03/16 0525 05/03/16 0540 Results 24 hrs Laboratory Tests Test 05/03/16 05:25 05/03/16 05:40 Anisocytosis 1+ Blood Morphology Comment Differential Comment MANUAL DIFF Eosinophils # 0.5 Eosinophils % 6.0 Free Thyroxine 1.83 H Hematocrit 28.3 L Hemoglobin 9.1 L Hypochromasia 1+ Lymphocytes # 1.3 Lymphocytes % 15.0 Mean Corpuscular Hemoglobin 25.5 L Mean Corpuscular Hemoglobin Concent 32.3 Mean Corpuscular Volume 78.9 L Mean Platelet Volume 7.8 Microcytosis 1+ Monocytes # 0.7 Monocytes % 8.0 Neutrophils # 6.0 Neutrophils % 71.0 Platelet Count 288 Red Blood Count 3.59 L Red Cell Distribution Width 17.0 H Thyroid Stimulating Hormone (TSH) < 0.015 L Total Triiodothyronine 2.26 H White Blood Count 8.4 Anion Gap 13 Blood Urea Nitrogen 28 H Calcium Level 9.4 Carbon Dioxide Level 28 Chloride Level 102 Creatinine 0.73 Glucose Level 83 Potassium Level 5.3 H Sodium Level 138 Medications Medications Current Medications Famotidine (Pepcid) 20 mg BID PO Last administered on 05/03/16 08:53; Admin Dose 20 MG; Start 04/26/16 at 09:00 Lisinopril (Zestril) 2.5 mg DAILY PO Last administered on 05/03/16 08:53; Admin Dose 2.5 MG; Start 04/26/16 at 09:00 Methimazole (Tapazole) 30 mg DAILY PO Last administered on 05/03/16 08:52; Admin Dose 30 MG; Start 04/26/16 at 18:00 Aspirin 81 mg 81 mg DAILY PO Last administered on 05/03/16 08:53; Admin Dose 81 MG; Start 04/26/16 at 09:00 Diltiazem HCl (Cardizem-D5W 125 Mg/125 ml Drip) 125 ml @ 5 mls/hr TITRATE IV Last administered on 04/26/16at 07:33; Admin Dose 5 MLS/HR; Start 04/26/16 at 07:00 Digoxin (Digoxin) 0.25 mg DAILY@13 PO Last administered on 05/03/16 12:42; Admin Dose 0.25 MG; Start 04/27/16 at 13:00 Acetaminophen (Tylenol Tab) 650 mg Q6H PRN PO PAIN AND OR ELEVATED TEMP Last administered on 05/02/16 17:27; Admin Dose 650 MG; Start 04/27/16 at 17:30 Diphenoxylate HCl/ Atropine 2 tab 2 tab Q6H PRN PO DIARRHEA Last administered on 05/01/16 12:55; Admin Dose 2 TAB; Start 04/27/16 at 23:30 Ondansetron HCl/ Dextrose (Zofran Inj/D5W) 54 ml @ 108 mls/hr Q6H PRN IV NAUSEA AND/OR VOMITING; Start 04/28/16 at 10:30 Metoclopramide HCl (Reglan) 10 mg Q6H PRN IV N/V Last administered on 05/02/16 06:21; Admin Dose 10 MG; Start 04/28/16 at 10:30 Lorazepam (Ativan) 1 mg Q3H PRN IV anxiety Last administered on 05/02/16 21:04 ; Admin Dose 1 MG; Start 04/28/16 at 10:30 Bisoprolol Fumarate (Zebeta) 10 mg DAILY PO Last administered on 05/03/16 09:45 ; Admin Dose 10 MG; Start 04/30/16 at 09:00 Furosemide (Lasix) 40 mg DAILY PO Last administered on 05/03/16 08:53; Admin Dose 40 MG; Start 05/03/16 at 09:00 VIRI ROSALES MD May 03, 2016 18:01
[2016-05-03 19:00] LABS: POTASSIUM 5.5 mmol/L (3.5-5.1)
[2016-05-03 19:02] LABS: CREATININE 1.05 mg/dl (0.44-1.00)
[2016-05-03 19:03] LABS: CALCIUM 9.1 mg/dl (8.4-10.2)
[2016-05-03] MEDS: LORAZEPAM 2 MG INJ IV PRN (22:56)
[2016-05-04 07:27] LABS: BASOPHIL # 0.1 10^3/ul (0.0-0.1); BASOPHILS % 1.9 % (0.0-2.0); EOSINOPHILS # 0.3 10^3/ul (0.0-0.5); EOSINOPHILS % 4.5 % (0.0-7.0); HEMOGLOBIN 8.6 g/dl (12.0-16.0); LYMPHOCYTES # 2.1 10^3/ul (0.8-2.9); LYMPHOCYTES % 27.7 % (15.0-51.0); MEAN CORPUSCULAR HEMOGLOBIN 25.2 pg (29.0-33.0); MEAN CORPUSCULAR VOLUME 78.6 fl (82.0-101.0); MONOCYTE # 0.9 10^3/ul (0.3-0.9); MONOCYTES % 11.7 % (0.0-11.0); NEUTROPHIL # 4.2 10^3/ul (1.6-7.5); NEUTROPHILS % 54.2 % (39.0-77.0); PLATELET COUNT 288 10^3/UL (140-440); RED BLOOD COUNT 3.43 10^6/ul (4.20-5.40); RED CELL DISTRIBUTION WIDTH 17.5 % (11.5-14.5); UNCORRECTED WBC 7.7 10^3/ul (4.8-10.8); WHITE BLOOD COUNT 7.7 10^3/ul (4.8-10.8)
[2016-05-04 07:34] LABS: CONDITION 1; LH ANALYZER COMMENTS 1
[2016-05-04 08:04] LABS: POTASSIUM 5.3 mmol/L (3.5-5.1)
[2016-05-04 08:06] LABS: CREATININE 0.99 mg/dl (0.44-1.00)
[2016-05-04 08:15] VITALS: BP 104/64; RESP 20
[2016-05-04] MEDS: LISINOPRIL 5 MG TAB PO SCH (09:00)
[2016-05-04] MEDS: BISOPROLOL 5 MG TAB PO SCH (09:00)
[2016-05-04] MEDS: ASPIRIN (EC) 81 MG TAB PO SCH (09:18)
[2016-05-04] MEDS: FUROSEMIDE 20 MG TAB PO SCH (09:18)
[2016-05-04] MEDS: FAMOTIDINE 20 MG TAB PO SCH ×2 (09:19→20:35)
--- NOTE | 2016-05-04 09:44 | CONS ---
Date/Time of Note Date/Time of Note DATE: 05/04/16 TIME: 09:42 Assessment/Plan Assessment/Plan Chief Complaint/Hosp Course Acute on chronic systolic/diastolic heart failure: Her EF is ~30-35%. Unclear what the trigger was but possibly thyrotoxicosis leading to afib with RVR leading to CHF. Significant improvement, now ~euvolemic Afib with RVR: Secondary to thyrotoxicosis but exacerbating and exacerbated by heart failure. 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 EF 30-35%. As she is asymptomatic , at this time further ischemic evaluation may be difficult as she has multiple admissions due to noncompliance and if she would need a stent, this would make the situation more difficult. Once she has established outpt follow up she certainly needs ischemic eval. Cardiomyopathy: EF 35%. Most likely nonischemic but needs ischemic eval at some point Hyperthyroidism -change to lasix 20mg PO daily -continue digoxin -continue bisoprolol 10mg daily -lisinopril -Xarelto -will follow as needed as no further active cardiac issues Problems: Consultation Date/Type/Reason Admit Date/Time Apr 26, 2016 at 03:59 Initial Consult Date 04/26/16 Type of Consultation: Cardiology Referring Provider: JOSE PALOMINO 24 HR Interval Summary Free Text/Dictation No o/n events. Awaiting placement vs possible transfer to [facility] Exam/Review of Systems Vital Signs Vitals Vital Signs Date Time Temp Pulse Resp B/P Pulse Ox O2 Delivery O2 Flow Rate FiO2 05/04/16 08:15 98.1 67 20 104/64 98 05/02/16 04:01 Room Air Intake and Output 05/03/16 05/03/16 05/04/16 15:00 23:00 07:00 Intake Total 1200 ml Balance 1200 ml Exam Constitutional: alert, oriented Head: normocephalic Neck: No jvd Respiratory: clear to auscultation Cardiovascular: No regular rate and rhythm Gastrointestinal: soft Neurological: nl mental status, nl speech Results Result Diagram: 05/04/16 0540 05/04/16 0540 Results 24 hrs Laboratory Tests Test 05/03/16 18:21 05/04/16 05:40 Anion Gap 18 H 17 H Blood Urea Nitrogen 29 H 38 H Calcium Level 9.1 9.0 Carbon Dioxide Level 28 24 Chloride Level 99 100 Creatinine 1.05 H 0.99 Glucose Level 88 78 Potassium Level 5.5 H 5.3 H Sodium Level 139 136 Basophils # 0.1 Basophils % 1.9 Blood Morphology Comment Eosinophils # 0.3 Eosinophils % 4.5 Hematocrit 27.0 L Hemoglobin 8.6 L Lymphocytes # 2.1 Lymphocytes % 27.7 Mean Corpuscular Hemoglobin 25.2 L Mean Corpuscular Hemoglobin Concent 32.0 Mean Corpuscular Volume 78.6 L Mean Platelet Volume 8.0 Monocytes # 0.9 Monocytes % 11.7 H Neutrophils # 4.2 Neutrophils % 54.2 Nucleated Red Blood Cells # 0.0 Nucleated Red Blood Cells % 0.0 Platelet Count 288 Red Blood Count 3.43 L Red Cell Distribution Width 17.5 H White Blood Count 7.7 Medications Medications Current Medications Famotidine (Pepcid) 20 mg BID PO Last administered on 05/04/16 09:19; Admin Dose 20 MG; Start 04/26/16 at 09:00 Lisinopril (Zestril) 2.5 mg DAILY PO Last administered on 05/03/16 08:53; Admin Dose 2.5 MG; Start 04/26/16 at 09:00 Methimazole (Tapazole) 30 mg DAILY PO Last administered on 05/03/16 08:52; Admin Dose 30 MG; Start 04/26/16 at 18:00 Aspirin 81 mg 81 mg DAILY PO Last administered on 05/04/16 09:18; Admin Dose 81 MG; Start 04/26/16 at 09:00 Diltiazem HCl (Cardizem-D5W 125 Mg/125 ml Drip) 125 ml @ 5 mls/hr TITRATE IV Last administered on 04/26/16at 07:33; Admin Dose 5 MLS/HR; Start 04/26/16 at 07:00 Digoxin (Digoxin) 0.25 mg DAILY@13 PO Last administered on 05/03/16 12:42; Admin Dose 0.25 MG; Start 04/27/16 at 13:00 Acetaminophen (Tylenol Tab) 650 mg Q6H PRN PO PAIN AND OR ELEVATED TEMP Last administered on 05/02/16 17:27; Admin Dose 650 MG; Start 04/27/16 at 17:30 Diphenoxylate HCl/ Atropine 2 tab 2 tab Q6H PRN PO DIARRHEA Last administered on 05/01/16 12:55; Admin Dose 2 TAB; Start 04/27/16 at 23:30 Ondansetron HCl/ Dextrose (Zofran Inj/D5W) 54 ml @ 108 mls/hr Q6H PRN IV NAUSEA AND/OR VOMITING; Start 04/28/16 at 10:30 Metoclopramide HCl (Reglan) 10 mg Q6H PRN IV N/V Last administered on 05/02/16 06:21; Admin Dose 10 MG; Start 04/28/16 at 10:30 Lorazepam (Ativan) 1 mg Q3H PRN IV anxiety Last administered on 05/03/16 22:56 ; Admin Dose 1 MG; Start 04/28/16 at 10:30 Bisoprolol Fumarate (Zebeta) 10 mg DAILY PO Last administered on 05/03/16 09:45 ; Admin Dose 10 MG; Start 04/30/16 at 09:00 Furosemide (Lasix) 20 mg DAILY PO Last administered on 05/04/16 09:18; Admin Dose 20 MG; Start 05/04/16 at 09:00 JELLY COOK May 04, 2016 09:44
[2016-05-04] MEDS ORDERED: NA POLYST SULFON 15 GM/60 ML BTL PO ONE (10:00)
--- NOTE | 2016-05-04 10:04 | PN ---
Date/Time of Note Date/Time of Note DATE: 05/04/16 TIME: 10:00 Assessment/Plan VTE Prophylaxis VTE Prophylaxis Intervention: other (Xarelto) Lines/Catheters IV Catheter Type (from Nrs): Saline Lock Assessment/Plan Chief Complaint/Hosp Course Assessment/Plan 1. Atrial fibrillation with rapid ventricular response, likely secondary to #3 - rate controlled now - continue with BB, xarelto - f/u any further CV rec's 2. Non-ST elevation myocardial infarction - 2/2 demand ischemia likely from her CHF and afib w/ RVR, EF 30-35%. appreciate cardio recs - will need strict outpt CAD w/u when care can be more firmly established - f/u CV rec's - in addition to pt's thyroid issues, regarding her NSTEMI type 2, she is asymptomatic, but at this time further ischemic evaluation may be difficult as she has multiple admissions due to noncompliance and if she would need a stent, this would make the situation more difficult. She needs established CV care as she will need full CAD workup (ie: stress test, LHC, etc..) to assess for this. 3. Thyrotoxicosis - thought to be secondary to underlying Graves' disease with probable noncompliance with therapy. - continue methimazole, appreciate endo recs - Regarding pt's thyrotoxicosis - per endocrinology team rec's, they prefer pt to be followed closely regarding these thyroid issues. Her prescriptions need to make sure that is done with refills. - f/u TFT's - She will continue on Tapazole for the next 5-6 wks as well. 4. Cardiomyopathy with last known ejection fraction of 35%, drug induced versus ischemic - possible thyroid disorder induced 5. Congestive heart failure exacerbation. It is an acute variable systolic congestive heart failure exacerbation. - acute on chronic EF = 30-35% - per CV, continue today PO lasix - I/O's - monitor changes 6. Acute community-acquired pneumonia with probable early sepsis and lactic acidosis with tachycardia and lactic acidosis. Clinically improving. - continue with Azithro/Rocephin 7. Hx of Polysubstance abuse to include meth, heroin as well as alcohol - older adult social work specialist consult 8. Normocytic Anemia, likely 2/2 chronic disease - monitor H/H, if < 8 g/dL then transfuse 9. Destitution - older adult social work specialist for placement 10. GI ppx - pepcid 11. DVT ppx - xarelto dispo - f/u recs, older adult social work specialist consult, once cleared by consultants, discharge planning - strongly recommending SNF placement or transfer to [facility] Problems: Subjective 24 Hr Interval Summary Free Text/Dictation Pt has some left foot pain, asking to smoke, denies cp or palpitations. Exam/Review of Systems Vital Signs Vitals Vital Signs Date Time Temp Pulse Resp B/P Pulse Ox O2 Delivery O2 Flow Rate FiO2 05/04/16 08:15 98.1 67 20 104/64 98 05/02/16 04:01 Room Air Intake and Output 05/03/16 05/03/16 05/04/16 14:59 22:59 06:59 Intake Total 1200 ml Balance 1200 ml Exam Gen Huber: AAOx4 HEENT: NC/AT, PERRLA, EOMI NECK: supple, no thyromegaly THORAX: symmetrical, no obvious deformities CV: S1S2, irregularly irregular, no M/G/R Lungs: diminished breath sounds to the bases, no overt wheezing Abd: soft, NT/ND, +BS, no rebound, no guarding, neg HSM EXT: no edema, no ecchymosis, no clubbing, FROM, varicosities Neuro: CN II-XII grossly intact, no focal deficits Psych: some occasional depressed mood and affect Skin: C/D/I Results Result Diagram: 05/04/16 0540 05/04/16 0540 Results 24 hrs Laboratory Tests Test 05/03/16 18:21 05/04/16 05:40 Anion Gap 18 H 17 H Blood Urea Nitrogen 29 H 38 H Calcium Level 9.1 9.0 Carbon Dioxide Level 28 24 Chloride Level 99 100 Creatinine 1.05 H 0.99 Glucose Level 88 78 Potassium Level 5.5 H 5.3 H Sodium Level 139 136 Basophils # 0.1 Basophils % 1.9 Blood Morphology Comment Eosinophils # 0.3 Eosinophils % 4.5 Hematocrit 27.0 L Hemoglobin 8.6 L Lymphocytes # 2.1 Lymphocytes % 27.7 Mean Corpuscular Hemoglobin 25.2 L Mean Corpuscular Hemoglobin Concent 32.0 Mean Corpuscular Volume 78.6 L Mean Platelet Volume 8.0 Monocytes # 0.9 Monocytes % 11.7 H Neutrophils # 4.2 Neutrophils % 54.2 Nucleated Red Blood Cells # 0.0 Nucleated Red Blood Cells % 0.0 Platelet Count 288 Red Blood Count 3.43 L Red Cell Distribution Width 17.5 H White Blood Count 7.7 Medications Medications Current Medications Famotidine (Pepcid) 20 mg BID PO Last administered on 05/04/16 09:19; Admin Dose 20 MG; Start 04/26/16 at 09:00 Lisinopril (Zestril) 2.5 mg DAILY PO Last administered on 05/03/16 08:53; Admin Dose 2.5 MG; Start 04/26/16 at 09:00 Methimazole (Tapazole) 30 mg DAILY PO Last administered on 05/03/16 08:52; Admin Dose 30 MG; Start 04/26/16 at 18:00 Aspirin 81 mg 81 mg DAILY PO Last administered on 05/04/16 09:18; Admin Dose 81 MG; Start 04/26/16 at 09:00 Diltiazem HCl (Cardizem-D5W 125 Mg/125 ml Drip) 125 ml @ 5 mls/hr TITRATE IV Last administered on 04/26/16at 07:33; Admin Dose 5 MLS/HR; Start 04/26/16 at 07:00 Digoxin (Digoxin) 0.25 mg DAILY@13 PO Last administered on 05/03/16 12:42; Admin Dose 0.25 MG; Start 04/27/16 at 13:00 Acetaminophen (Tylenol Tab) 650 mg Q6H PRN PO PAIN AND OR ELEVATED TEMP Last administered on 05/02/16 17:27; Admin Dose 650 MG; Start 04/27/16 at 17:30 Diphenoxylate HCl/ Atropine 2 tab 2 tab Q6H PRN PO DIARRHEA Last administered on 05/01/16 12:55; Admin Dose 2 TAB; Start 04/27/16 at 23:30 Ondansetron HCl/ Dextrose (Zofran Inj/D5W) 54 ml @ 108 mls/hr Q6H PRN IV NAUSEA AND/OR VOMITING; Start 04/28/16 at 10:30 Metoclopramide HCl (Reglan) 10 mg Q6H PRN IV N/V Last administered on 05/02/16 06:21; Admin Dose 10 MG; Start 04/28/16 at 10:30 Lorazepam (Ativan) 1 mg Q3H PRN IV anxiety Last administered on 05/03/16 22:56 ; Admin Dose 1 MG; Start 04/28/16 at 10:30 Bisoprolol Fumarate (Zebeta) 10 mg DAILY PO Last administered on 05/03/16 09:45 ; Admin Dose 10 MG; Start 04/30/16 at 09:00 Furosemide (Lasix) 20 mg DAILY PO Last administered on 05/04/16 09:18; Admin Dose 20 MG; Start 05/04/16 at 09:00 Sodium Polystyrene Sulfonate (Kayexalate) 15 gm ONCE ONCE PO ; Start 05/04/16 at 10:00; Stop 05/04/16 at 10:01 ISABELL GUERRA May 04, 2016 10:04
[2016-05-04] MEDS: NICOTINE (21 MG/24 HR) PATCH TRANSDERM SCH (10:59)
[2016-05-04] MEDS: METHIMAZOLE 5 MG TAB PO SCH (11:00)
[2016-05-04] MEDS: LORAZEPAM 2 MG INJ IV PRN ×2 (13:12→21:43)
[2016-05-04] MEDS: DIGOXIN 0.25 MG TAB PO SCH (13:12)
--- NOTE | 2016-05-04 13:32 | CONS ---
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 sleeping today. Doing well on methimazole 30 mg per day. Awaiting placement. From placement pt. should be referred to [facility] in order to be scheduled for radioactive iodine ablation of the thyroid. Qualifiers: Thyrotoxicosis type: with diffuse goiter Qualified Code: E05.00 - Thyrotoxicosis with diffuse goiter and without thyroid storm Consultation Date/Type/Reason Admit Date/Time Apr 26, 2016 at 03:59 Initial Consult Date 04/26/16 Type of Consultation: Endocrinology Reason for Consultation Thyrotoxicosis Referring Provider: JOSE PALOMINO 24 HR Interval Summary Subjective hx not possible: pt non-verbal (sleeping) Exam/Review of Systems Vital Signs Vitals VS - Last 72 Hours, by Label Date Time Temp Pulse Resp B/P Pulse Ox O2 Delivery O2 Flow Rate FiO2 05/04/16 08:15 98.1 67 20 104/64 98 05/03/16 19:47 98.1 20 20 111/73 96 05/03/16 16:05 103 05/03/16 15:45 97.7 79 22 126/66 94 05/03/16 12:27 83 05/03/16 11:49 98.0 82 22 129/73 92 05/03/16 08:08 101 05/03/16 08:00 97.5 82 22 132/72 98 05/03/16 04:56 97.8 89 20 131/75 99 05/03/16 04:05 77 05/03/16 00:31 97.5 84 18 129/80 99 05/03/16 00:13 97 05/02/16 20:29 93 05/02/16 20:01 97.7 89 19 136/72 98 05/02/16 16:45 84 05/02/16 16:21 97.6 58 23 142/78 98 05/02/16 12:16 95 05/02/16 12:15 97.6 69 21 118/59 99 05/02/16 08:22 97.9 80 22 114/66 98 05/02/16 08:21 92 05/02/16 04:04 93 05/02/16 04:01 97.3 89 18 115/64 96 Room Air 05/02/16 04:00 97.7 89 17 115/64 96 05/02/16 00:07 105 05/02/16 00:00 98.3 88 17 115/72 97 Room Air 05/02/16 00:00 98.3 87 15 116/72 95 05/01/16 20:26 86 05/01/16 20:00 98.3 82 15 117/76 100 05/01/16 20:00 97.8 87 16 116/76 100 Room Air 05/01/16 16:25 91 05/01/16 15:51 98.0 95 18 128/66 98 Vital Signs Date Time Temp Pulse Resp B/P Pulse Ox O2 Delivery O2 Flow Rate FiO2 05/04/16 08:15 98.1 67 20 104/64 98 05/02/16 04:01 Room Air Intake and Output 05/03/16 05/03/16 05/04/16 14:59 22:59 06:59 Intake Total 1200 ml Balance 1200 ml Exam Constitutional: No alert (sleeping) Respiratory: clear to auscultation, normal air movement Cardiovascular: nl pulses, regular rate and rhythm, No edema, No murmurs/extra sounds, No rub Gastrointestinal: bowel sounds, nl liver, spleen, non-tender, soft, No mass, No rebound or guarding Musculoskeletal: nl extremities to inspection Extremities: normal pulses, No clubbing, No cyanosis, No edema Neurological: BRIM ROUNDER II-XII intact Results Result Diagram: 05/04/16 0540 05/04/16 0540 Results 24 hrs Laboratory Tests Test 05/03/16 18:21 05/04/16 05:40 Anion Gap 18 H 17 H Blood Urea Nitrogen 29 H 38 H Calcium Level 9.1 9.0 Carbon Dioxide Level 28 24 Chloride Level 99 100 Creatinine 1.05 H 0.99 Glucose Level 88 78 Potassium Level 5.5 H 5.3 H Sodium Level 139 136 Basophils # 0.1 Basophils % 1.9 Blood Morphology Comment Eosinophils # 0.3 Eosinophils % 4.5 Hematocrit 27.0 L Hemoglobin 8.6 L Lymphocytes # 2.1 Lymphocytes % 27.7 Mean Corpuscular Hemoglobin 25.2 L Mean Corpuscular Hemoglobin Concent 32.0 Mean Corpuscular Volume 78.6 L Mean Platelet Volume 8.0 Monocytes # 0.9 Monocytes % 11.7 H Neutrophils # 4.2 Neutrophils % 54.2 Nucleated Red Blood Cells # 0.0 Nucleated Red Blood Cells % 0.0 Platelet Count 288 Red Blood Count 3.43 L Red Cell Distribution Width 17.5 H White Blood Count 7.7 Medications Medications Current Medications Famotidine (Pepcid) 20 mg BID PO Last administered on 05/04/16 09:19; Admin Dose 20 MG; Start 04/26/16 at 09:00 Lisinopril (Zestril) 2.5 mg DAILY PO Last administered on 05/03/16 08:53; Admin Dose 2.5 MG; Start 04/26/16 at 09:00 Methimazole (Tapazole) 30 mg DAILY PO Last administered on 05/04/16 11:00; Admin Dose 30 MG; Start 04/26/16 at 18:00 Aspirin 81 mg 81 mg DAILY PO Last administered on 05/04/16 09:18; Admin Dose 81 MG; Start 04/26/16 at 09:00 Diltiazem HCl (Cardizem-D5W 125 Mg/125 ml Drip) 125 ml @ 5 mls/hr TITRATE IV Last administered on 04/26/16at 07:33; Admin Dose 5 MLS/HR; Start 04/26/16 at 07:00 Digoxin (Digoxin) 0.25 mg DAILY@13 PO Last administered on 05/04/16 13:12; Admin Dose 0.25 MG; Start 04/27/16 at 13:00 Acetaminophen (Tylenol Tab) 650 mg Q6H PRN PO PAIN AND OR ELEVATED TEMP Last administered on 05/02/16 17:27; Admin Dose 650 MG; Start 04/27/16 at 17:30 Diphenoxylate HCl/ Atropine 2 tab 2 tab Q6H PRN PO DIARRHEA Last administered on 05/01/16 12:55; Admin Dose 2 TAB; Start 04/27/16 at 23:30 Ondansetron HCl/ Dextrose (Zofran Inj/D5W) 54 ml @ 108 mls/hr Q6H PRN IV NAUSEA AND/OR VOMITING; Start 04/28/16 at 10:30 Metoclopramide HCl (Reglan) 10 mg Q6H PRN IV N/V Last administered on 05/02/16 06:21; Admin Dose 10 MG; Start 04/28/16 at 10:30 Lorazepam (Ativan) 1 mg Q3H PRN IV anxiety Last administered on 05/04/16 13:12 ; Admin Dose 1 MG; Start 04/28/16 at 10:30 Bisoprolol Fumarate (Zebeta) 10 mg DAILY PO Last administered on 05/03/16 09:45 ; Admin Dose 10 MG; Start 04/30/16 at 09:00 Furosemide (Lasix) 20 mg DAILY PO Last administered on 05/04/16 09:18; Admin Dose 20 MG; Start 05/04/16 at 09:00 Nicotine (Nicoderm 21 Mg/ 24hr) 1 patch DAILY TRANSDERM Last administered on 10:59; Admin Dose 1 PATCH; Start 05/04/16 at 10:30 VIRI ROSALES MD May 04, 2016 13:31
[2016-05-04] MEDS: RIVAROXABAN 20 MG TABLET PO SCH (17:18)
[2016-05-04 19:25] VITALS: BP 128/74; RESP 16
[2016-05-05] MEDS: LORAZEPAM 2 MG INJ IV PRN (02:36)
[2016-05-05] MEDS ORDERED: HYDROCODONE/APAP (5/325) TAB PO PRN (04:00)
[2016-05-05 07:39] VITALS: BP 116/57; RESP 18
[2016-05-05 08:08] LABS: HEMATOCRIT 26.8 % (37.0-47.0); HEMOGLOBIN 8.6 g/dl (12.0-16.0); MEAN CORPUSCULAR HEMOGLOBIN 25.3 pg (29.0-33.0); MEAN CORPUSCULAR HGB CONC 32.3 g/dl (32.0-37.0); MEAN CORPUSCULAR VOLUME 78.1 fl (82.0-101.0); MEAN PLATELET VOLUME 7.4 fl (7.4-10.4); PLATELET COUNT 298 10^3/UL (140-440); RED BLOOD COUNT 3.42 10^6/ul (4.20-5.40); RED CELL DISTRIBUTION WIDTH 17.2 % (11.5-14.5); UNCORRECTED WBC 6.6 10^3/ul (4.8-10.8); WHITE BLOOD COUNT 6.6 10^3/ul (4.8-10.8)
[2016-05-05 08:10] LABS: CONDITION 1; LH ANALYZER COMMENTS 1
[2016-05-05 08:30] LABS: POTASSIUM 5.5 mmol/L (3.5-5.1)
[2016-05-05 08:33] LABS: CREATININE 0.81 mg/dl (0.44-1.00)
[2016-05-05 08:34] LABS: CALCIUM 9.5 mg/dl (8.4-10.2)
[2016-05-05] MEDS: METHIMAZOLE 5 MG TAB PO SCH (09:20)
[2016-05-05] MEDS: FAMOTIDINE 20 MG TAB PO SCH (09:21)
[2016-05-05] MEDS: ASPIRIN (EC) 81 MG TAB PO SCH (09:21)
[2016-05-05] MEDS: FUROSEMIDE 20 MG TAB PO SCH (09:21)
[2016-05-05] MEDS: BISOPROLOL 5 MG TAB PO SCH (09:22)
[2016-05-05] MEDS: LISINOPRIL 5 MG TAB PO SCH (09:22)
[2016-05-05] MEDS: NICOTINE (21 MG/24 HR) PATCH TRANSDERM SCH (09:24)
--- NOTE | 2016-05-05 10:39 | PDOCDIS ---
Discharge Instructions CONDITION Patient Condition: Stable HOME CARE INSTRUCTIONS: Special Diet: REGULAR DIET ACTIVITY: Activity Restrictions: Slowly Increase Activity FOLLOW UP/APPOINTMENTS Appointments Please take your medications as prescribed. Please follow up with your endocrine doctor in the clinic at [facility] in the next 5-7 days. ISABELL GUERRA May 05, 2016 10:39
[2016-05-05] MEDS ORDERED: DIGO250T PO (10:43)
[2016-05-05] MEDS ORDERED: NICO1PAT6 TRANSDERM (10:43)
[2016-05-05] MEDS ORDERED: FAMO20TA18 PO (10:43)
[2016-05-05] MEDS ORDERED: BISO5TAB21 PO (10:43)
[2016-05-05] MEDS ORDERED: RIVA20TA PO (10:43)
[2016-05-05] MEDS ORDERED: LAS20 PO (10:43)
[2016-05-05] MEDS ORDERED: LISI-313 PO (10:43)
[2016-05-05] MEDS ORDERED: TAP5 PO (10:43)
[2016-05-05 10:56] LABS: BASOPHIL # 0.1 10^3/ul (0.0-0.1); EOSINOPHILS # 0.3 10^3/ul (0.0-0.5); MONOCYTE # 0.7 10^3/ul (0.3-0.9); NEUTROPHIL # 3.6 10^3/ul (1.6-7.5)
[2016-05-05] MEDS ORDERED: NA POLYST SULFON 15 GM/60 ML BTL PO ONE (11:00)
--- NOTE | 2016-05-05 11:34 | DS ---
DATE OF ADMISSION: 04/26/2016 DATE OF DISCHARGE: 04/28/2016 HOSPITAL COURSE: This is a 50-year-old female originally admitted on 04/26/2016, being discharged h ome on 05/05/2016. The patient initially came in with flu-like symptoms, palpitations and was found with atrial fibrillation with RVR. She was admitted to telemetry floor. She also had signs of non- ST elevation myocardial infarction type 2 secondary to thyrotoxicosis which was thought to have led to her atrial fibrillation with RVR and also CHF, so the patient was diuresed. She was treated for atrial fibrillation with RVR with appropriate rate controlling medications. Seen by cardiology team . She underwent an echocardiogram that showed ejection fraction of 30 to 35%, severe left ventricul ar systolic function, normal left ventricular wall thickness, mild enlargement of the left ventricle cavity, severe mitral valve regurg, moderate to severe tricuspid regurg, severe enlargement of left atrium, moderate enlargement of the right atrium. So she was seen by cardiology team for that. She was also seen by endocrinology team given her thyroid issues, she was found with thyrotoxicosis wit h diffuse goiter and without thyroid storm. She was started on which helped control her sympt oms as well. It was recommended by endocrinology team at some point in the next few weeks she will need to follow up and get that repeat thyroid lab test performed and also be scheduled for radioacti ve iodine ablation of the thyroid as well, but again over the course of her hospital stay her heart rate was stable. She was on antiarrhythmic and hypertension medications. She was transferred to med/ surg floor. She was started on Xarelto for blood clot prophylaxis for her AFib and she was able to ambulate and tolerate a p.o. diet. She worked with physical therapy as well to help with that. She was switched over from IV to p.o. Lasix after appropriately diuresing well and because her blood pr essure is controlled, her heart rate is controlled and her thyroid symptoms are improving and her CH F is resolving she will be discharged today in improved condition but she needs to follow up with en docrinology team for the reasons mentioned above. DISCHARGE MEDICATIONS: She will go home with the following medications: 1. Bisoprolol 10 mg p.o. daily. 2. Digoxin 0.25 mg daily. 3. Famotidine 20 mg b.i.d. 4. Lasix 20 mg p.o. daily. 5. Lisinopril 2.5 mg p.o. daily. 6. Methimazole 30 mg daily. 7. Nicotine patch 21 mg transdermal daily. 8. Xarelto 20 mg p.o. with dinner. Again, she will need to follow up with [facility], as that is where her primary insurance is. She will need to follow up with endocrinology department in the next 5 to 7 days, and again she brenda l need repeat thyroid blood tests, but more importantly she will need to be evaluated and scheduled for radioactive iodine ablation of the thyroid given her thyroid toxicosis. FINAL DIAGNOSES: 1. Atrial fibrillation with rapid ventricular response, possibly secondary to thyrotoxicosis, now i mproved on beta bill and digoxin and also on Xarelto. 2. Non-ST elevation myocardial infarction secondary to demand ischemia, likely from her CHF and Toby b, now improved on cardiac medications. 3. Thyrotoxicosis with diffuse goiter and without thyroid storm, now on methimazole and needs to be scheduled for radioactive iodine ablation of the thyroid in the next few weeks. 4. Cardiomyopathy with ejection fraction of 30 to 35%, now on cardiac medications. 5. Congestive heart failure exacerbation, acute on chronic. 6. Community-acquired pneumonia, probable early sepsis and lactic acidosis, now resolved with appro priate antibiotic treatment during this hospital stay. 7. History of polysubstance abuse including meth, heroin and alcohol in the past with social servic es consult performed. 8. Normocytic anemia secondary to chronic disease. Hematocrit and hemoglobin is stable. 9. Destitution. 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 10. History of tobacco dependence, now on nicotine patch. Smoking cessation education given to elton graves. Time spent discharging patient 50 minutes. Dictated By: ISABELL BROWN Conf#: [id number] DID#: [id number]
[2016-05-05] MEDS: DIGOXIN 0.25 MG TAB PO SCH (13:48)
--- NOTE | 2016-05-05 14:07 | CONS ---
Date/Time of Note Date/Time of Note DATE: 05/05/16 TIME: 14:05 Assessment/Plan Assessment/Plan Problems: (1) Thyrotoxicosis without thyroid storm Status: Chronic Comment: Pt. to be d/c'ed today. Needs to continue methimazole and follow-up at [facility] for appt. for PATINO ablation in the future. Qualifiers: Thyrotoxicosis type: with diffuse goiter Qualified Code: E05.00 - Thyrotoxicosis with diffuse goiter and without thyroid storm Consultation Date/Type/Reason Admit Date/Time Apr 26, 2016 at 03:59 Initial Consult Date 04/26/16 Type of Consultation: Endocrinology Reason for Consultation Thyrotoxicosis Referring Provider: JOSE PALOMINO 24 HR Interval Summary Constitutional: improved, no complaints Detailed Summary Respiratory: no complaints Cardiovascular: no complaints Gastrointestinal: no complaints Genitourinary: no complaints Musculoskeletal: no complaints Neurologic: no complaints Exam/Review of Systems Vital Signs Vitals VS - Last 72 Hours, by Label Date Time Temp Pulse Resp B/P Pulse Ox O2 Delivery O2 Flow Rate FiO2 05/05/16 07:39 98.6 91 18 116/57 97 05/04/16 19:25 98.2 66 16 128/74 98 05/04/16 08:15 98.1 67 20 104/64 98 05/03/16 19:47 98.1 20 20 111/73 96 05/03/16 16:05 103 05/03/16 15:45 97.7 79 22 126/66 94 05/03/16 12:27 83 05/03/16 11:49 98.0 82 22 129/73 92 05/03/16 08:08 101 05/03/16 08:00 97.5 82 22 132/72 98 05/03/16 04:56 97.8 89 20 131/75 99 05/03/16 04:05 77 05/03/16 00:31 97.5 84 18 129/80 99 05/03/16 00:13 97 05/02/16 20:29 93 05/02/16 20:01 97.7 89 19 136/72 98 05/02/16 16:45 84 05/02/16 16:21 97.6 58 23 142/78 98 Vital Signs Date Time Temp Pulse Resp B/P Pulse Ox O2 Delivery O2 Flow Rate FiO2 05/05/16 07:39 98.6 91 18 116/57 97 05/02/16 04:01 Room Air Intake and Output 05/04/16 05/04/16 05/05/16 15:00 23:00 07:00 Intake Total 1720 ml 640 ml Output Total 4 ml Balance 1716 ml 640 ml Exam Constitutional: alert, oriented, well developed Psych: nl mood/affect, no complaints Respiratory: clear to auscultation, normal air movement Cardiovascular: irregular rhythm, nl pulses, No edema, No murmurs/extra sounds, No regular rate and rhythm, No rub Gastrointestinal: bowel sounds, nl liver, spleen, non-tender, soft, No mass, No rebound or guarding Musculoskeletal: nl extremities to inspection Extremities: normal pulses, No clubbing, No cyanosis, No edema Neurological: FASHION DIRECTOR II-XII intact, nl mental status, nl speech, nl strength Results Result Diagram: 05/05/16 0759 05/05/16 0759 Results 24 hrs Laboratory Tests Test 05/05/16 07:59 Anion Gap 15 Band Neutrophils % 1.0 Basophils # 0.1 Basophils % 1.0 Blood Morphology Comment Blood Urea Nitrogen 30 H Calcium Level 9.5 Carbon Dioxide Level 25 Chloride Level 104 Creatinine 0.81 Eosinophils # 0.3 Eosinophils % 4.0 Glucose Level 82 Hematocrit 26.8 L Hemoglobin 8.6 L Lymphocytes # 2.0 Lymphocytes % 30.0 Mean Corpuscular Hemoglobin 25.3 L Mean Corpuscular Hemoglobin Concent 32.3 Mean Corpuscular Volume 78.1 L Mean Platelet Volume 7.4 Monocytes # 0.7 Monocytes % 10.0 Neutrophils # 3.6 Neutrophils % 54.0 Platelet Count 298 Potassium Level 5.5 H Red Blood Count 3.42 L Red Cell Distribution Width 17.2 H Sodium Level 138 White Blood Count 6.6 Medications Medications Current Medications Famotidine (Pepcid) 20 mg BID PO Last administered on 05/05/16 09:21; Admin Dose 20 MG; Start 04/26/16 at 09:00 Lisinopril (Zestril) 2.5 mg DAILY PO Last administered on 05/05/16 09:22; Admin Dose 2.5 MG; Start 04/26/16 at 09:00 Methimazole (Tapazole) 30 mg DAILY PO Last administered on 05/05/16 09:20; Admin Dose 30 MG; Start 04/26/16 at 18:00 Aspirin 81 mg 81 mg DAILY PO Last administered on 05/05/16 09:21; Admin Dose 81 MG; Start 04/26/16 at 09:00 Diltiazem HCl (Cardizem-D5W 125 Mg/125 ml Drip) 125 ml @ 5 mls/hr TITRATE IV Last administered on 04/26/16at 07:33; Admin Dose 5 MLS/HR; Start 04/26/16 at 07:00 Digoxin (Digoxin) 0.25 mg DAILY@13 PO Last administered on 05/05/16 13:48; Admin Dose 0.25 MG; Start 04/27/16 at 13:00 Acetaminophen (Tylenol Tab) 650 mg Q6H PRN PO PAIN AND OR ELEVATED TEMP Last administered on 05/02/16 17:27; Admin Dose 650 MG; Start 04/27/16 at 17:30 Diphenoxylate HCl/ Atropine 2 tab 2 tab Q6H PRN PO DIARRHEA Last administered on 05/01/16 12:55; Admin Dose 2 TAB; Start 04/27/16 at 23:30 Ondansetron HCl/ Dextrose (Zofran Inj/D5W) 54 ml @ 108 mls/hr Q6H PRN IV NAUSEA AND/OR VOMITING; Start 04/28/16 at 10:30 Metoclopramide HCl (Reglan) 10 mg Q6H PRN IV N/V Last administered on 05/02/16 06:21; Admin Dose 10 MG; Start 04/28/16 at 10:30 Lorazepam (Ativan) 1 mg Q3H PRN IV anxiety Last administered on 05/05/16 02:36 ; Admin Dose 1 MG; Start 04/28/16 at 10:30 Bisoprolol Fumarate (Zebeta) 10 mg DAILY PO Last administered on 05/05/16 09:22 ; Admin Dose 10 MG; Start 04/30/16 at 09:00 Furosemide (Lasix) 20 mg DAILY PO Last administered on 05/05/16 09:21; Admin Dose 20 MG; Start 05/04/16 at 09:00 Nicotine (Nicoderm 21 Mg/ 24hr) 1 patch DAILY TRANSDERM Last administered on 09:24; Admin Dose 1 PATCH; Start 05/04/16 at 10:30 Acetaminophen/ Hydrocodone Bitart ([place] (5)) 1 tab Q4H PRN PO PAIN Last administered on 05/05/16t 04:01; Admin Dose 1 TAB; Start 05/05/16 at 04:00 VIRI ROSALES MD May 05, 2016 14:07
== END 2016-05-05 16:40 | disposition home or self-care (01) | DRG 871 ==
LOC: E/R 01:48 → TEL 03:59 → SDS 16:32 → TEL 21:15 → MS2 05-03 19:30
PROVIDERS: ADMIT Family Medicine; ATTEND Family Medicine
DX: A41.9 Sepsis, unspecified organism (principal); J18.9 Pneumonia, unspecified organism; I21.4 Non-ST elevation (NSTEMI) myocardial infarction; R65.21 Severe sepsis with septic shock; I50.23 Acute on chronic systolic (congestive) heart failure; I42.9 Cardiomyopathy, unspecified; E05.00 Thyrotoxicosis with diffuse goiter without thyrotoxic crisis or storm; I48.91 Unspecified atrial fibrillation; Z59.0 Homelessness; Z72.0 Tobacco use; Z91.19 Patient's noncompliance with other medical treatment and regimen; F19.21 Other psychoactive substance dependence, in remission; Z79.02 Long term (current) use of antithrombotics/antiplatelets; D64.9 Anemia, unspecified
CPT/HCPCS: 36415; 71010; 80048; 80053; 80061; 80076; 80162; 81001; 81003; 82550; 82553; 83540; 83605; 83735; 84436; 84439; 84443; 84479; 84480; 84484; 85025; 85610; 85730; 87040; 87075; 87086; 87400; 93005; 93306; 96365; 96366; 96375; 96376; 97116; 97163; 97530; G0479; J0456; J0696; J1940; J2060; J2405; J2765; J3370; J3475; J7030; J7040

== ENCOUNTER 2016-05-25 08:18 | Emergency (ER) | payer OTHER ==
[~2016-05-25] VITALS: Wt 65.0 kg
[~2016-05-25 08:18] MED LIST changes: +BISO5TAB21 PO; -CLON-379 PO; +DIGO250T PO; -DOXY-220 PO; -Digoxin PO; -FAMO-95 PO; +FAMO20TA18 PO; +LAS20 PO; +LISI-313 PO; -LISI-523 PO; +NICO1PAT6 TRANSDERM; -PROP40TA4 PO
--- NOTE | 2016-05-25 09:40 | RADRPT ---
PROCEDURE: Chest x-ray CLINICAL INDICATION: Chest pain TECHNIQUE: Chest single view COMPARISON: 04/18/2016 FINDINGS: There is stable moderate cardiomegaly. Pulmonary vessels are borderline prominent. No confluent pn eumonia seen. The costophrenic angles are sharp. The visualized bony thorax is unremarkable. IMPRESSION: 1. Stable moderate cardiomegaly. 2. Pulmonary vessels borderline prominent RPTAT: HH .Swapnil Blcakman MD, MD Date Time Electronically viewed and signed by .Swapnil Blackman MD, on 05/25/2016 09:40 .W/
--- NOTE | 2016-05-25 10:11 | ERD ---
ER Documentation Chief Complaint Date/Time DATE: 05/25/16 TIME: 10:07 Chief Complaint SOB WITH MULTIPLE COMPLAINTS. ALTERED MENTAL STATUS.NO TRAUMA. AMS NOTED HPI This is a 50-year-old female with a known history of atrial fibrillation and Graves' disease. The patient was brought into the emergency department dropped off by an unknown male who stated he had just met the patient on that she was complaining of difficulty breathing and had multiple complaints such as left arm pain. The patient states she has no headache or changes in vision. She denies any chest pain or pressure that radiates to the neck arm back or jaw. The patient denies any recent remote blunt chest or penetrating abdominal wall trauma. She stated there was no sexual physical salt. The patient stated she does not want to be in the hospital and is refusing all treatment. ROS All systems reviewed and are negative except as per history of present illness. Medications Home Meds Active Scripts Furosemide (Lasix) 20 Mg Tab, 20 MG PO DAILY, #30 TAB 4 Refills Prov:ISABELL GUERRA S. 05/05/16 Lisinopril* (Lisinopril*) 5 Mg Tablet, 2.5 MG PO DAILY, #30 TAB 4 Refills Prov:MARIISABELL S. 05/05/16 Rivaroxaban* (Xarelto*) 20 Mg Tablet, 20 MG PO WITH DINNER, #30 TAB 4 Refills Prov:MARIISABELL S. 05/05/16 Nicotine* (Nicotine* Patch) 21 mg/day Patch, 1 PATCH TRANSDERM DAILY, #30 4 Refills Prov:ISABELL GUERRA S. 05/05/16 Methimazole* (Methimazole*) 5 Mg Tablet, 30 MG PO DAILY, #30 TAB 4 Refills Prov:MARIISABELL S. 05/05/16 Famotidine* (Famotidine*) 20 Mg Tablet, 20 MG PO BID, #60 TAB 4 Refills Prov:ISABELL GUERRA S. 05/05/16 Digoxin* (Digitek*) 250 Mcg Tablet, 0.25 MG PO DAILY@13, #30 TAB 4 Refills Prov:ISABELL GUERRA S. 05/05/16 Bisoprolol Fumarate* (Bisoprolol Fumarate*) 5 Mg Tablet, 10 MG PO DAILY, #30 TAB 4 Refills Prov:ISABELL GUERRA 05/05/16 Allergies Allergies: Coded Allergies: No Known Allergy (Unverified , 04/26/16) PMhx/Soc History of Surgery: Yes (COSMETIC SURGERY) Anesthesia Reaction: No Hx Neurological Disorder: No Hx Respiratory Disorders: Yes (PNEUMONIA) Hx Cardiac Disorders: Yes (A-FIB PER PT) Hx Psychiatric Problems: No Hx Miscellaneous Medical Probl: Yes (afib, HTN, graves disease, CHF) Hx Alcohol Use: Yes Hx Substance Use: Yes Hx Tobacco Use: Yes Smoking Status: Current every day smoker Physical Exam Vitals Vital Signs Date Time Temp Pulse Resp B/P Pulse Ox O2 Delivery O2 Flow Rate FiO2 05/25/16 08:20 98.8 105 22 162/78 100 Physical Exam Constitutional:Well-developed. Well-nourished. HEENT:Normocephalic. Atraumatic.Pupils were equal round reactive to light. Moist mucous membranes.No tonsillar exudates. No nasoseptal hematoma. No hemotympanum Neck: No nuchal rigidity. No lymphadenopathy. No posterior cervical spine tenderness or step-offs. Respiratory: Not using accessory muscles of respiration.Lungs were clear to auscultation bilaterally. No rhonchi. No rales. No wheezing. Cardiovascular: Irregular irregular rhythm.No murmurs. No rubs were appreciated.S1, S2 normal. Distal pulses are palpable 2+ bilaterally. GI: Abdomen was soft. Nontender. Non Distended. No pulsatile abdominal masses or bruits. No rebound. No guarding. Bowel sounds were present and normal. Muscle skeletal: Full range of motion of both the upper and lower extremities bilaterally.Normal muscle tone.No assymetrical calf tenderness or swelling. Skin: No petechia, no purpura. No lesions on the palms or the soles of the feet. No maculopapular rash. NEURO: Patient was alert, awake, orientated x3.No facial droop. Gait observed and normal with no ataxia.Speech had regular rate and rhythm. No focal neurological deficits. Procedures/MDM The patient presented to the emergency department with a possible change in their mental status according to the male who dropped the patient off however the patient herself states there is absolutely no changes in her mental status. The patient also complained of shortness of breath. The differential diagnosis is diverse however reversible causes such as hypoglycemia, opiate overdose, thiamine deficiency were immediately considered. The patient was refusing to be placed on a cardiac surgeon, continuous pulse oximetry or IV access. The patients airway was secure however hypoxic events such as anemia, shock, or severe pulmonary disease were all considered as etiologies in this patients presentation. Circulation assessed with good cap refill and did not require fluids or pressure support. Finger stick for rapid glucose determined to be normal. 12 Lead EKG tracing ordered and reviewed by myself showed: Irregular regular rhythm of 80 bpm and no arrhythmia. IA interval normal. QRS duration normal. No ST segment elevation No ST segment depression. No changes consistent with acute ischemia. The patient did allow for chest radiograph to be performed and this was reviewed by myself and the radiologist and indicated the followin. Stable moderate cardiomegaly. 2. Pulmonary vessels borderline prominent The patient was very adamant that she wanted to leave AGAINST MEDICAL ADVICE as she was refusing all treatment. The patient was a medical capacity to make her own decisions. She decided to leave AGAINST MEDICAL ADVICE despite me explaining worsening of her conditions that could result in possible as I could not fully evaluate the etiology of the patient's shortness of breath. She was however instructed that she can return to the emergency department at any time if there is any worsening of her symptoms. She was also refusing a social work consult Departure Diagnosis: Primary Impression: Shortness of breath Additional Impression: Left against medical advice Condition: Fair Patient Instructions: [place] Form- 1 ISELA BAH May 25, 2016 10:11
== END 2016-05-25 09:42 | disposition left against medical advice (07) ==
LOC: E/R 08:18
DX: R06.02 Shortness of breath (principal); I10 Essential (primary) hypertension; I50.9 Heart failure, unspecified; F17.210 Nicotine dependence, cigarettes, uncomplicated
CPT/HCPCS: 71010; 93005; Z7502

== ENCOUNTER 2016-05-27 22:49 | Emergency (ER) | payer OTHER ==
[~2016-05-27] VITALS: Ht 177.8 cm; Wt 51.5 kg
[2016-05-27 22:50] VITALS: Ht 177.8 cm; Wt 51.5 kg
[2016-05-28] MEDS ORDERED: SOD CHLORIDE 0.9% 500 ML IV STA (01:32)
[2016-05-28 02:26] LABS: BASOPHIL # 0.1 10^3/ul (0.0-0.1); BASOPHILS % 1.6 % (0.0-2.0); EOSINOPHILS # 0.1 10^3/ul (0.0-0.5); EOSINOPHILS % 2.2 % (0.0-7.0); HEMATOCRIT 27.8 % (37.0-47.0); HEMOGLOBIN 8.9 g/dl (12.0-16.0); LYMPHOCYTES # 2.3 10^3/ul (0.8-2.9); LYMPHOCYTES % 34.1 % (15.0-51.0); MEAN CORPUSCULAR HEMOGLOBIN 24.2 pg (29.0-33.0); MEAN CORPUSCULAR HGB CONC 32.2 g/dl (32.0-37.0); MEAN CORPUSCULAR VOLUME 75.1 fl (82.0-101.0); MEAN PLATELET VOLUME 7.6 fl (7.4-10.4); MONOCYTE # 0.6 10^3/ul (0.3-0.9); MONOCYTES % 8.7 % (0.0-11.0); NEUTROPHIL # 3.5 10^3/ul (1.6-7.5); NEUTROPHILS % 53.4 % (39.0-77.0); NUCLEATED RED BLOOD CELLS% 3.1 /100WBC (0.0-0.0); PLATELET COUNT 417 10^3/UL (140-440); RED CELL DISTRIBUTION WIDTH 18.8 % (11.5-14.5); UNCORRECTED WBC 6.6 10^3/ul (4.8-10.8); WHITE BLOOD COUNT 6.6 10^3/ul (4.8-10.8)
[2016-05-28 02:28] LABS: CHLORIDE 106 mmol/L (97-110)
[2016-05-28 02:29] LABS: ALBUMIN 3.5 g/dl (3.3-4.9); POTASSIUM 3.5 mmol/L (3.5-5.1); SODIUM 147 mmol/L (135-144)
[2016-05-28 02:30] LABS: CONDITION 1; LH ANALYZER COMMENTS 1; NUCLEATED RED BLOOD CELLS # 0.2 10^3/ul (0.0-0.0)
[2016-05-28 02:31] LABS: BILIRUBIN,INDIRECT 0.2 mg/dl (0-1.1); BILIRUBIN,TOTAL 0.2 mg/dl (0.2-1.3); CREATININE 0.73 mg/dl (0.44-1.00)
[2016-05-28 02:32] LABS: ALANINE AMINOTRANSFERASE 30 IU/L (13-69); ALBUMIN/GLOBULIN RATIO 0.74; ALKALINE PHOSPHATASE 148 IU/L (42-121); ANION GAP 17 (8-16); ASPARTATE AMINO TRANSFERASE 40 IU/L (15-46); BLOOD UREA NITROGEN 15 mg/dl (7-20); CARBON DIOXIDE 28 mmol/L (21-31); GLUCOSE 82 mg/dl (70-220); TOTAL PROTEIN 8.2 g/dl (6.1-8.1)
[2016-05-28 02:52] LABS: TROPONIN-I < 0.012 ng/ml (0.00-0.12)
[2016-05-28 03:00] VITALS: BP 132/98; PULSE 101; RESP 16
--- NOTE | 2016-05-28 03:23 | ERD ---
ER Documentation Chief Complaint Date/Time DATE: 05/28/16 TIME: 03:21 Chief Complaint tired&confused, been on cardiac meds HPI This is a 50-year-old female who says that she was brought here by her 2 friends who told her that she was altered. Patient says she is homeless but was with his 2 friends and they were all smoking methamphetamines and then they brought her here because she was acting weird she states. Patient says she feels absolutely fine and is not altered. Apparently the patient was here 2 days ago and went AGAINST MEDICAL ADVICE. Patient has no physical complaints such as headache chest pain shortness of breath abdominal pain nausea vomiting diarrhea or any focal neurological complaints. She is asking for a sandwich and wants to rest in the ER bed ROS All systems reviewed and are negative except as per history of present illness. Medications Home Meds Active Scripts Furosemide (Lasix) 20 Mg Tab, 20 MG PO DAILY, #30 TAB 4 Refills Prov:ISABELL GUERRA S. 05/05/16 Lisinopril* (Lisinopril*) 5 Mg Tablet, 2.5 MG PO DAILY, #30 TAB 4 Refills Prov:ISABELL GUERRA S. 05/05/16 Rivaroxaban* (Xarelto*) 20 Mg Tablet, 20 MG PO WITH DINNER, #30 TAB 4 Refills Prov:ISABELL GUERRA S. 05/05/16 Nicotine* (Nicotine* Patch) 21 mg/day Patch, 1 PATCH TRANSDERM DAILY, #30 4 Refills Prov:ISABELL GUERRA S. 05/05/16 Methimazole* (Methimazole*) 5 Mg Tablet, 30 MG PO DAILY, #30 TAB 4 Refills Prov:ISABELL GUERRA S. 05/05/16 Famotidine* (Famotidine*) 20 Mg Tablet, 20 MG PO BID, #60 TAB 4 Refills Prov:ISABELL GUERRA S. 05/05/16 Digoxin* (Digitek*) 250 Mcg Tablet, 0.25 MG PO DAILY@13, #30 TAB 4 Refills Prov:ISABELL GUERRA S. 05/05/16 Bisoprolol Fumarate* (Bisoprolol Fumarate*) 5 Mg Tablet, 10 MG PO DAILY, #30 TAB 4 Refills Prov:ISABELL GUERRA 05/05/16 Allergies Allergies: Coded Allergies: No Known Allergy (Unverified , 04/26/16) PMhx/Soc Medical and Surgical Hx: Unable to obtain History of Surgery: Yes (COSMETIC SURGERY) Anesthesia Reaction: No Hx Neurological Disorder: No Hx Respiratory Disorders: Yes (PNEUMONIA) Hx Cardiac Disorders: Yes (A-FIB PER PT) Hx Psychiatric Problems: No Hx Miscellaneous Medical Probl: Yes (afib, HTN, graves disease, CHF) Hx Alcohol Use: Yes Hx Substance Use: Yes (Patient stated that she used meth with boyfriend today ) Hx Tobacco Use: Yes Smoking Status: Current every day smoker FmHx Family History: No coronary disease Physical Exam Vitals Vital Signs Date Time Temp Pulse Resp B/P Pulse Ox O2 Delivery O2 Flow Rate FiO2 05/28/16 03:00 101 16 132/98 98 Room Air 05/28/16 02:30 86 16 117/79 98 Room Air 05/28/16 01:37 88 16 122/80 98 Room Air 05/27/16 22:50 97.4 71 18 111/56 95 Physical Exam Const: Well-developed, well-nourished Head: Atraumatic, normocephalic Eyes: Normal Conjunctiva, PERRLA, EOMI, normal sclera, no nystagmus ENT: Normal External Ears, Nose and Mouth, moist mucus membranes. Neck: Full range of motion. No meningismus, no lymphadenopathy. Resp: Clear to auscultation bilaterally, no wheezing, rhonchi, rales Cardio: Regular rate and rhythm, no murmurs, S1 S2 present Abd: Soft, non tender x 4, non distended. Normal bowel sounds, no guarding or rebound, no pulsitile abdominal masses or bruits Skin: No petechiae or rashes, no ecchymosis , no maculopapular rash Back: No midline or flank tenderness Ext: No cyanosis, or edema, FROM x 4, normal inspection, neurovascularly intact x 4 Neur: Awake and alert, STR 5/5 x 4, sensation intact x 4, no focal findings, cerebellum intact Psych: Normal Mood and Affect Result Diagram: 05/28/16 0149 05/28/16 0149 Results 24 hrs Laboratory Tests Test 05/28/16 01:49 Alanine Aminotransferase (ALT/SGPT) 30IU/L Albumin 3.5g/dl Albumin/Globulin Ratio 0.74 Alkaline Phosphatase 148IU/L Anion Gap 17 Aspartate Amino Transf (AST/SGOT) 40IU/L Basophils # 0.110^3/ul Basophils % 1.6% Blood Morphology Comment Blood Urea Nitrogen 15mg/dl Calcium Level 9.0mg/dl Carbon Dioxide Level 28mmol/L Chloride Level 106mmol/L Creatinine 0.73mg/dl Direct Bilirubin 0.00mg/dl Eosinophils # 0.110^3/ul Eosinophils % 2.2% Globulin 4.70g/dl Glucose Level 82mg/dl Hematocrit 27.8% Hemoglobin 8.9g/dl Indirect Bilirubin 0.2mg/dl Lymphocytes # 2.310^3/ul Lymphocytes % 34.1% Mean Corpuscular Hemoglobin 24.2pg Mean Corpuscular Hemoglobin Concent 32.2g/dl Mean Corpuscular Volume 75.1fl Mean Platelet Volume 7.6fl Monocytes # 0.610^3/ul Monocytes % 8.7% Neutrophils # 3.510^3/ul Neutrophils % 53.4% Nucleated Red Blood Cells # 0.210^3/ul Nucleated Red Blood Cells % 3.1/100WBC Platelet Count 66102^3/UL Potassium Level 3.5mmol/L Red Blood Count 3.7010^6/ul Red Cell Distribution Width 18.8% Sodium Level 147mmol/L Total Bilirubin 0.2mg/dl Total Protein 8.2g/dl Troponin I < 0.012ng/ml White Blood Count 6.610^3/ul Current Medications Medications (Trade) Dose Ordered Sig/Nichol Route PRN Reason Start Time Stop Time Status Last Admin Dose Admin Sodium Chloride (NS) 500 ml @ 500 mls/hr Q1H STAT IV 05/28/16 01:32 05/28/16 02:31 DC 05/28/16 01:43 Procedures/MDM Patient's labs are unremarkable. The patient has been coherent and awake alert and oriented the entire stay on discharge her home Departure Diagnosis: Primary Impression: Methamphetamine abuse Condition: Stable Patient Instructions: Substance abuse CHELY CASTILLO DO May 28, 2016 03:23
== END 2016-05-28 04:00 | disposition home or self-care (01) ==
LOC: E/R 22:49
DX: F15.10 Other stimulant abuse, uncomplicated (principal); F17.210 Nicotine dependence, cigarettes, uncomplicated; I10 Essential (primary) hypertension; I50.9 Heart failure, unspecified
CPT/HCPCS: 36415; 80053; 84484; 85025; J7040; Z7502